=== PATIENT | female | born 1940 | race Caucasian/White ===

== ENCOUNTER 2023-09-25 05:40 | Inpatient (IN) | payer MEDICARE, OTHER, SELFPAY ==
[2023-09-25] VITALS (14 sets, daily range): BP systolic 135–183; BP diastolic 83–105; BMI 19.7; BMI 19.0
--- NOTE | 2023-09-25 02:57 | ED.GENMED ---
History of Present Illness
<DANIEL Engle - Last Filed: 09/25/23 05:15>
General
Chief Complaint: Abdominal Pain
Source: patient
Exam Limitations: none
Time Seen by Provider: 09/25/23 02:41
Nursing documentation reviewed up to this point in time: agreed with
Travel History
Have you had any contact with someone who has COVID-19?: No
Do you have any symptoms of coronavirus? Fever > 100 degrees, chills, cough, shortness of breath, sore throat, loss of taste or smell, muscle aches, or headache?: No
History of Present Illness
History of Present Illness:
This is an 83 year old female with a PMH of Afib, HTN, HLD, COPD, RA, and appendectomy presenting to the ED c/o sudden onset nausea and vomiting. Pt states she was watching TV around 10 pm when she had to run to the bathroom and 'forcefully vomit'.
She vomitied 4 times, all non-bilious and non-bloody. Pt states she ate spaghetti and meatballs for dinner. She is also having associated RLQ abdominal pain that is constant and severe. Pt adds that she felt fatigue and weak yesterday and her legs
have been swollen x 1 week. She denies any fever, chills, LEONARD, CP, diarrhea, constipation, lightheadedness, dizziness, dysuria, flank pain, back pain or hematuria.
Pt is a former smoker, denies alcohol use, and uses medical marijuana.
Past History
<DANIEL Engle - Last Filed: 09/25/23 05:15>
Past History
ED Past Medical History: Arrthythmia (Afib), COPD, HTN and Hypercholesterolemia
ED Past Surgical History: Appendectomy and Gynecological (hysterectomy)
Social History
Tobacco: Former smoker
Alcohol: None
Drug: Marijuana
Personal:
Living: with family
Review of Systems
<DANIEL Engle - Last Filed: 09/25/23 05:15>
Review of Systems
Constitutional: Reports fatigue; Denies fever or chills
Respiratory: Reports trouble breathing; Denies hemoptysis
Cardiac: Denies chest pain or diaphoresis
ABD/GI: Reports abdominal pain, nausea and vomiting; Denies diarrhea or constipated
: Denies dysuria or bleeding
Musculoskeletal: Reports muscle pain and edema
Skin: Reports no symptoms; Denies itching
Neurological: Reports no symptoms; Denies dizzy or headache
Phy Exam
<DANIEL Engle - Last Filed: 09/25/23 05:15>
General Physical Exam
General Presentation: moderate distress
General age: appears stated age
General Skin: warm and dry
General Habitus: elderly and frail
General Mental: alert
General Hydration: dry mucous membranes
Cardiovascular Exam
Cardiovascular Exam: normal peripheral pulses and irregularly irregular
Heart Sounds: normal
Pulmonary Exam
Pulmonary Exam: no wheezing
Oxygen Status: oxygen 2 liters via NC
Cough: no cough
Respirations: mild increase in effort
Breath Sounds: Crackles: right upper and right lower
Gastrointestinal Exam
Gastrointestinal Exam: non distended, guarding and tender (RLQ and periumbilical)
Palpation: right lower quadrant: Severe tenderness
Auscultation of Abdomen: hypoactive
Neurological Exam
Neurological Exam: alert, oriented x3, no sensory deficits and speech normal
Musculoskeletal Exam
Musculoskeletal Exam: edema (pitting edema on b/l lower extremities) and other (tenderness to palpation of b/l lower extremities)
Skin Exam
Skin Exam: normal color and warm/dry
Psychiatric Exam
Psychiatric Exam: normal mood/affect
Course
<DANIEL Engle - Last Filed: 09/25/23 05:15>
Orders/Labs/Results
Orders:
Orders
09/25/23 02:20
Electrocardiogram (*1) Urgent
Reason for Study: Abdominal Pain
EKG- Treatment ONCE
IV Insert/Care/Rem.- Treatment PRN
09/25/23 02:33
Complete Blood Count/With Diff Urgent
09/25/23 03:16
CT Abd/pelvis W Iv Cont Urgent
Comment:
Reason For Exam: rlq abd pain
09/25/23 03:26
Morphine Sulfate 4 mg IV NOW STA
Ondansetron Injectable [Zofran] 4 mg IV NOW STA
09/25/23 03:43
Comprehensive Metabolic Panel Urgent
Lipase Urgent
09/25/23 04:10
HYDROmorphone [Dilaudid] 0.5 mg IV NOW STA
09/25/23 05:02
NG Tube [GI tube insertion- Treatment] ONCE
Urinalysis Reflex To Culture Urgent
Date Specimen was Collected: 09/25/23
Time Specimen was Collected: 05:01
Abnormal Lab Results
09/25/23 09/25/23
02:33 03:43
WBC 17.4 H 10^3/uL
(4.8-10.8)
MCHC 32.9 L g/dL
(33.0-37.0)
RDW 15.3 H %
(11.5-14.5)
Abs Immat Gran (auto) 0.1 H 10^3/uL
(0-0.05)
Absolute Neuts (auto) 14.0 H 10^3/uL
(1.4-6.5)
Absolute Monos (auto) 0.7 H 10^3/uL
(0.1-0.6)
Immature Gran % 0.6 H %
(0-0.5)
Neutrophils % 80.3 H %
(42.2-75.2)
Lymphocytes % 14.3 L %
(20.5-51.1)
BUN 19 H mg/dl
(7-17)
Creatinine 1.2 H mg/dL
(0.6-1.0)
Glucose 145 H mg/dl
(70-99)
Total Protein 5.9 L g/dl
(6.3-8.2)
Albumin 3.4 L g/dl
(3.5-5.0)
09/25/23 02:33
09/25/23 03:43
Vital Signs
Initial and Last Documented VS:
Initial Vital Signs
Temp
97.9 F
09/25/23 02:16
Last Documented Vital Signs
Temp Pulse Resp BP Pulse Ox
97.9 F 87 20 176/90 96
09/25/23 02:16 09/25/23 04:15 09/25/23 04:15 09/25/23 04:58 09/25/23 04:58
<Jesús Cool, - Last Filed: 09/25/23 05:05>
Orders/Labs/Results
Orders:
Orders
09/25/23 02:20
Electrocardiogram (*1) Urgent
Reason for Study: Abdominal Pain
EKG- Treatment ONCE
IV Insert/Care/Rem.- Treatment PRN
09/25/23 02:33
Complete Blood Count/With Diff Urgent
09/25/23 03:16
CT Abd/pelvis W Iv Cont Urgent
Comment:
Reason For Exam: rlq abd pain
09/25/23 03:26
Morphine Sulfate 4 mg IV NOW STA
Ondansetron Injectable [Zofran] 4 mg IV NOW STA
09/25/23 03:43
Comprehensive Metabolic Panel Urgent
Lipase Urgent
09/25/23 04:10
HYDROmorphone [Dilaudid] 0.5 mg IV NOW STA
09/25/23 05:02
NG Tube [GI tube insertion- Treatment] ONCE
Urinalysis Reflex To Culture Urgent
Date Specimen was Collected: 09/25/23
Time Specimen was Collected: 05:01
Abnormal Lab Results
09/25/23 09/25/23
03:43
WBC 17.4 H 10^3/uL
(4.8-10.8)
MCHC 32.9 L g/dL
(33.0-37.0)
RDW 15.3 H %
(11.5-14.5)
Abs Immat Gran (auto) 0.1 H 10^3/uL
(0-0.05)
Absolute Neuts (auto) 14.0 H 10^3/uL
(1.4-6.5)
Absolute Monos (auto) 0.7 H 10^3/uL
(0.1-0.6)
Immature Gran % 0.6 H %
(0-0.5)
Neutrophils % 80.3 H %
(42.2-75.2)
Lymphocytes % 14.3 L %
(20.5-51.1)
BUN 19 H mg/dl
(7-17)
Creatinine 1.2 H mg/dL
(0.6-1.0)
Glucose 145 H mg/dl
(70-99)
Total Protein 5.9 L g/dl
(6.3-8.2)
Albumin 3.4 L g/dl
(3.5-5.0)
09/25/23 02:33
09/25/23 03:43
Vital Signs
Initial and Last Documented VS:
Initial Vital Signs
Temp
97.9 F
09/25/23 02:16
Last Documented Vital Signs
Temp Pulse Resp BP Pulse Ox
97.9 F 87 20 176/90 96
09/25/23 02:16 09/25/23 04:15 09/25/23 04:15 09/25/23 04:58 09/25/23 04:58
<DO Johan Whitfield Last Filed: 09/25/23 05:05>
MDM/Problems Addressed
Differential Diagnosis Includes:
Small bowel obstruction, gastroenteritis, colitis, gallbladder issues, SMA syndrome, GERD
MDM/Problems Addressed:
83-year-old female with sudden onset nausea and vomiting with abdominal pain and right flank pain.
Chronic conditions affecting care:
CVA, COPD, A-fib, hypertension, hyperlipidemia, GERD, anxiety
<Jesús Cool DO - Last Filed: 09/25/23 05:05>
*Radiology
Radiology exam reviewed: radiology read reviewed
*Pulse Oximetry
Patient hypoxic: no
*Critical Care Note
Total Time (30-74mins, 75-104mins- exclusive of procedures): 30
comment:
Critical care statement: A total of 30 minutes of critical care time was provided for this patient. This time is separate from time utilized to perform the aforementioned documented procedures. Aggregate critical care time includes only time
during which I was engaged in work directly related to the patient's care, as described above, whether at the bedside or elsewhere in the Emergency Department.
Data Reviewed
Review of Other/Old Records Reveals: Labs
Source: patient, family and ambulance crew
<DO Johan Whitfield Last Filed: 09/25/23 05:05>
Patient Management
Social determinants of health affecting care: Strong social support
Discussion with other providers: Hospitalist
<DO Johan Whitfield Last Filed: 09/25/23 05:05>
Update Note
Update Note:
CT abdomen and pelvis with intravenous contrast
IMPRESSION:
Distended stomach with narrowed aortomesenteric angle which can be seen in the setting of SMA syndrome.
Acute gastroenteritis and esophagitis with gastroesophageal reflux.
Small bilateral pleural effusions with compressive atelectasis. All that are decompressed. No pancreatitis.
Polycystic kidneys without obstructing renal stone. No diverticulitis. 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 Severe left renal artery stenosis.
Chronic L3 vertebral body compression deformities.
ED Attending Note
<DANIEL Engle - Last Filed: 09/25/23 05:15>
-
Portions of this chart may have been created with voice recognition software.� Occasional wrong word or��sound alike� substitutions may have occurred due to the inherent limitations of voice recognition software.
<Jesús Cool DO - Last Filed: 09/25/23 05:05>
ED Attending Note
Patient seen and examined by attending physician: Yes
I performed the substantive portion of visit, reviewed & personally made and approve the management plan that is documented in note by myself or ANATOLY.: Yes
ED Attending Note:
Pleasant 83-year-old female who presents with nausea. She reports right flank pain. This began quite suddenly while watching television around 10 PM. She states that she vomited 4 times. Patient reports right lower quadrant abdominal pain that
she states is constant. She has had an appendectomy in the past. Denies fever, chills, chest pain, or shortness of breath. Patient was seen in conjunction with the PA student. I have reviewed and agree with the history and treatment plan
presented. On my independent physical exam, patient is awake, alert, and oriented x3, moderate acute distress. Heart is irregularly irregular, tachycardic. Lungs clear to auscultation bilaterally without wheezes rales or rhonchi. Abdomen is firm
diffusely with guarding. Limited bowel sounds throughout. Patient ambulates. She is typically on oxygen. She is on apixaban
Patient given a dose of morphine which did not help. Dilaudid given approximately 20 minutes later.
Discharge Plan
Departure
Patient Disposition: Admit
Date of Disposition: 09/25/23
Time of Disposition: 05:03
Admit to: Telemetry
Presentation/result/management discussed w/ accepting MD/DO: Hospitalist
Discharge Problem:
SMA syndrome, Abdominal pain
Prescriptions:
No Action
buspirone 5 mg Tablet
5 mg PO BID
fluticasone propion-salmeterol [Wixela Inhub] 250-50 mcg/dose Blister With Device
1 inh INHALATION R BID
acetaminophen 325 mg Tablet
650 mg PO Q6HPRN PRN (Reason: mild pain)
rabeprazole [AcipHex] 20 mg Tablet,Delayed Release (Dr/Ec)
20 mg PO DAILY
polyethylene glycol 3350 [Miralax] 17 gram Powder In Packet
17 g PO QPM
diltiazem HCl 240 mg Capsule,Extended Release 24hr
240 mg PO DAILY
bisoprolol fumarate 5 mg Tablet
2.5 mg PO DAILY
simvastatin 20 mg Tablet
20 mg PO QPM
trazodone 150 mg Tablet
150 mg PO HS
mirtazapine 45 mg Tablet
45 mg PO HS
estradiol [Estrace] 0.01 % (0.1 mg/gram) Cream
1 g VAGINAL .2X/WEEK
albuterol sulfate [ProAir HFA] 90 mcg/actuation Hfa Aerosol Inhaler
2 puff INHALATION Q6HPRN PRN (Reason: SOB)
fluticasone propionate 50 mcg/actuation [place],Suspension
2 spray INTRANASAL DAILYPRN PRN (Reason: ALLERGIES)
Humira 40 mg/0.8 mL Syringe Kit
40 mg SC Q2W
Spiriva Respimat 2.5 mcg/actuation Mist
2 inh INHALATION R DAILY
apixaban 2.5 mg Tablet
2.5 mg PO BID
bisoprolol fumarate 5 mg Tablet
2.5 mg PO DAILY Qty: 30 0RF
Referrals:
PRIVATE,PHYSICIAN [Active] -
Interventions
Interventions:
*Risk Screen - Suicide Last Done: 09/25/23 02:20
*General Assessment Last Done: 09/25/23 02:20
*Neglect/Abuse Screening Last Done: 09/25/23 02:20
ED- Fall Risk Assessment Last Done: 09/25/23 02:39
*ED COVID-19 Vaccine History Last Done: 09/25/23 02:20
IH-Tceprc-Vqhnbmplwi Assessment Last Done: 09/25/23 02:30
[2023-09-25 03:10] LABS: % Basophils 0.3 % (0-2); % Eosinophils 0.7 % (0-6); % Immature Granulocytes 0.6 % (0-0.5); % Lymphocytes 14.3 % (20.5-51.1); % Monocytes 3.8 % (1.7-9.3); % Neutrophils 80.3 % (42.2-75.2); Absolute Basophils 0.1 10^3/uL (0-0.2); Absolute Eosinophils 0.1 10^3/uL (0-0.7); Absolute Immature Granulocytes 0.1 10^3/uL (0-0.05); Absolute Lymphocytes 2.5 10^3/uL (1.2-3.4); Absolute Monocytes 0.7 10^3/uL (0.1-0.6); Hematocrit 39.5 % (37.0-47.0); Mean Corp Hgb Conc. 32.9 g/dL (33.0-37.0); Mean Corpuscular Hgb 30.4 pg (27.0-31.0); Mean Corpuscular Volume 92.3 fL (81.0-99.0); Mean Platelet Volume 10.3 fL (7.4-10.4); Nucleated Red Blood Cells % 0 %; Platelet Count 380 10^3/uL (130-400); Red Blood Cell Count 4.28 10^6/uL (4.20-5.40); Red Cell Dist. Width 15.3 % (11.5-14.5); White Blood Cell Count 17.4 10^3/uL (4.8-10.8)
[2023-09-25] MEDS: MORPHINE SULFATE 4 MG IV (03:30)
[2023-09-25] MEDS: ZOFRAN 4 MG IV ×2 (03:30→15:18)
[2023-09-25 04:13] LABS: ALT (SGPT) 12 U/L (0-35); AST (SGOT) 27 U/L (14-36); Albumin 3.4 g/dl (3.5-5.0); Alkaline Phosphatase 97 U/L (38-126); Blood Urea Nitrogen 19 mg/dl (7-17); Calcium 9.3 mg/dl (8.4-10.2); Carbon Dioxide 27 mmol/L (22-30); Chloride 102 mmol/L (98-107); Estimated Creatinine Clearance 30 ml/min; Glucose 145 mg/dl (70-99); Potassium 3.8 mmol/L (3.5-5.1); Sodium 139 mmol/L (135-145); Total Bilirubin 0.7 mg/dl (0.2-1.3); Total Protein 5.9 g/dl (6.3-8.2); eGFR 44.91
[2023-09-25] MEDS: DILAUDID 0.5 MG IV (04:16)
[2023-09-25 04:28] LABS: Lipase 34 U/L (23-300)
--- NOTE | 2023-09-25 05:06 | HPS.HSE ---
Addendum entered and electronically signed by Tim Haji MD 09/25/23 06:01:
Successful NGT placement on 2nd attempt
Immediately drained brownish liquid foloowed by slight blood staind fluid - ? traumatic NGT placement or GIB oozing
- T & S
- Blood consented
- Held Eliquis
- PPI gtt
- H & H q6h
- GI consult
Original Note:
Family Physician
-
Family Physician: PHYSICIAN PRIVATE
Chief Complaint
-
acute N/V and abdominal pain
History of Present Illness
HX male with a PMH of Afib, HTN, HLD, COPD, RA, and appendectomy pw sudden onset nausea and vomiting.
She vomited 4 times, all non-bilious and non-bloody. Pt states she ate spaghetti and meatballs for dinner. POS associated RLQ abdominal pain that is constant and severe. Pt adds that she felt fatigue and weak yesterday and her legs have been swollen
x 1 week.
ROS
She denies any fever, chills, LEONARD, CP, diarrhea, constipation, lightheadedness, dizziness, dysuria, flank pain, back pain or hematuria.
Medical History
Past Medical History
Past Medical History: Reports Other
Additional Past Medical History:
Afib, HTN, HLD, COPD, RA
Past Surgical History: Reports Appendectomy
Social History
Tobacco: Former Smoker
Alcohol: None
Family History
Family History: Not pertinent
Allergies / Home Medications
Allergies reflects when Allergies were last updated in [employer].
Home Medications with original date entered in [facility]
Allergy/Medication List:
Allergies
Allergy/AdvReac Type Severity Reaction Status Date / Time
No Known Drug Allergies Allergy Unknown Verified 09/25/23 02:17
Home Medications
acetaminophen 325 mg tablet 650 mg PO Q6HPRN PRN mild pain 10/19/22
adalimumab 40 mg/0.8 mL subcutaneous syringe kit (Humira) 40 mg SC Q2W Autoimmune disorder 10/19/22
albuterol sulfate 90 mcg/actuation aerosol inhaler (ProAir HFA) 2 puff inhalation Q6HPRN PRN SOB 10/19/22
apixaban 2.5 mg tablet 2.5 mg PO BID Blood clot prevention/tx 10/19/22
bisoprolol fumarate 5 mg tablet 2.5 mg PO DAILY Blood pressure 10/19/22
buspirone 5 mg tablet 5 mg PO BID Mental Health/Anxiety 10/19/22
diltiazem HCl 240 mg capsule,extended release 24 hr 240 mg PO DAILY Arrhythmia 10/19/22
estradiol 0.01% (0.1 mg/gram) vaginal cream (Estrace) 1 g vaginal .2X/WEEK Hormonal agent 10/19/22
fluticasone 250 mcg-salmeterol 50 mcg/dose blistr powdr for inhalation (Wixela Inhub) 1 inh inhalation R BID Lung/breathing issues 10/19/22
fluticasone propionate 50 mcg/actuation nasal spray,suspension 2 spray intranasal DAILYPRN PRN ALLERGIES 10/19/22
mirtazapine 45 mg tablet 45 mg PO HS Mental Health/Anxiety 10/19/22
polyethylene glycol 3350 17 gram oral powder packet (Miralax) 17 g PO QPM Constipation 10/19/22
rabeprazole 20 mg tablet,delayed release (AcipHex) 20 mg PO DAILY Gastrointestinal issue 10/19/22
simvastatin 20 mg tablet 20 mg PO QPM High cholesterol 10/19/22
tiotropium bromide 2.5 mcg/actuation mist for inhalation (Spiriva Respimat) 2 inh inhalation R DAILY Lung/breathing issues 10/19/22
trazodone 150 mg tablet 150 mg PO HS Sleep 10/19/22
bisoprolol fumarate 5 mg tablet 2.5 mg PO DAILY #30 tabs 10/22/22
Review of Systems
-
Constitutional: Reports No Symptoms
EENT: Reports No Symptoms
Respiratory: Reports No Symptoms
Cardiac: Reports No Symptoms
Abdomen/GI: Reports See HPI
: Reports No Symptoms
Musculoskeletal: Reports No Symptoms
Skin: Reports No Symptoms
Neurological: Reports No Symptoms
Endocrine: Reports No Symptoms
Hematologic/Lymphatic: Reports No Symptoms
Psych: Reports No Symptoms
Physical Exam
Vital Signs
Vital Signs
Temp Pulse Resp BP Pulse Ox
97.9 F 100 27 160/90 97
09/25/23 02:16 09/25/23 04:05 09/25/23 04:05 09/25/23 04:05 09/25/23 04:05
Physical Exam
General: Other (see below )
Laboratory Results
-
09/25/23 02:33
09/25/23 03:43
Laboratory Results
Total Bilirubin 0.7 mg/dl (0.2-1.3) 09/25/23 03:43
AST 27 U/L (14-36) 09/25/23 03:43
ALT 12 U/L (0-35) 09/25/23 03:43
Alkaline Phosphatase 97 U/L (38-126) 09/25/23 03:43
Lipase 34 U/L (23-300) 09/25/23 03:43
Data Reviewed
-
CT Scan: Report Reviewed by me
Lab Data: Labs Reviewed by me
Old Records: Reviewed
Impression/Plan
-
Reviewed VS: afebrile RR27 ST 100 BP 160/90
PE
Gen: mod distress
HEENT: anicteric
Neck: supple
Lungs: CTA
Cor:
Abdomen: distended abdomen, RLQ tenderness
[employer] AD[facility]: AAO3 , grossly normal
MS: no edema
Psych: nl mood and affect
Data
WCC 17.4
BUN 19
Cr 1.2 - 1.3 on 10/22/22
eGFR 45 c/w CKD3a
CT AP w IV contrast
- Distended stomach with narrowed aortomesenteric angle which can be seen in the setting of SMA syndrome.
- Acute gastroenteritis and esophagitis with gastroesophageal reflux.
- Small bilateral pleural effusions with compressive atelectasis. All that are decompressed. No pancreatitis.
- Polycystic kidneys without obstructing renal stone. No diverticulitis. 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 Severe left renal artery stenosis.
Chronic L3 vertebral body compression deformities.
EKG
ATRIAL FIBRILLATION WITH RAPID VENTRICULAR RESPONSE WITH PREMATURE VENTRICULAR
OR ABERRANTLY CONDUCTED COMPLEXES
LOW VOLTAGE QRS
CANNOT RULE OUT ANTERIOR INFARCT (CITED ON OR BEFORE 19-OCT-2022)
MARKED ST ABNORMALITY, POSSIBLE INFERIOR SUBENDOCARDIAL INJURY
ABNORMAL ECG
WHEN COMPARED WITH ECG OF 19-OCT-2022 14:26,
SIGNIFICANT CHANGES HAVE OCCURRED
Last hospitalist admission: 10/19/22- 10/22/22
1. Acute cerebrovascular accident.
2. Chronic persistent atrial fibrillation.
3. Left epistaxis, status post ENT cauterization on October 14
and again on October 17.
4. Essential hypertension.
5. Hyperlipidemia.
6. Rheumatoid arthritis on Humira.
ASSESSMENT & PLAN
Acute N/V and abdominal pain
CT PS for distended stomach with narrowed aortomesenteric angle which can be seen in the setting of SMA syndrome.
- NPO and NGT to decompress
- IVF
- anti emetics
- narcotic analgesia
- GS consult
HX AF on Eliquis
- cont Eliquis especailly with SMA syndrome
PCKdz per CT - patient just found that out
CKD3a/b
- Observe Cr
PHX
CVA Status Post tPA
HX Epistaxis s/p Cauterization
COPD
HTN
Kidney stones
Rheumatoid arthritis (on Humira)
Reflux
Anxiety
DVT Px: on Eliquis
Code: Full
IP TLM
[2023-09-25 05:28] LABS: Urine Albumin 1+ (Neg - Trace); Urine Bilirubin Negative (Negative); Urine Character Very Cloudy (Clear); Urine Color Yellow; Urine Glucose Negative (Negative); Urine Ketone Negative (Negative); Urine Leukocyte 2+ (Negative); Urine Nitrite Negative (Negative); Urine Occult Blood 2+ (Negative); Urine Urobilinogen Negative (Neg - 1+); Urine pH 6.5 (5.0-9.0)
[2023-09-25 05:54] LABS: Urine Amorphous Seen; Urine Mucus Many; Urine Squamous Cell >30 /LPF (Few)
[2023-09-25 05:55] LABS: Urine Bacteria Many (Negative); Urine White Cell >100 /HPF (0-5)
[2023-09-25 06:14] LABS: Hematocrit 37.5 % (37.0-47.0); Hemoglobin 12.7 g/dL (12.0-16.0); Mean Corp Hgb Conc. 33.9 g/dL (33.0-37.0); Mean Corpuscular Hgb 30.6 pg (27.0-31.0); Mean Corpuscular Volume 90.4 fL (81.0-99.0); Mean Platelet Volume 9.8 fL (7.4-10.4); Platelet Count 360 10^3/uL (130-400); Red Blood Cell Count 4.15 10^6/uL (4.20-5.40); Red Cell Dist. Width 15.1 % (11.5-14.5); White Blood Cell Count 16.5 10^3/uL (4.8-10.8)
[2023-09-25] MEDS: PROTONIX 100 IV (06:24)
[2023-09-25] MEDS: NSS 1000 IV ×2 (06:24→23:09)
[2023-09-25 06:25] LABS: Blood Urea Nitrogen 19 mg/dl (7-17); Calcium 9.5 mg/dl (8.4-10.2); Carbon Dioxide 26 mmol/L (22-30); Chloride 101 mmol/L (98-107); Estimated Creatinine Clearance 33 ml/min; Glucose 125 mg/dl (70-99); Potassium 4.6 mmol/L (3.5-5.1); Sodium 138 mmol/L (135-145); eGFR 49.86
--- NOTE | 2023-09-25 08:57 | CON.GI ---
Addendum entered and electronically signed by Radu Simon MD 09/25/23 10:53:
Patient seen and examined, agree with respecters note. Patient is an 83-year-old female who presents with acute onset of abdominal pain. She has had chronic symptoms for many years, with about a 30 pound weight loss over the past several years
with early satiety, decreased appetite and nausea. She had seen Dr. Salinas and has had a workup in the past which has been unremarkable including EGDs previously. CAT scan here results are currently pending though on my review there is definitely
abnormal loops of small intestine in the pelvis. Given her chronic symptoms and CT findings, possible adhesions and partial small bowel obstruction causing resultant slow transit and delayed gastric emptying. She is having bowel movements, on exam
with few bowel sounds mildly distended though soft. At this point will start clear liquid diet, plan upper GI with small bowel follow-through which will help also rule out SMA syndrome as suggested on the initial CT scan which clinically seems much
less likely, and also help evaluate small bowel downstream.
Addendum entered and electronically signed by CHAPIN Renteria 09/25/23 09:49:
some elevated FBS on admission- hbgA1C pending for 09/26
Original Note:
Consultation
-
Date/Time Consultation Requested: 09/25/23 0730
Date/Time Consultation Performed: 09/25/23 0850
Requesting Provider: Tim Haji MD
Performing Provider: CHAPIN Renee, Paul Simon MD
Reason for Consultation: nausea/vomiting/abdominal pain abnormal imaging
Medical History
Chief Complaint / HPI
Chief Complaint: abnormal imaging
History of Present Illness:
Pt is an 83yo with hx Afib on Eliquis, RA on Humira, HTN, HLD, COPD and prior appe with onset of nausea and vomiting. On admission preliminary CT with distended stomach with narrowing of angiomesenteric angle with concern for SMA syndrome. In
reviewing with patient she has had about 30-40 lb wt loss over several years. She has been followed by Dr. Salinas but seeking new GI as MD is retiring. She began with worsening reflux currently on Aciphex. She then began with increased nausea,
fullness, decreased appetite and poor sense of taste in mouth. She was seen by Dr. Salinas who declined to proceed with EGD due to underlying lung disease and recently was ordered from Gastric emptying scan by PCP due at [facility] in next few weeks.
She even started medical marijuana about 2 weeks ago. She was noted with onset of nausea after eating spaghetti dinner around 5 PM then vomiting large volume about 7 pm prior to admission. She initially felt better then began with abdominal
pain and present for admission. Per records NGT was placed and ER with noted drainage of brownish liquid with concern for traumatic NGT placement and NGT was d/c per patient by surgery.
She currently admits to ongoing GERD but feeling better but frustrated with ongoing inability to eat. She has some constipation and has been on Miralax as recommended by her urologist with hx UTI's and bowel issues. She denies dysphagia,
odynophagia, hematemesis, diarrhea, blood or black in stools. Last EGD and colonoscopy with Dr. Salinas recalls as stable with noted reflux. Last procedures at 2013 with normal EGD with neg bx and colon with diverticulosis and hemorrhoids.
Past Medical History
Past Medical History: Arrhythmias (afib on Eliquis), COPD, HTN, Hypercholesterolemia and Other (RA on Humira, UTI's)
Past Surgical History: Appendectomy
Social History
Tobacco: Former Smoker
Alcohol: None
Drug: Marijuana
Personal:
Living: With Family
Employment: Retired
Family History
Family History: Other (pt denies but her records family hx colon CA)
Allergies / Home Medications
Allergy/AdvReac Type Severity Reaction Status Date / Time
No Known Drug Allergies Allergy Unknown Verified 09/25/23 02:17
Medication Instructions Recorded
acetaminophen 325 mg tablet 650 mg PO Q6HPRN PRN mild pain 10/19/22
adalimumab 40 mg/0.8 mL 40 mg SC Q2W Autoimmune disorder 10/19/22
subcutaneous syringe kit (Humira)
albuterol sulfate 90 mcg/actuation 2 puff inhalation Q6HPRN PRN SOB 10/19/22
aerosol inhaler (ProAir HFA)
apixaban 2.5 mg tablet 2.5 mg PO BID Blood clot 10/19/22
prevention/tx
bisoprolol fumarate 5 mg tablet 2.5 mg PO DAILY Blood pressure 10/19/22
buspirone 5 mg tablet 5 mg PO BID Mental Health/Anxiety 10/19/22
diltiazem HCl 240 mg 240 mg PO DAILY Arrhythmia 10/19/22
capsule,extended release 24 hr
estradiol 0.01% (0.1 mg/gram) 1 g vaginal .2X/WEEK Hormonal agent 10/19/22
vaginal cream (Estrace)
fluticasone 250 mcg-salmeterol 50 1 inh inhalation R BID 10/19/22
mcg/dose blistr powdr for Lung/breathing issues
inhalation (Wixela Inhub)
fluticasone propionate 50 2 spray intranasal DAILYPRN PRN 10/19/22
mcg/actuation nasal ALLERGIES
spray,suspension
mirtazapine 45 mg tablet 45 mg PO HS Mental Health/Anxiety 10/19/22
polyethylene glycol 3350 17 gram 17 g PO QPM Constipation 10/19/22
oral powder packet (Miralax)
rabeprazole 20 mg tablet,delayed 20 mg PO DAILY Gastrointestinal 10/19/22
release (AcipHex) issue
simvastatin 20 mg tablet 20 mg PO QPM High cholesterol 10/19/22
tiotropium bromide 2.5 2 inh inhalation R DAILY 10/19/22
mcg/actuation mist for inhalation Lung/breathing issues
(Spiriva Respimat)
trazodone 150 mg tablet 150 mg PO HS Sleep 10/19/22
bisoprolol fumarate 5 mg tablet 2.5 mg PO DAILY #30 tabs 10/22/22
Review of Systems
-
History Source: Patient
Constitutional: Reports Weight Loss (over time 40 lbs ) and Fatigue
EENT: Reports Other (decreased taste sensation)
Respiratory: Reports Trouble Breathing (with COPD on chronic O2 )
Cardiac: Reports No Symptoms
Abdomen/GI: Reports Abdominal Pain, Nausea, Vomiting, Constipated and Anorexia
: Reports Other (prior hx UTI's)
Musculoskeletal: Reports No Symptoms
Skin: Reports No Symptoms
Neurological: Reports Weakness
Endocrine: Reports No Symptoms
Hematologic/Lymphatic: Reports No Symptoms
Vital Signs
Temp Pulse Resp BP Pulse Ox
98.2 F 128 20 183/99 97
09/25/23 08:15 09/25/23 08:15 09/25/23 08:15 09/25/23 08:15 09/25/23 08:15
Physical Exam
Exam
General: Well Developed, Well Nourished, No Apparent Distress and Other (thin appearing )
HEENT: Normocephalic and Anicteric
Respiratory: Clear
Cardiac: Regular Rhythm
GI: Soft, Non Tender and Non Distended
Musculoskeletal: No Clubbing and No Cyanosis
Skin: Warm and Dry
Neuro: Awake, Alert and AO x 3
Psych: Calm and Other (tearful with ongoing symptoms )
Results
WBC 16.5 10^3/uL (4.8-10.8) H 09/25/23 06:01
Hgb 12.7 g/dL (12.0-16.0) 09/25/23 06:01
Hct 37.5 % (37.0-47.0) 09/25/23 06:01
MCV 90.4 fL (81.0-99.0) 09/25/23 06:01
Plt Count 360 10^3/uL (130-400) 09/25/23 06:01
Absolute Neuts (auto) 14.0 10^3/uL (1.4-6.5) H 09/25/23 02:33
Sodium 138 mmol/L (135-145) 09/25/23 06:01
Potassium 4.6 mmol/L (3.5-5.1) 09/25/23 06:01
Chloride 101 mmol/L (98-107) 09/25/23 06:01
Carbon Dioxide 26 mmol/L (22-30) 09/25/23 06:01
BUN 19 mg/dl (7-17) H 09/25/23 06:01
Creatinine 1.1 mg/dL (0.6-1.0) H 09/25/23 06:01
Calcium 9.5 mg/dl (8.4-10.2) 09/25/23 06:01
Total Bilirubin 0.7 mg/dl (0.2-1.3) 09/25/23 03:43
AST 27 U/L (14-36) 09/25/23 03:43
ALT 12 U/L (0-35) 09/25/23 03:43
Alkaline Phosphatase 97 U/L (38-126) 09/25/23 03:43
Lipase 34 U/L (23-300) 09/25/23 03:43
Diagnostic Image Results:
Prior GI Procedures:
EGD: 2013 normal with neg bx
Colonoscopy: 2013 with diverticulosis and hemorrhoids.
Assessment / Plan
-
Pt is an 83yo with hx Afib on Eliquis, RA on Humira, HTN, HLD, COPD and prior appe with onset of nausea and vomiting. On admission preliminary CT with distended stomach with narrowing of angiomesenteric angle with concern for SMA syndrome. In
reviewing with patient she has had about 30-40 lb wt loss over several years. She has been followed by Dr. Salinas but seeking new GI as MD is retiring. She began with worsening reflux currently on Aciphex. She then began with increased nausea,
fullness, decreased appetite and poor sense of taste in mouth. She was seen by Dr. Salinas who declined to proceed with EGD due to underlying lung disease and recently was ordered from Gastric emptying scan by PCP due at [facility] in next few weeks.
She even started medical marijuana about 2 weeks ago. She was noted with onset of nausea after eating spaghetti dinner around 5 PM then vomiting about 7 pm prior to admission. She initially felt better then began with abdominal pain and present
for admission. Per records NGT was placed and ER with noted drainage of brownish liquid with concern for traumatic NGT placement and NGT was d/c per patient by surgery.
-nausea/vomiting with worsening GERD, nausea, decreased appetite with wt loss prior to admission
-initial CT with concern for SMA syndrome
-right sided abdominal pain
-leukocytosis
-COPD with O2 dependence
-GERD on Aciphex
-wt loss
-recent start of medical Marijuana
other medical problems:
-afib on Eliquis
-RA in Humira
-HTN
-hyperlipidemia
-Prior appe
PLAN:
etiology of symptoms with wt loss, dysgeusia, nausea, and now vomiting related to SMA syndrome as suggest on initial CT read, gastroparesis, marijuana related to recent start of treatment vs other underlying GI disorder
NGT currently out
await final reading of CT
NPO if no further vomiting consider trial of clear diet
pt is scheduled for OP gastric emptying scan at [facility] after discharge
will need GI follow up. Pt prefers follow up here as due Dr. Salinas in retiring with prior follow in past
discussed avoidance of Marijuana as can cause some nausea symptoms
trend CBC with leukocytosis
cont PPI gtt for now with worsening GERD
limit narcotics as able as if underlying gastroparesis may worsen symptoms
-
-
Thank you for consultation and allowing me to participate in the patient's care. Please call the manager flight operations GI physician during the after hours with any questions or concerns.
--- NOTE | 2023-09-25 09:00 | PTCARENOTE ---
pt admitted to room 2110 from the ED at 0730. pt alert and able to ambulate from stretcher to bed with assistance of 1. pt feeling generally weak. admission database completed as documented. assessment completed. pt oriented to room,
environment and plan of care with verbalized understanding. pt denies nausea or abdominal discomfort. Right Nare NG Tube patent on admit and removed by Dr Arndt at the bedside. pt wears O2 3L NC as needed at home and has available at bedside.
pt aware of ice chips and sips of water as only. will observe.
--- NOTE | 2023-09-25 09:16 | CON.GS ---
Consultation
-
Requesting Provider: Adithya
Performing Provider: Hair
Reason for Consultation: suspected SMA syndrome
Medical History
-
Chief Complaint: Abd pain
History of Present Illness:
83F with 3 year hx progressive wt loss of unknown etiology. Reports poor appetite and food tasting bad. Denies chronic issues with n/v, it seems her poor PO tolerance is not related to a n/v issue. She follows with GI for this issue but is not a
good historian as far as what the current plan for mgmt is. Last night she ate spaghetti and meatballs. Her also ate this and did not become ill. Several hours after dinner she developed sudden onset vomiting. Only some dark liquid came out,
her dinner did not. Denies f/c. She has been passing flatus throughout this episode and BMs as well, including a BM and flatus this am. Her nausea is resolved, she still c/o RLQ pain this am. She is on eliquis last dose last night. She has COPD and
is on home O2 3L. NGT was placed overnight with minimal output.
Past Medical History
Past Medical History: Arrhythmias (afib on eliquis), COPD (home O2 3L), HTN, Hypercholesterolemia and Other (RA on humira)
Social History
Tobacco: Former Smoker
Alcohol: None
Drug: None
Personal:
Living: With Family
Family History
Family History: Reviewed & Noncontributory
Allergies / Home Medications
Allergy/AdvReac Type Severity Reaction Status Date / Time
No Known Drug Allergies Allergy Unknown Verified 09/25/23 02:17
Medication Instructions Recorded Confirmed Type
acetaminophen 325 mg tablet 650 mg PO Q6HPRN PRN mild pain 10/19/22 10/19/22 History
adalimumab 40 mg/0.8 mL 40 mg SC Q2W Autoimmune disorder 10/19/22 10/19/22 History
subcutaneous syringe kit (Humira)
albuterol sulfate 90 mcg/actuation 2 puff inhalation Q6HPRN PRN SOB 10/19/22 10/19/22 History
aerosol inhaler (ProAir HFA)
apixaban 2.5 mg tablet 2.5 mg PO BID Blood clot 10/19/22 10/19/22 History
prevention/tx
bisoprolol fumarate 5 mg tablet 2.5 mg PO DAILY Blood pressure 10/19/22 10/19/22 History
buspirone 5 mg tablet 5 mg PO BID Mental Health/Anxiety 10/19/22 10/19/22 History
diltiazem HCl 240 mg 240 mg PO DAILY Arrhythmia 10/19/22 10/19/22 History
capsule,extended release 24 hr
estradiol 0.01% (0.1 mg/gram) 1 g vaginal .2X/WEEK Hormonal agent 10/19/22 10/19/22 History
vaginal cream (Estrace)
fluticasone 250 mcg-salmeterol 50 1 inh inhalation R BID 10/19/22 10/19/22 History
mcg/dose blistr powdr for Lung/breathing issues
inhalation (Wixela Inhub)
fluticasone propionate 50 2 spray intranasal DAILYPRN PRN 10/19/22 10/19/22 History
mcg/actuation nasal ALLERGIES
spray,suspension
mirtazapine 45 mg tablet 45 mg PO HS Mental Health/Anxiety 10/19/22 10/19/22 History
polyethylene glycol 3350 17 gram 17 g PO QPM Constipation 10/19/22 10/19/22 History
oral powder packet (Miralax)
rabeprazole 20 mg tablet,delayed 20 mg PO DAILY Gastrointestinal 10/19/22 10/19/22 History
release (AcipHex) issue
simvastatin 20 mg tablet 20 mg PO QPM High cholesterol 10/19/22 10/19/22 History
tiotropium bromide 2.5 2 inh inhalation R DAILY 10/19/22 10/19/22 History
mcg/actuation mist for inhalation Lung/breathing issues
(Spiriva Respimat)
trazodone 150 mg tablet 150 mg PO HS Sleep 10/19/22 10/19/22 History
bisoprolol fumarate 5 mg tablet 2.5 mg PO DAILY #30 tabs 10/22/22 Rx
Review of Systems
-
A 10 point review of systems was completed, and was negative except as per HPI.
Physical Exam
Vital Signs
Temp Pulse Resp BP Pulse Ox
98.2 F 128 20 183/99 97
09/25/23 08:15 09/25/23 08:15 09/25/23 08:15 09/25/23 08:15 09/25/23 08:15
09/24/23 09/25/23 09/26/23
06:59 06:59 06:59
Actual Weight 53.6 kg
Body Mass Index (BMI) 19.7
Lab Results
09/25/23 06:01
WBC 16.5 10^3/uL (4.8-10.8) H 09/25/23 06:01
Hgb 12.7 g/dL (12.0-16.0) 09/25/23 06:01
Hct 37.5 % (37.0-47.0) 09/25/23 06:01
Plt Count 360 10^3/uL (130-400) 09/25/23 06:01
Abs Immat Gran (auto) 0.1 10^3/uL (0-0.05) H 09/25/23 02:33
Neutrophils % 80.3 % (42.2-75.2) H 09/25/23 02:33
Physical Exam
General: Well Developed, No Apparent Distress and Poor Appetite
HEENT: Normocephalic and Anicteric
GI: Soft, Non Distended and Tender (very mild ttp to RLQ)
Skin: Warm and Dry
Neuro: AO x 3
Psych: Calm
Data Reviewed
-
CT Scan: Image Personally Visualized and interpreted, Report Reviewed by me and Discussed with Patient
Labs: Labs Reviewed by me and Discussed with Patient
Assessment / Plan
-
83F with suspected gastroenteritis in setting of chronic progressive anorexia/wt loss of unknown etiology
AFVSS, passing BMs and flatus, persistent mild RLQ pain
WBC 17.4K --> 16.5K
Cr 1.2 --> 1.1
CT A/P with dilated proximal small bowel and somewhat decompressed distal sb without clear transition point, stomach is dilated but duodenum is not, large cysts on B/L kidneys with some mild mass effect on the colon, however there is air and stool
throughout the colon
I do not suspect SMA syndrome here as there is no duodenal distention and she has not had issues with upper abd post-prandial pain or regurgitation. Most likely this is acute gastroenteritis, though I do not have a good explanation for her chronic
issue. Suspect RLQ pain 2/2 cecal distention with air/stool
Plan:
Agree with GI consult
No indication for surgical intervention
DC NGT, start sips/chips
May benefit from EGD though not necessarily in the acute setting, this may be complicated by her COPD as well
Defer mgmt to GI at this time
Pls call with ?s
[2023-09-25] MEDS: APRESOLINE 5 MG IV (09:22)
--- NOTE | 2023-09-25 11:46 | PTCARENOTE ---
pt assisted to stretcher, O2 3L NC maintained and transported to X-RAY dept w/volunteer.
[2023-09-25 11:50] LABS: Hematocrit 35.9 % (37.0-47.0); Hemoglobin 12.1 g/dL (12.0-16.0)
--- NOTE | 2023-09-25 13:58 | CM ---
Chart reviewed. Spoke with pt at bedside
pt lives with in split level home
assists as needed
Has home O2 - baseline 3L - has commode, shower chair and rolling walker
Denies past HH. Has been to SNF in past - unsure of facility
Will have ride at d/c
PCP - Dr Luo
Pharm - [facility]
CM will follow for home needs
Plan - Anticipate home to previous setting - needs tbd
[2023-09-25] MEDS: FLUSH (NSS) 2 FLUSH IV (15:18)
--- NOTE | 2023-09-25 15:30 | PTCARENOTE ---
pt returned from Radiology and assisted to ambulate to bathroom and then return to bed. pt c/o headache and nausea. refused oral gaviscon and medicated with Zofran per OCT. at bedside.
[2023-09-25] MEDS: GAVISCON LIQUID 30 ML PO (16:20)
[2023-09-25] MEDS: TYLENOL 650 MG PO (16:20)
[2023-09-25 17:31] LABS: Glucose - Point of Care 91 mg/dl (70-99)
[2023-09-25] MEDS: NOVOLOG FLEXPEN-LOW RESISTANCE SC ×2 (17:35→23:50)
[2023-09-25 18:34] LABS: Hematocrit 30.5 % (37.0-47.0); Hemoglobin 10.5 g/dL (12.0-16.0)
[2023-09-25 23:44] LABS: Glucose - Point of Care 86 mg/dl (70-99)
[2023-09-26] VITALS (7 sets, daily range): BP systolic 120–164; BP diastolic 53–110
[2023-09-26 00:31] LABS: Hematocrit 30.9 % (37.0-47.0); Hemoglobin 10.2 g/dL (12.0-16.0)
[2023-09-26 05:48] LABS: Glucose - Point of Care 76 mg/dl (70-99)
[2023-09-26] MEDS: NOVOLOG FLEXPEN-LOW RESISTANCE SC ×3 (05:52→17:43)
--- NOTE | 2023-09-26 06:08 | W.PN.GI.CBS2 ---
Today's Communication / Plan
-
See assessment and plan for details.
Assessment / Plan
-
1. Early satiety/weight loss: Symptoms consistent with delayed gastric emptying, with suggestion of SMA syndrome on CT scan with narrowed aortomesenteric angle and dilated stomach and proximal duodenum. There did seem to be some dilated small
loops of bowel distally on CT scan, though upper GI with small bowel follow-through again shows markedly delayed gastric emptying with dilated duodenum transitioning across the midline at the expected area of the SMA to decompressed for portion of
the duodenum, with some mildly delayed transit distally though no significant dilation. Again most of her symptoms are delayed gastric emptying and given now imaging both on CT scan and upper GI is consistent with SMA syndrome. This may be more
from dense atherosclerosis noted on CT scan. At this point we discussed dietary supportive care, with small, frequent meals, would stick to a full liquid diet for now with dietary supplementation with Ensure. We discussed that she should be able
to maintain her nutrition, hopefully to gain weight with grazing on a full liquid diet with supplementation, and if she were to gain some weight this could help. She would likely be a poor surgical candidate for any vascular or GI surgical
intervention right now.
Subjective
Subjective
Date of Service: September 26, 2023
Patient doing okay overall, no vomiting, tolerated upper GI without difficulty. No fevers or chills.
Objective
Data Reviewed
Laboratory Data:
Laboratory Results
Total Bilirubin 0.7 mg/dl (0.2-1.3) 09/25/23 03:43
AST 27 U/L (14-36) 09/25/23 03:43
ALT 12 U/L (0-35) 09/25/23 03:43
Alkaline Phosphatase 97 U/L (38-126) 09/25/23 03:43
Lipase 34 U/L (23-300) 09/25/23 03:43
Vital Signs and I&O:
Vital Signs
Temp Pulse Resp BP Pulse Ox
98.1 F 102 18 154/102 96
09/26/23 03:51 09/26/23 03:51 09/26/23 03:51 09/26/23 03:51 09/26/23 03:51
I&O
09/24/23 09/25/23 09/26/23
06:59 06:59 06:59
Intake Total 1839
Output Total 250 / 250
Balance -250 / -250 1839
Physical Exam
Physical Exam
General: NAD
Abdomen: normal bowel sounds, soft, no tenderness, no masses or bruits, no ascites
[2023-09-26 06:12] LABS: Hematocrit 34.2 % (37.0-47.0); Hemoglobin 11.3 g/dL (12.0-16.0); Mean Corpuscular Hgb 30.5 pg (27.0-31.0); Mean Corpuscular Volume 92.2 fL (81.0-99.0); Mean Platelet Volume 9.8 fL (7.4-10.4); Platelet Count 291 10^3/uL (130-400); Red Blood Cell Count 3.71 10^6/uL (4.20-5.40); Red Cell Dist. Width 15.1 % (11.5-14.5)
[2023-09-26 06:39] LABS: Blood Urea Nitrogen 14 mg/dl (7-17); Calcium 7.8 mg/dl (8.4-10.2); Carbon Dioxide 27 mmol/L (22-30); Chloride 102 mmol/L (98-107); Estimated Creatinine Clearance 39 ml/min; Glucose 78 mg/dl (70-99); Potassium 3.7 mmol/L (3.5-5.1); Sodium 136 mmol/L (135-145); eGFR > 60.00
[2023-09-26] MEDS: PROTONIX IV 40 MG IV (07:30)
[2023-09-26] MEDS: NSS (PRESERVATIVE FREE) 10 ML IV (07:30)
[2023-09-26] MEDS: ProAIR HFA INHALER INH (08:17)
[2023-09-26] MEDS: ADVAIR HFA 115/21 MCG INHALER 2 PUFF INH ×2 (08:17→19:28)
[2023-09-26] MEDS: SPIRIVA RESPIMAT 2.5 MCG 2 PUFF INH (08:20)
[2023-09-26] MEDS: ProAIR HFA INHALER 2 PUFF INH (08:22)
[2023-09-26] MEDS: APRESOLINE 5 MG IV (08:51)
[2023-09-26] MEDS: NSS 1000 IV (08:51)
--- NOTE | 2023-09-26 09:12 | W.PN.HOSP.TC ---
Today's Communication/Plan
-
IV Lopressor. Resume Cardizem.
Pharmacy to complete med rec.
Resume Eliquis.
Advance diet per GI.
Assessment / Plan
Assessment / Plan
Nausea vomiting with worsening reflux.
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 Upper GI series with small bowel follow-through also raises concern about duodenal compression and SMA syndrome.
She is delayed gastric emptying unclear if it is because of external compression of duodenum or motility problem.
Severe gastric reflux noted on upper GI series
GI and surgery following -currently on clear liquid diet
Continue with PPI IV
Rapid atrial fibrillation-hemodynamically stable. Patient known to have permanent atrial fibrillation. She has not received beta-edilma and Cardizem because of GI issues. She is without chest pain or palpitation. Will give a dose of IV
Lopressor and since she is on clear liquids will restart her Cardizem. Follow on telemetry.
Shortness of breath-patient complains of being short of breath-control atrial fibrillation. Obtain a chest x-ray. She is known to have COPD. Currently without any active wheeze. Reassume her home inhaler therapy.
COPD-continue with home inhaler therapy
Chronic hypoxic respiratory insufficiency-patient on home O2-continue with 2 L of oxygen
History of CVA- Last episode 10/2022 -felt thromboembolic- on Eliquis [last taken on Saturday evening]. Discussed with GI and surgery-no plans for interventions. Resume Eliquis starting today.
Essential HTN - cw home meds and follow
RA on Humira
Full code
Anticipated Discharge: 24 - 48 hours
Subjective/Interval History
-
Date of Service: September 26, 2023
Does not feel well with the stomach. She feels queasy. Nauseous. No vomiting. Had a bowel movement since admission.
She also is feeling short of breath and anxious. She wants her BuSpar to be given back. She denies any chest pain or palpitations.
Her monitor car operator shows she is in rapid A-fib. She follows with cardiology at [facility].
She did not get her beta-edilma or Cardizem this morning.
Complains of shortness of breath but not cough or phlegm.
She is known to have COPD and uses oxygen at home and inhaler therapy as well.
Objective Data
-
Labs:
Laboratory Results
09/26/23 09/26/23 09/26/23
00:17 05:47 05:48
WBC 10.0
Hgb 10.2 L 11.3 L
Hct 30.9 L 34.2 L
Plt Count 291
Sodium 136
Potassium 3.7
Chloride 102
Carbon Dioxide 27
BUN 14
Creatinine 0.9
Glucose 78
Calcium 7.8 L D
Vital Signs:
Vital Signs
Temp Pulse Resp BP Pulse Ox
97.6 F 130 20 164/110 99
09/26/23 07:10 09/26/23 08:32 09/26/23 08:32 09/26/23 07:10 09/26/23 08:32
I&O
09/25/23 09/26/23 09/27/23
06:59 06:59 06:59
Intake Total 1839
Output Total 250 / 250
Balance -250 / -250 1839
Review of Systems
-
Constitutional: Denies Fever
EENT: Denies Sore Throat
Respiratory: Reports Trouble Breathing; Denies Cough
Cardiac: Denies Chest Pain
Abdomen/GI: Reports Nausea
Neuro: Denies Dizzy
Physical Exam
-
General: No Apparent Distress
HEENT: Moist Mucous Membranes
Respiratory: Crackles (rt base > lt base); Negative Wheezes or Accessory Resp Muscle Use
Cardiac: S1/S2, Irregular Rhythm and Tachycardic
GI: Soft, Nontender and Normal Bowel Sounds
Neuro: AO x 3
Data Reviewed
-
CT Scan: Report Reviewed by me (CT A/P)
Labs: Labs Reviewed by me
[2023-09-26] MEDS: LOPRESSOR 5 MG IV (09:18)
[2023-09-26 09:24] LABS: Glycohemoglobin (HgbA1c) 5.8 % (4.0-5.6)
[2023-09-26] MEDS: ELIQUIS 2.5 MG PO ×2 (10:00→20:14)
[2023-09-26] MEDS: CARDIZEM CD 240 MG PO (10:00)
[2023-09-26] MEDS: GAVISCON LIQUID 30 ML PO (10:58)
[2023-09-26] MEDS: ZOFRAN 4 MG IV (11:02)
[2023-09-26 12:23] LABS: Glucose - Point of Care 128 mg/dl (70-99)
[2023-09-26] MEDS: LOPRESSOR 2.5 MG IV (12:44)
[2023-09-26] MEDS: VENTOLIN NEBULES 2.5 MG INH (12:57)
--- NOTE | 2023-09-26 14:18 | W.PN.UPDATE ---
Update Note
Progress Note Update
Called to see re:More SOB this afternoon.
She is currently bundled up in blankets as she is feeling cold but temp is ok ;she is afebrile.
She says i can breath ' help me'
She feels nervous
No chest pain
Tachypnea noted
SaO2 97% on 2l ( normally per pt on 3l at home)
Chest BL expiratory wheeze and bl basal crackles
CXR shows BL R> L small pleural effusions . No pulm edema.
Acute shortness of breath with acute reactive airways -patient did receive IV Lopressor for her heart rate control along with Cardizem this morning. She is normally on beta-blockers at home . Unclear if her wheezing triggered with beta-edilma or
it is underlying COPD exacerbation. Will start on nebulizers but switch to Xopenex because of atrial fibrillation and tachycardia. Start on steroids. Will give low-dose Ativan to calm her nauseous. Continue to monitor on telemetry. Check a BMP.
Her weight has been higher than the previous weight.
DW family at bedside
[2023-09-26] MEDS: ATIVAN 0.5 MG IV (14:28)
[2023-09-26] MEDS: XOPENEX 1.25 MG INHALANT SOLUTION INH ×2 (14:32→19:28)
[2023-09-26] MEDS: DECADRON 4 MG IV ×2 (14:33→20:14)
[2023-09-26] MEDS: NSS (PRESERVATIVE FREE) 0.25 ML IV (14:33)
[2023-09-26 17:38] LABS: Glucose - Point of Care 132 mg/dl (70-99)
[2023-09-26] MEDS: NSS (PRESERVATIVE FREE) 0.125 ML IV (20:13)
[2023-09-26] MEDS: ATIVAN 0.25 MG IV (20:14)
[2023-09-27 00:12] LABS: Glucose - Point of Care 248 mg/dl (70-99)
[2023-09-27] MEDS: NOVOLOG FLEXPEN-LOW RESISTANCE 2 UNITS SC (00:26)
[2023-09-27] MEDS: DECADRON 4 MG IV ×3 (03:06→20:19)
[2023-09-27 03:30] VITALS: BP 125/75; BMI 19.9
[2023-09-27] MEDS: NOVOLOG FLEXPEN-LOW RESISTANCE SC ×2 (05:15→17:40)
[2023-09-27 06:07] LABS: Hematocrit 32.2 % (37.0-47.0); Hemoglobin 10.8 g/dL (12.0-16.0); Mean Corp Hgb Conc. 33.5 g/dL (33.0-37.0); Mean Corpuscular Hgb 30.3 pg (27.0-31.0); Mean Corpuscular Volume 90.2 fL (81.0-99.0); Platelet Count 274 10^3/uL (130-400); Red Blood Cell Count 3.57 10^6/uL (4.20-5.40); Red Cell Dist. Width 15.2 % (11.5-14.5); White Blood Cell Count 6.6 10^3/uL (4.8-10.8)
[2023-09-27 06:25] LABS: Blood Urea Nitrogen 19 mg/dl (7-17); Carbon Dioxide 27 mmol/L (22-30); Chloride 101 mmol/L (98-107); Estimated Creatinine Clearance 33 ml/min; Glucose 147 mg/dl (70-99); Potassium 3.7 mmol/L (3.5-5.1); Sodium 134 mmol/L (135-145); eGFR 49.86
[2023-09-27 06:42] VITALS: BMI 19.6
[2023-09-27] MEDS: XOPENEX 1.25 MG INHALANT SOLUTION INH ×3 (07:19→19:29)
[2023-09-27] MEDS: ADVAIR HFA 115/21 MCG INHALER 2 PUFF INH ×2 (07:19→19:30)
[2023-09-27] MEDS: SPIRIVA RESPIMAT 2.5 MCG 2 PUFF INH (07:19)
[2023-09-27 07:30] VITALS: BP 102/73
[2023-09-27] MEDS: NSS (PRESERVATIVE FREE) 0.125 ML IV (07:50)
[2023-09-27] MEDS: ATIVAN 0.25 MG IV (07:50)
[2023-09-27] MEDS: NSS (PRESERVATIVE FREE) 10 ML IV (07:50)
[2023-09-27] MEDS: ELIQUIS 2.5 MG PO ×2 (07:50→20:19)
[2023-09-27] MEDS: PROTONIX IV 40 MG IV (07:51)
[2023-09-27] MEDS: CARDIZEM CD 240 MG PO (07:57)
--- NOTE | 2023-09-27 10:47 | PN.CDI ---
CDI
- -
CDI:
Physician Documentation Request
Admit Date: 09/25/23 05:40
Dear Doctor Vamsi,
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
ED Physician Documentation: 'She is typically on oxygen.'
09/25 Surgery Consult: 'She has COPD and is on home O2 3L.'
09/26 Hospitalist PN: 'Chronic hypoxic respiratory insufficiency-patient on home O2-continue with 2 L of oxygen'
Selected Entries
09/25/23
02:20 09/26/23
09:49 09/26/23
14:39
Nasal Cannula flow liters per minute 3 2 3
09/26/23
19:24 09/26/23
23:05 09/27/23
03:30
Nasal Cannula flow liters per minute 5 3 5
Clarify which of the following accurately represents the patient's respiratory status:
Chronic hypoxic respiratory failure
Chronic hypoxic respiratory insufficiency
Other
Use of terms such as suspected, likely, concern for, or probable (associated with a specific diagnosis that is being evaluated, monitored, or treated as if it exists) are acceptable and can be coded in the inpatient setting, when documented at the
time of discharge.
Thank you,
Claudine Wilson RN, BSN
CDI Specialist
Available via Central text
Please use your independent medical judgment in providing your response.
[2023-09-27 11:33] VITALS: BP 142/100
[2023-09-27] MEDS: SPIRIVA RESPIMAT 2.5 MCG INH (12:23)
[2023-09-27 12:42] LABS: Glucose - Point of Care 154 mg/dl (70-99)
[2023-09-27] MEDS: NOVOLOG FLEXPEN-LOW RESISTANCE 1 UNITS SC (12:52)
--- NOTE | 2023-09-27 12:52 | W.PN.GI.CBS2 ---
Addendum entered and electronically signed by Danika Aden MD 09/27/23 16:19:
I saw and examined the patient.
The CAR DRIVER or PA's note was reviewed and I agree with the note.
Comment: Patient very anxious -triggering shortness of breath and has been very tearful.
Complaints of feeling somewhat bloated, able to tolerate full liquid diet without any nausea or vomiting.
Somewhat loose stool with residual oral contrast.
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
Currently on full liquid diet and tolerating it without any significant symptoms.
Reinforced to patient and daughter bedside that smaller meals, full liquid diet is going to help with both reflux symptoms and with gastric emptying
Ensure/boost as needed to keep up the weight
Continue Protonix 40 mg daily given severe acid reflux noted on imaging studies
Okay to take MiraLAX for constipation
Follow-up with Dr. Simon in 6 weeks. Sent a message to my office as well.
Will sign off, please call back if needed
Original Note:
Today's Communication / Plan
-
Ensure
Calorie counts
Daily weights
Assessment / Plan
-
1. Early satiety/weight loss: Symptoms consistent with delayed gastric emptying, with suggestion of SMA syndrome on CT scan with narrowed aortomesenteric angle and dilated stomach and proximal duodenum. There did seem to be some dilated small
loops of bowel distally on CT scan, though upper GI with small bowel follow-through again shows markedly delayed gastric emptying with dilated duodenum transitioning across the midline at the expected area of the SMA to decompressed for portion of
the duodenum, with some mildly delayed transit distally though no significant dilation. Again most of her symptoms are delayed gastric emptying and given now imaging both on CT scan and upper GI is consistent with SMA syndrome. This may be more
from dense atherosclerosis noted on CT scan.
Plan:
- small, frequent meals, would stick to a full liquid diet for now with dietary supplementation with Ensure.
-We discussed that she should be able to maintain her nutrition, hopefully to gain weight with grazing on a full liquid diet with supplementation, and if she were to gain some weight this could help. She would likely be a poor surgical candidate
for any vascular or GI surgical intervention right now.
-Ensure ordered for patient
-Discussed with IM Attending about anxiety
-Follow up appt made for Dr. Simon for 10/25/23 at 12:00.
Subjective
Subjective
Date of Service: September 27, 2023
Patient seen with at bedside. She is highly anxious. I did discuss with medicine attending. She denies any current abdominal pain. Did tolerate her breakfast. She is currently on a full liquid diet and awaiting lunch. Discussed at
length with patient and as far as continuing small but frequent meals/protein shakes, calorie counts, daily weights and follow-up in the office has been arranged with Dr. Simon for the patient.
Objective
Data Reviewed
Laboratory Data:
Laboratory Results
09/27/23 05:11
09/27/23 05:11
Laboratory Results
Total Bilirubin 0.7 mg/dl (0.2-1.3) 09/25/23 03:43
AST 27 U/L (14-36) 09/25/23 03:43
ALT 12 U/L (0-35) 09/25/23 03:43
Alkaline Phosphatase 97 U/L (38-126) 09/25/23 03:43
Lipase 34 U/L (23-300) 09/25/23 03:43
Vital Signs and I&O:
Vital Signs
Temp Pulse Resp BP Pulse Ox
97.6 F 95 20 142/100 99
09/27/23 11:33 09/27/23 12:44 09/27/23 12:44 09/27/23 11:33 09/27/23 11:36
I&O
09/26/23 09/27/23 09/28/23
06:59 06:59 06:59
Intake Total 1840 / 1840 560 / 560
Balance 1840 / 1840 560 / 560
Physical Exam
Physical Exam
HEENT: Anicteric
Cardiology: Normal Sinus Rhythm
Pulmonary: Clear
GI: Soft, Non Distended, Non Tender and Normal Bowel Sounds
Neuro: Other (highly anxious)
[2023-09-27] MEDS: PROTONIX 20 MG PO (12:55)
[2023-09-27] MEDS: ATIVAN 0.5 MG IV ×2 (13:14→21:26)
[2023-09-27] MEDS: NSS (PRESERVATIVE FREE) 0.25 ML IV (13:16)
--- NOTE | 2023-09-27 13:19 | CON.CAR ---
Addendum entered and electronically signed by Carlin Alegria MD 09/27/23 17:33:
83 yo female with permanent A fib on eliquis admitted with abdominal pain. We are consulted for A fib with RVR. Patient reports feeling anxious. Exam with irregular rhythm, no murmurs, trace edema. Tele: A fib ~100.
Continue diltiazem drip. Assess for PO in morning. Continue Toprol XL and eliquis.
Original Note:
Consultation
Consultation Request
Date/Time Consultation Requested: 09/27/23 11:40
Date/Time Consultation Performed: 09/27/23 13:15
Requesting Provider: Dr. Agustin
Performing Provider: CHAPIN Hart for Dr. Alegria
Reason for Consultation: Atrial fibrillation management
Medical History
-
Chief Complaint: Abdominal pain
History of Present Illness:
Shanna Mckeon is an 83 year old female (known to Dr. Annika Love, at [facility]) with permanent atrial fibrillation (on apixaban), prior CVA (while off apixaban for epistaxis), GERD, hypertension, dyslipidemia, anxiety, and RA on Humira presented to the
emergency department with abdominal pain. She endorses had nausea and vomiting. There is concern for SMA syndrome. Cardiology was consulted for atrial fibrillation with rapid ventricular response. She was given intravenous Lopressor the primary
service felt like it made her expiratory wheeze worse. She normally takes metoprolol succinate 50 mg every evening and diltiazem 240 mg every morning.
Past Medical History
Past Medical History: Arrhythmias (Permanent atrial fibrillation [on apixaban]), CVA, GERD, HTN, Hypercholesterolemia, Psychiatric (Anxiety) and Other
Past Surgical History: Appendectomy
Social History
Tobacco: Former Smoker
Alcohol: None
Drug: Marijuana
Personal:
Living: With Family
Employment: Retired
Family History
Family History: Reviewed & Not Pertinent
Allergies / Home Medications
Allergy/AdvReac Type Severity Reaction Status Date / Time
No Known Drug Allergies Allergy Unknown Verified 09/25/23 02:17
Medication Instructions Recorded Confirmed Type
acetaminophen 325 mg tablet 650 mg PO HSPRN PRN mild pain 10/19/22 09/27/23 History
albuterol sulfate 90 mcg/actuation 2 puff inhalation R Q6HPRN PRN SOB 10/19/22 09/27/23 History
aerosol inhaler (ProAir HFA)
apixaban 2.5 mg tablet 2.5 mg PO BID Blood clot 10/19/22 09/27/23 History
prevention/tx
buspirone 5 mg tablet 5 mg PO TID Mental Health/Anxiety 10/19/22 09/27/23 History
diltiazem HCl 240 mg 240 mg PO DAILY Arrhythmia 10/19/22 09/27/23 History
capsule,extended release 24 hr
fluticasone 250 mcg-salmeterol 50 1 inh inhalation R BID 10/19/22 09/27/23 History
mcg/dose blistr powdr for Lung/breathing issues
inhalation (Wixela Inhub)
polyethylene glycol 3350 17 gram 17 g PO QPM Constipation 10/19/22 09/27/23 History
oral powder packet (Miralax)
rabeprazole 20 mg tablet,delayed 20 mg PO DAILY Gastrointestinal 10/19/22 09/27/23 History
release (AcipHex) issue
simvastatin 20 mg tablet 20 mg PO QPM High cholesterol 10/19/22 09/27/23 History
trazodone 150 mg tablet 150 mg PO HS Sleep 10/19/22 09/27/23 History
adalimumab 40 mg/0.4 mL 40 mg SC Q2W 09/27/23 09/27/23 History
subcutaneous pen kit (Humira(CF)
Pen)
estradiol 0.01% (0.1 mg/gram) 1 appful vaginal .4-5 TIMES A WEEK 09/27/23 09/27/23 History
vaginal cream (Estrace)
furosemide 20 mg tablet 20 mg PO DAILY PRN swelling 09/27/23 09/27/23 History
metoprolol succinate 50 mg 50 mg PO HS 09/27/23 09/27/23 History
tablet,extended release 24 hr
ondansetron 4 mg disintegrating 4 mg PO Q8H PRN nausea 09/27/23 09/27/23 History
tablet
tiotropium bromide 18 mcg capsule 2 cap inhalation R DAILY 09/27/23 09/27/23 History
with inhalation device (Spiriva
with HandiHaler)
Review of Systems
-
History Source: Patient
All other systems: Negative unless noted
Constitutional: Fatigue
EENT: No Symptoms
Respiratory: Trouble Breathing
Cardiac: No Symptoms
Musculoskeletal: Edema
Physical Exam
Vital Signs
Temp Pulse Resp BP Pulse Ox
97.6 F 95 20 142/100 99
09/27/23 11:33 09/27/23 12:44 09/27/23 12:44 09/27/23 11:33 09/27/23 11:36
Lab Results
09/27/23 05:11
09/27/23 05:11
Physical Exam
General: Well Developed, Well Nourished, No Apparent Distress and Comfortable
HEENT: Normocephalic, Anicteric and Moist Mucous Membranes
Respiratory: Wheezes (expiratory)
Cardiac: S1/S2, Irregular Rhythm and Peripheral Edema (Lower extremity edema)
Breast: Deferred by me
GI: Soft, Non Tender, Non Distended and Normal Bowel Sounds
Rectal: Deferred by Provider
Genito-urinary: No Costovertebral Tender
Musculoskeletal: No Clubbing, No Cyanosis and Edema (+1 [non pitting])
Neuro: AO x 3
Hematologic/Lymphatic: No Lymphadenopathy
Psych: Calm
Impression / Plan
-
Shortness of breath, multifactorial
-Improve HR and control anxiety
-Furosemide 20mg IV x 1 trial (sm pleural effusions & +1 LE edema)
Abdominal pain, suspected SMA, per GI
Atrial fibrillation, permanent
-Rates elevated, start diltiazem gtt
-Wheeze after intravenous Lopressor
-Oral Anticoagulation: Apixaban 2.5mg BID (weight < 60kg, age > 80)
-[id number]: Score at least 5 (age 75 or more, prior Stroke/TIA, female gender)
UTI, positive for Klebsiella
Anxiety, significant
COPD, on continuous O2 at 3L at home
Prior CVA, while off apixaban for epistaxis
HLD, on simvastatin
RA, on Humira
Data Reviewed
-
EKG: Report Reviewed by me (Atrial fibrillation with RVR, rate 129)
Radiology: Report Reviewed by me (CXR: Small bilateral pleural effusions, right greater than left. Cardiomegaly with no evidence for pulmonary edema.) and Other (UGI & Bowel XR: Severe GERD. Relative collapse of the fourth portion of the duodenum
and proximal jejunum suggesting superior mesenteric artery (SMA) syndrome.)
Labs: Labs Reviewed by me
Old Records: Reviewed
--- NOTE | 2023-09-27 13:27 | W.PN.HOSP.TC ---
Today's Communication/Plan
-
Increase Ativan dose.
Taper steroids
Consult cardiology
Assessment / Plan
Assessment / Plan
Nausea vomiting with worsening reflux.
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 Upper GI series with small bowel follow-through also raises concern about duodenal compression and SMA syndrome.
She is delayed gastric emptying unclear if it is because of external compression of duodenum or motility problem.
Severe gastric reflux noted on upper GI series
GI and surgery following -currently on full liquid diet and diet supplements
Continue with PPI IV
Rapid atrial fibrillation-hemodynamically stable. Patient known to have permanent atrial fibrillation. She on beta-edilma and Cardizem . She is without chest pain or palpitation. Remains tachy ;some of it is exacerbated by her anxiety.
Consult cards; tx anxiety
Shortness of breath-patient complains of being short of breath-control atrial fibrillation. chest x-ray with mild small bilateral pleural effusions. No evidence of pulmonary edema. Suspect multifactorial-atrial fibrillation, COPD flare, anxiety
.
COPD-with mild flare yesterday. Currently not bronchospastic. Continue with Xopenex nebulizers. Taper steroids today.
Chronic hypoxic respiratory insufficiency-patient on home O2-continue with 2 L of oxygen
History of CVA- Last episode 10/2022 -felt thromboembolic- on Eliquis [last taken on Saturday evening]. Discussed with GI and surgery-no plans for interventions. Resume Eliquis starting today.
Essential HTN - cw home meds and follow
RA on Humira
Anxiety disorder-patient on BuSpar along with Xanax at home. She is becoming more anxious around her diagnosis. Continue with Ativan and if remains anxious would consult psychiatry.
Full code
Anticipated Discharge: > 48 hours
Subjective/Interval History
-
Date of Service: September 27, 2023
Patient states she is feeling anxious and it has been ongoing for some time, in fact her procurement inspector increased her anxiety medication to 3 times a day before coming in. She has not had a chance to fill out.
She states that she starts to become anxious and that makes her breathing shot and then she starts to cry. She had good relief with Ativan given other times yesterday.
No palpitations or chest pain.
Tolerating liquid diet.
Objective Data
-
Labs:
Laboratory Results
09/27/23
05:11
WBC 6.6
Hgb 10.8 L
Hct 32.2 L
Plt Count 274
Sodium 134 L
Potassium 3.7
Chloride 101
Carbon Dioxide 27
BUN 19 H
Creatinine 1.1 H
Glucose 147 H
Calcium 8.0 L
Vital Signs:
Vital Signs
Temp Pulse Resp BP Pulse Ox
97.6 F 95 20 142/100 99
09/27/23 11:33 09/27/23 12:44 09/27/23 12:44 09/27/23 11:33 09/27/23 11:36
I&O
09/26/23 09/27/23 09/28/23
06:59 06:59 06:59
Intake Total 1839 560 / 560
Balance 1839 560 / 560
Review of Systems
-
Constitutional: Denies Fever
EENT: Denies Sore Throat
Respiratory: Reports Trouble Breathing
Abdomen/GI: Denies Nausea or Vomiting
Neuro: Denies Dizzy
Physical Exam
-
General: No Apparent Distress and Other (starts to be come anxious ,her breathing increased and she started crying ); Negative Comfortable
HEENT: Moist Mucous Membranes
Respiratory: Negative Wheezes (today), Non Labored Respirations or Accessory Resp Muscle Use
Cardiac: Irregular Rhythm and Tachycardic; Negative S1/S2
GI: Soft and Nontender
Neuro: AO x 3; Negative No Motor Deficits or Tremors
Psych: Anxious; Negative Confused
Data Reviewed
-
Labs: Labs Reviewed by
[2023-09-27] MEDS: CARDIZEM 125 IV (14:22)
[2023-09-27 14:53] VITALS: BP 166/82
--- NOTE | 2023-09-27 14:54 | PTCARENOTE ---
Pt expressing anxiety. Tremulous and tearful. Tachypnea and expresses shortness of breath during these episodes, but SaO2 remains 99% on 3L. Episodes coincide with increase in HR to 140s - 160s. A Fib on cardiac monitor technician with HR 100s - 120s at
rest. PRN Ativan administered and pt expresses relief but heart rate remained elevated. Dr Agustin notified. New order for Ativan increase, Cardizem gtt @ 5mg/hr, and Augmentin PO for urine (+) with Klebsiella. Cardiology consult placed, new order to
increase Cardizem gtt to 10 mg/hr and Lasix 20mg IV X1 now.
[2023-09-27] MEDS: LASIX 20 MG IV (15:08)
--- NOTE | 2023-09-27 15:39 | CM ---
Chart reviewed
Tapering steroids
Cards consult
CM cont to follow for d/c needs
Anticipate home needs tbd
[2023-09-27 17:39] LABS: Glucose - Point of Care 137 mg/dl (70-99)
[2023-09-27] MEDS: MIRALAX 17 GRAMS PO (17:40)
[2023-09-27] MEDS: LIPITOR 10 MG PO (17:40)
[2023-09-27 19:00] VITALS: BP 143/66
[2023-09-27] MEDS: AUGMENTIN 875 MG/125 MG 1 TABLET PO (20:19)
[2023-09-27] MEDS: GAVISCON LIQUID 30 ML PO (20:31)
[2023-09-27 21:23] LABS: Glucose - Point of Care 167 mg/dl (70-99)
[2023-09-27] MEDS: TOPROL XL 50 MG PO (21:23)
[2023-09-27] MEDS: DESYREL PO (22:00)
[2023-09-27 23:10] VITALS: BP 135/67
[2023-09-28] MEDS: CARDIZEM 125 IV (02:27)
[2023-09-28 03:00] VITALS: BP 129/63
[2023-09-28 06:00] VITALS: BMI 19.4
[2023-09-28 07:38] VITALS: BP 121/60
[2023-09-28] MEDS: XOPENEX 1.25 MG INHALANT SOLUTION INH ×3 (07:38→20:26)
[2023-09-28] MEDS: ADVAIR HFA 115/21 MCG INHALER 2 PUFF INH ×2 (07:39→20:27)
[2023-09-28] MEDS: SPIRIVA RESPIMAT 2.5 MCG 2 PUFF INH (07:40)
[2023-09-28 08:03] LABS: Glucose - Point of Care 117 mg/dl (70-99)
[2023-09-28] MEDS: ELIQUIS 2.5 MG PO ×2 (08:03→21:08)
[2023-09-28] MEDS: NSS (PRESERVATIVE FREE) 10 ML IV (08:03)
[2023-09-28] MEDS: DECADRON 4 MG IV (08:03)
[2023-09-28] MEDS: PROTONIX 20 MG PO (08:03)
[2023-09-28] MEDS: AUGMENTIN 875 MG/125 MG 1 TABLET PO ×2 (08:03→21:07)
[2023-09-28] MEDS: PROTONIX IV 40 MG IV (08:04)
[2023-09-28] MEDS: NOVOLOG FLEXPEN-LOW RESISTANCE SC ×3 (08:04→18:02)
[2023-09-28 11:05] VITALS: BP 127/56
--- NOTE | 2023-09-28 11:25 | W.PN.CD ---
Today's Communication / Plan
-
transition diltiazem drip to diltiazem 240mg daily
Impression / Plan
-
Abdominal pain, suspected SMA, per GI
Atrial fibrillation, permanent, with RVR on admission in setting of missed doses AV broderick agents
-Toprol XL has been resumed
-transition diltiazem drip to diltiazem 240mg daily
-Oral Anticoagulation: Apixaban 2.5mg BID (weight < 60kg, age > 80)
-[id number]: Score at least 5 (age 75 or more, prior Stroke/TIA, female gender)
Anxiety, significant
COPD, on continuous O2 at 3L at home
Prior CVA, while off apixaban for epistaxis
HLD, on simvastatin
RA, on Humira
Physical Exam
Vital Signs/Labs
Vital Signs
Temp Pulse Resp BP Pulse Ox
97.6 F 70 24 127/56 98
09/28/23 11:05 09/28/23 11:05 09/28/23 11:05 09/28/23 11:05 09/28/23 11:05
09/27/23 09/28/23 09/29/23
06:59 06:59 06:59
Actual Weight 53.524 kg 52.844 kg
09/27/23 05:11
09/27/23 05:11
Physical Exam
Constitutional: No acute distress
EENT: Moist mucous membranes
Cardiovascular: Pedal edema is absent, JVD pressure is normal, Systolic murmur absent and Rhythm/rate is irregular
Respiratory: Respiratory effort normal and Lungs clear to auscul.
Neuro/Psych: AO x 3
Data Reviewed
-
Date of Service: September 28, 2023
EKG: Other (Tele: A fib 60-100)
[2023-09-28 12:28] LABS: Glucose - Point of Care 126 mg/dl (70-99)
[2023-09-28] MEDS: CARDIZEM CD 240 MG PO (12:45)
[2023-09-28] MEDS: ATIVAN 0.5 MG IV ×2 (12:50→21:11)
--- NOTE | 2023-09-28 15:00 | W.PN.HOSP.TC ---
Today's Communication/Plan
-
Marinol
Consult psychiatry
Taper steroids
Assessment / Plan
Assessment / Plan
Nausea vomiting with worsening reflux.
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 Upper GI series with small bowel follow-through also raises concern about duodenal compression and SMA syndrome.
She is delayed gastric emptying unclear if it is because of external compression of duodenum or motility problem.
Severe gastric reflux noted on upper GI series
GI and surgery following -currently on full liquid diet and diet supplements
Continue with PPI IV
Rapid atrial fibrillation-hemodynamically stable. Improved heart rate patient known to have permanent atrial fibrillation. She on beta-edilma and Cardizem . Cardiology following
Shortness of breath-patient complains of being short of breath-control atrial fibrillation. chest x-ray with mild small bilateral pleural effusions. No evidence of pulmonary edema. Suspect multifactorial-atrial fibrillation, COPD flare, anxiety
.
COPD-with mild flare y. Currently not bronchospastic. Continue with Xopenex nebulizers. Wean steroids further-changed to oral prednisone
Chronic hypoxic respiratory insufficiency-patient on home O2-continue with 3 L of oxygen which is her home O2 FiO2
History of CVA- Last episode 10/2022 -felt thromboembolic- on Eliquis [last taken on Saturday evening]. Discussed with GI and surgery-no plans for interventions. Resume Eliquis starting today.
Essential HTN - cw home meds and follow
RA on Humira
Anxiety disorder-patient on BuSpar along with Xanax at home. She is becoming more anxious around her diagnosis. Continue with Ativan . consult psychiatry.
Full code
Discussed with granddaughter who is a trauma surgeon at bedside today. She wants to explore the option of IR directed GJ tube insertion if not done short-term TPN for weight gain to help with her SMA syndrome. Will discuss with GI and surgery.
They also want to try Marinol for appetitie.
Anticipated Discharge: > 48 hours
Subjective/Interval History
-
Date of Service: September 28, 2023
Not much appetite on liquid diet. No nausea vomiting.
Anxiety is still not controlled.
Objective Data
-
Vital Signs:
Vital Signs
Temp Pulse Resp BP Pulse Ox
97.6 F 70 24 127/56 98
09/28/23 11:05 09/28/23 11:05 09/28/23 11:05 09/28/23 11:05 09/28/23 11:05
I&O
09/27/23 09/28/23 09/29/23
06:59 06:59 06:59
Intake Total 560 / 560 420 / 420
Balance 560 / 560 420 / 420
Review of Systems
-
Constitutional: Denies Fever
EENT: Denies Sore Throat
Respiratory: Denies Cough or Trouble Breathing
Cardiac: Denies Chest Pain or Palpitations
Abdomen/GI: Denies Abdominal Pain
Neuro: Denies Dizzy
Physical Exam
-
General: No Apparent Distress
HEENT: Moist Mucous Membranes
Respiratory: Crackles (Right more than left base) and Non Labored Respirations; Negative Wheezes or Accessory Resp Muscle Use
Cardiac: S1/S2 and Irregular Rhythm; Negative Tachycardic
GI: Soft and Nontender
Musculoskeletal: Negative No Edema
Neuro: AO x 3
[2023-09-28 15:05] VITALS: BP 127/69
[2023-09-28 15:22] LABS: Glucose - Point of Care 146 mg/dl (70-99)
[2023-09-28] MEDS: MARINOL 2.5 MG PO ×2 (15:33→21:08)
[2023-09-28] MEDS: MIRALAX PO (18:11)
[2023-09-28 19:00] VITALS: BP 162/69
--- NOTE | 2023-09-28 19:33 | PTCARENOTE ---
during report from previous shift, pt was heard calling out for help, found sitting on floor on her buttocks back against wall. Pt reported 'she didn't want to bother anyone' and attempted to ambulate by herself and reported 'I felt light headed and
fell back'. She denied hitting her head but after returning to bed she reports she may have. Pt experienced 3 small skin on her thoracic spine and 1 on her coccyx. Area cleansed and foam placed, VSS stable and HP notified. Pt placed on bed alarm and
falls risk updated, call meza within reach.
--- NOTE | 2023-09-28 20:14 | W.PN.UPDATE ---
Update Note
Progress Note Update
Reported by nursing patient fell while attempting to use her commode at the bedside. Apparently fell backwards onto the commode and scraped her back and coccyx with eventual skin tears. Patient with new addition of Hair and unsure if she has
head trauma ( she c/o her 'bottom' hurting. will check CT of head.
[2023-09-28] MEDS: TOPROL XL 50 MG PO (21:08)
[2023-09-28] MEDS: TYLENOL 650 MG PO (21:09)
[2023-09-28] MEDS: LIPITOR PO (21:29)
[2023-09-28] MEDS: DESYREL PO (21:30)
[2023-09-28 21:42] LABS: Glucose - Point of Care 157 mg/dl (70-99)
[2023-09-28 23:00] VITALS: BP 135/59
[2023-09-29 03:00] VITALS: BP 120/78
[2023-09-29 06:26] LABS: Hematocrit 29.9 % (37.0-47.0); Hemoglobin 10.1 g/dL (12.0-16.0); Mean Corp Hgb Conc. 33.8 g/dL (33.0-37.0); Mean Corpuscular Hgb 30.8 pg (27.0-31.0); Mean Corpuscular Volume 91.2 fL (81.0-99.0); Mean Platelet Volume 10.5 fL (7.4-10.4); Platelet Count 297 10^3/uL (130-400); Red Blood Cell Count 3.28 10^6/uL (4.20-5.40); White Blood Cell Count 19.3 10^3/uL (4.8-10.8)
[2023-09-29 06:43] LABS: Blood Urea Nitrogen 45 mg/dl (7-17); Calcium 8.8 mg/dl (8.4-10.2); Carbon Dioxide 28 mmol/L (22-30); Chloride 102 mmol/L (98-107); Estimated Creatinine Clearance 23 ml/min; Glucose 109 mg/dl (70-99); Potassium 5.1 mmol/L (3.5-5.1); Sodium 131 mmol/L (135-145)
[2023-09-29 07:26] VITALS: BP 138/73
[2023-09-29] MEDS: NOVOLOG FLEXPEN-LOW RESISTANCE SC ×2 (07:38→12:58)
[2023-09-29] MEDS: SPIRIVA RESPIMAT 2.5 MCG 2 PUFF INH (07:52)
[2023-09-29] MEDS: XOPENEX 1.25 MG INHALANT SOLUTION INH ×3 (07:52→20:58)
[2023-09-29] MEDS: ADVAIR HFA 115/21 MCG INHALER 2 PUFF INH ×2 (07:52→20:58)
[2023-09-29 08:36] LABS: Glucose - Point of Care 113 mg/dl (70-99)
[2023-09-29] MEDS: AUGMENTIN 875 MG/125 MG 1 TABLET PO ×2 (08:37→20:21)
[2023-09-29] MEDS: PROTONIX IV 40 MG IV (08:38)
[2023-09-29] MEDS: NSS (PRESERVATIVE FREE) 10 ML IV (08:39)
[2023-09-29] MEDS: DELTASONE 30 MG PO (08:40)
[2023-09-29] MEDS: TYLENOL 650 MG PO (08:40)
[2023-09-29] MEDS: ELIQUIS 2.5 MG PO ×2 (08:41→20:22)
[2023-09-29] MEDS: MARINOL 2.5 MG PO ×3 (08:41→22:18)
[2023-09-29] MEDS: CARDIZEM CD 240 MG PO (08:41)
--- NOTE | 2023-09-29 10:33 | W.PN.GI.CBS2 ---
Today's Communication / Plan
-
Plan:
Suspicion for SMA syndrome
Currently on full liquid diet, still struggling and not able to complete her tray.
Discussed with patient's family including patient's granddaughter Mercedes who is a trauma surgeon, patient's son, GJ tube is an option but patient's pulmonary status should be optimized prior to putting GJ tube. G-tube can be done endoscopically and
J-tube through IR. Patient's granddaughter Mercedeswas inquiring about IR placed GJ tube which is not planned at [facility] but we could reach out to IR tomorrow to see if there is a place around that would do the GJ tube with down and back
transport.
Patient is on Eliquis, that needs to be held if patient is getting endoscopy GJ tube placement and needs bridging.
Reviewed surgical evaluation regarding J-tube.
For now continue- small, frequent meals, would stick to a full liquid diet for now with dietary supplementation with Ensure.
Discussed with Dr. Agustin again today and updated him.
-Follow up appt made for Dr. Simon for 10/25/23 at 12:00.
Assessment / Plan
-
1. Early satiety/weight loss: Symptoms consistent with delayed gastric emptying, with suggestion of SMA syndrome on CT scan with narrowed aortomesenteric angle and dilated stomach and proximal duodenum. There did seem to be some dilated small
loops of bowel distally on CT scan, though upper GI with small bowel follow-through again shows markedly delayed gastric emptying with dilated duodenum transitioning across the midline at the expected area of the SMA to decompressed for portion of
the duodenum, with some mildly delayed transit distally though no significant dilation. Again most of her symptoms are delayed gastric emptying and given now imaging both on CT scan and upper GI is consistent with SMA syndrome. This may be more
from dense atherosclerosis noted on CT scan.
Plan:
Suspicion for SMA syndrome
Currently on full liquid diet, still struggling and not able to complete her tray.
Discussed with patient's family including patient's granddaughter Mercedes who is a trauma surgeon, patient's son, GJ tube is an option but patient's pulmonary status should be optimized prior to putting GJ tube. G-tube can be done endoscopically and
J-tube through IR. Patient's granddaughter Martha inquiring about IR placed GJ tube which is not planned at [facility] but we could reach out to IR tomorrow to see if there is a place around that would do the GJ tube with down and back
transport.
Patient is on Eliquis, that needs to be held if patient is getting endoscopy GJ tube placement and needs bridging.
Reviewed surgical evaluation regarding J-tube.
For now continue- small, frequent meals, would stick to a full liquid diet for now with dietary supplementation with Ensure.
Discussed with Dr. Agustin again today and updated him.
-Follow up appt made for Dr. Simon for 10/25/23 at 12:00.
Subjective
Subjective
Date of Service: September 29, 2023
Patient had a fall last night, head CT negative. Had loose stool overnight. Currently on full liquid diet. No cough without fever
Objective
Data Reviewed
Laboratory Data:
Laboratory Results
09/29/23 05:10
09/29/23 05:10
Laboratory Results
Total Bilirubin 0.7 mg/dl (0.2-1.3) 09/25/23 03:43
AST 27 U/L (14-36) 09/25/23 03:43
ALT 12 U/L (0-35) 09/25/23 03:43
Alkaline Phosphatase 97 U/L (38-126) 09/25/23 03:43
Lipase 34 U/L (23-300) 09/25/23 03:43
Vital Signs and I&O:
Vital Signs
Temp Pulse Resp BP Pulse Ox
97.5 F 65 14 138/73 99
09/29/23 07:26 09/29/23 07:55 09/29/23 07:55 09/29/23 08:41 09/29/23 07:55
I&O
09/28/23 09/29/23 09/30/23
06:59 06:59 06:59
Intake Total 420 / 420 240 / 240
Balance 420 / 420 240 / 240
Physical Exam
Physical Exam
GI: Soft and Non Distended
--- NOTE | 2023-09-29 11:26 | W.PN.CD ---
Today's Communication / Plan
-
back on PO regimen for A fib with good rate control
cont eliquis
please call us back with additional questions
Impression / Plan
-
Abdominal pain, suspected SMA, per GI
Atrial fibrillation, permanent, with RVR on admission in setting of missed doses AV broderick agents
-s/p diltiazem drip
-back on Toprol XL 50mg qHS, and diltiazem 240mg daily: rate control looks good
-Oral Anticoagulation: Apixaban 2.5mg BID (weight < 60kg, age > 80)
-[id number]: Score at least 5 (age 75 or more, prior Stroke/TIA, female gender)
Anxiety, significant
COPD, on continuous O2 at 3L at home
Prior CVA, while off apixaban for epistaxis
HLD, on simvastatin
RA, on Humira
Physical Exam
Vital Signs/Labs
Vital Signs
Temp Pulse Resp BP Pulse Ox
97.5 F 65 14 138/73 99
09/29/23 07:26 09/29/23 07:55 09/29/23 07:55 09/29/23 08:41 09/29/23 07:55
09/28/23 09/29/23 09/30/23
06:59 06:59 06:59
Actual Weight 52.844 kg 54.573 kg
09/29/23 05:10
09/29/23 05:10
Physical Exam
Constitutional: No acute distress and Comfortable
EENT: Moist mucous membranes
Cardiovascular: Pedal edema is absent, JVD pressure is normal, Systolic murmur absent and Rhythm/rate is irregular
Respiratory: Respiratory effort normal, Lungs clear to auscul. and Wheeze Absent
GI: Soft and Distention absent
Neuro/Psych: AO x 3
Data Reviewed
-
Date of Service: September 29, 2023
EKG: Other (Tele: A fib 60s)
[2023-09-29 11:33] LABS: Glucose - Point of Care 145 mg/dl (70-99)
[2023-09-29 12:13] VITALS: BP 142/67
[2023-09-29] MEDS: D5/0.45%NACL 1000 IV (13:12)
--- NOTE | 2023-09-29 13:47 | CON.PUL ---
Consultation
Consultation Request
Date/Time Consultation Requested: 09/29/2023-1:45 PM
Date/Time Consultation Performed: 09/29/2023-2 PM
Requesting Provider: Dr. Agustin
Performing Provider: Dr. Davidson
Reason for Consultation: COPD/preoperative clearance
Medical History
-
Chief Complaint: Shortness of breath
History of Present Illness:
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
COPD management 09/29/2023. She states she has significant shortness of breath with minimal exertion. She states that she can barely climb 1 flight of stairs. She probably cannot blow out a candle 12 inches away. She usually sees Dr. Yarbrough at
[place]. She has been hospitalized for COPD exacerbations in the past but not at [place]. She denies any current chest pain but has significant shortness of breath. She has some wheezing. She does not have chest congestion, productive cough,
pleurisy, abdominal pain, nausea, leg swelling or weakness.
Past Medical History
Past Medical History: None (COPD-3 L oxygen. Anxiety. Atrial fibrillation. 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 Chronic anticoagulation. Hypertension. Hyperlipidemia. Recurrent UTIs. RA on Humira. Anxiety. GERD. Appendectomy.)
Social History
Tobacco: Former Smoker
Alcohol: None
Drug: Marijuana
Personal:
Living: With Family
Occupational Exposures: No known asbestos exposure
Environmental Exposures: No known tuberculosis exposure
Family History
Family History: Reviewed & Not Pertinent
Allergies / Home Medications
Allergies
Allergy/AdvReac Type Severity Reaction Status Date / Time
No Known Drug Allergies Allergy Unknown Verified 09/25/23 02:17
Home Medications
Medication Instructions Recorded Confirmed Last Taken Type
acetaminophen 325 mg tablet 650 mg PO HSPRN PRN mild pain 10/19/22 09/27/23 Unknown History
albuterol sulfate 90 mcg/actuation 2 puff inhalation R Q6HPRN PRN SOB 10/19/22 09/27/23 Unknown History
aerosol inhaler (ProAir HFA)
apixaban 2.5 mg tablet 2.5 mg PO BID Blood clot 10/19/22 09/27/23 5 Days Ago History
prevention/tx ~10/14/22
buspirone 5 mg tablet 5 mg PO TID Mental Health/Anxiety 10/19/22 09/27/23 Unknown History
diltiazem HCl 240 mg 240 mg PO DAILY Arrhythmia 10/19/22 09/27/23 Unknown History
capsule,extended release 24 hr
fluticasone 250 mcg-salmeterol 50 1 inh inhalation R BID 10/19/22 09/27/23 Unknown History
mcg/dose blistr powdr for Lung/breathing issues
inhalation (Wixela Inhub)
polyethylene glycol 3350 17 gram 17 g PO QPM Constipation 10/19/22 09/27/23 Unknown History
oral powder packet (Miralax)
rabeprazole 20 mg tablet,delayed 20 mg PO DAILY Gastrointestinal 10/19/22 09/27/23 Unknown History
release (AcipHex) issue
simvastatin 20 mg tablet 20 mg PO QPM High cholesterol 10/19/22 09/27/23 Unknown History
trazodone 150 mg tablet 150 mg PO HS Sleep 10/19/22 09/27/23 Unknown History
adalimumab 40 mg/0.4 mL 40 mg SC Q2W 09/27/23 09/27/23 Unknown History
subcutaneous pen kit (Humira(CF)
Pen)
estradiol 0.01% (0.1 mg/gram) 1 appful vaginal .4-5 TIMES A WEEK 09/27/23 09/27/23 Unknown History
vaginal cream (Estrace)
furosemide 20 mg tablet 20 mg PO DAILY PRN swelling 09/27/23 09/27/23 Unknown History
metoprolol succinate 50 mg 50 mg PO HS 09/27/23 09/27/23 Unknown History
tablet,extended release 24 hr
ondansetron 4 mg disintegrating 4 mg PO Q8H PRN nausea 09/27/23 09/27/23 Unknown History
tablet
tiotropium bromide 18 mcg capsule 2 cap inhalation R DAILY 09/27/23 09/27/23 Unknown History
with inhalation device (Spiriva
with HandiHaler)
Review of Systems
-
Unable to Obtain full review of systems at this time due to: Other (Per HPI)
Vitals / Labs / Diagnostic Testing
Vital Signs
Temp Pulse Resp BP Pulse Ox
97.7 F 72 18 142/67 98
09/29/23 12:13 09/29/23 12:13 09/29/23 12:13 09/29/23 12:13 09/29/23 12:13
Lab Data
09/29/23 05:10
09/29/23 05:10
Microbiology
09/25/23 05:02 Urine Urine Culture - Final
Klebsiella pneumoniae
Diagnostic Testing:
Physical Exam
-
Exam:
Well-nourished and well-developed in no apparent distress
HEENT-atraumatic, normocephalic
Neck-supple, no JVD, no bruit
Heart-regular rate and rhythm-no murmurs, rubs or gallops
Chest with diminished breath sounds, prolonged expiratory time and expiratory forced wheezes and no crackles
Abdomen-soft, nontender, nondistended, no hepatosplenomegaly
Extremities-no cyanosis, clubbing, no lower extremity edema
Integument-intact, no rashes, lesions or ecchymosis
Neurology-alert and oriented, nonfocal motor and sensory exam
Assessment
-
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
COPD management 09/29/2023.
Assessment
COPD-suspect Gold stage IV with mild acute exacerbation
Nausea/vomiting/reflux and gastroparesis suspected
Rapid atrial fibrillation
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
Leukocytosis-WBC 19.3
Rpltnx-bdcbxfhkkv-xtaggfuyuu 10.1
Mild hyponatremia-serum sodium 131
CRISTÓBAL-serum creatinine increased from 1.1 up to 1.6
Conditions present prior to admission:
COPD-3 L oxygen-followed by Dr. Wick, maintained on Advair, Spiriva, and albuterol or nebulizers as needed
Anxiety.
Atrial fibrillation.
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
Chronic anticoagulation.
Hypertension.
Hyperlipidemia.
Recurrent UTIs.
RA on Humira.
Anxiety.
GERD.
Appendectomy.
Plan
Respiratory status at best is tenuous with underlying advanced 'serious' suspected Gold stage IV COPD-oxygen dependent-see follow-up recommendations below
Supplemental oxygen as needed-Home oxygen is 3 L [id number]
Advair and Spiriva continue
Xopenex nebulizers 3 times daily
Prednisone 30 mg daily-no change
Mucolytic's as needed
Incentive spirometry and Acapella if needed
Aspiration precautions
GI evaluation noted-ideally patient needs GJ tube for SMA syndrome
Patient's car wash manager Dr. Salinas reportedly would not perform endoscopy due to high risk because of lung condition
Our car wash manager could place gastrostomy tube and interventional radiology the jejunostomy tube and GI will look to see if there is anyone else local we can transfer to interventional radiology [place] that could do GJ at the same time to avoid
endoscopy
Hopefully with prednisone, nebulizers her respiratory status improved slightly and if endoscopy is needed I told patient and family members there is a moderate risk for perioperative pulmonary complications including ventilator dependence
Patient saw her sister on a ventilator and how uncomfortable she was and patient would not like to be on a ventilator [id number] if complication occurred to be short-term ventilator such as 2-3 days with subsequent removal and allowing her to
pass if she could not come off in a reasonable amount of time-specifically 2-3 days-family members there during this conversation
Check bedside spirometry-suspect severe COPD
Obtain Dr. Yarbrough pulmonary notes if possible
Cardiology following-correspondence reviewed-signing off 09/29/2023
Atrial fibrillation rate control
Diuresis as tolerated-serum creatinine has increased
Monitor renal function, electrolytes, intake/output, lower extremity edema and weight
Replace electrolytes as needed
Obtain echocardiogram
Cultures reviewed
Augmentin continues
Follow hemoglobin
Transfuse if needed
Monitor blood sugar
Insulin supplementation as needed
Monitor renal function
Consider nephrology evaluation if renal function worsens
DVT prophylaxis-on Eliquis
Nutrition-being addressed by gastroenterology
Early mobilization/physical therapy
Outpatient pulmonary [id number]. Ward at [place]
Diagnostic data:
Chest x-ray 10/19/2022-NAD
Chest x-ray 09/26/2023-small bilateral pleural effusions right greater than left
CT head 09/28/2023-no acute intracranial abnormalities
Brain MRI 11/08-embolic stroke left middle cerebral artery
Data Reviewed
-
EKG: Report reviewed by me
Radiology: Image personally visualized and interpreted and Report reviewed by me
Medical Tests (Nuc Med, Echo etc): Report reviewed by me
Labs: Labs reviewed by me
Old Records: Reviewed
Total Time Spent with Patient (in minutes): 45
--- NOTE | 2023-09-29 14:03 | W.PN.HOSP.TC ---
Today's Communication/Plan
-
see plan above
Assessment / Plan
Assessment / Plan
Nausea vomiting with worsening reflux.
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 Upper GI series with small bowel follow-through also raises concern about duodenal compression and SMA syndrome.
She is delayed gastric emptying unclear if it is because of external compression of duodenum or motility problem.
Severe gastric reflux noted on upper GI series
GI and surgery following -currently on full liquid diet and diet supplements
Continue with PPI IV
Ongoing evaluation for GJ tube insertion for nutrition.
Discussed with surgery and GI today. GI wants pulmonary risk eval prior to doing any endo evals or G tube
Rapid atrial fibrillation-hemodynamically stable. Improved heart rate patient known to have permanent atrial fibrillation. She on beta-edilma and Cardizem . Cardiology following
Shortness of breath-Improved today. chest x-ray with mild small bilateral pleural effusions. No evidence of pulmonary edema. Suspect multifactorial-atrial fibrillation, COPD flare, anxiety .
COPD-with mild flare . Currently not bronchospastic. Continue with Xopenex nebulizers. Wean steroids further-changed to oral prednisone 09/28
Chronic hypoxic respiratory insufficiency-patient on home O2-continue with 3 L of oxygen which is her home O2 FiO2
Leukocytosis noted-patient clinically feels better from a breathing. She had diarrheal stools yesterday. So far today she has 1 bowel movement. She is drinking a lot of prune juice which I asked her to hold. Hold MiraLAX
Suspect leukocytosis may be related to steroids. She is afebrile. Nontoxic looking. Continue to follow.
CRISTÓBAL-jump in creatinine noted. No oral intake chart available. Unclear intake. Check bladder scan. Start on IV fluids and closely follow.
History of CVA- Last episode 10/2022 -felt thromboembolic- on Eliquis [last taken on Saturday evening]. Discussed with GI and surgery-no plans for interventions. Resumed Eliquis .
Essential HTN - cw home meds and follow
RA on Humira
Anxiety disorder-patient on BuSpar along with Xanax at home. She is becoming more anxious around her diagnosis. Continue with Ativan . consult psychiatry.
Full code
Discussed with granddaughter 09/28 who is a trauma surgeon at bedside today. She wants to explore the option of IR directed GJ tube insertion if not done short-term TPN for weight gain to help with her SMA syndrome. Will discuss with GI and
surgery. They also want to try Marinol for appetitie.
DW and daughter at bedside today and update clinical and plan
Anticipated Discharge: > 48 hours
Subjective/Interval History
-
Date of Service: September 29, 2023
Patient is feeling bit better from a breathing standpoint. Also she is breathing feeling better from anxiety standpoint.
Still with poor appetite. No nausea or vomiting. She is on full liquid diet.
Objective Data
-
Labs:
Laboratory Results
09/29/23
05:10
WBC 19.3 H
Hgb 10.1 L
Hct 29.9 L
Plt Count 297
Sodium 131 L
Potassium 5.1 D
Chloride 102
Carbon Dioxide 28
BUN 45 H
Creatinine 1.6 H
Glucose 109 H
Calcium 8.8
Vital Signs:
Vital Signs
Temp Pulse Resp BP Pulse Ox
97.7 F 72 18 142/67 98
09/29/23 12:13 09/29/23 12:13 09/29/23 12:13 09/29/23 12:13 09/29/23 12:13
I&O
09/28/23 09/29/23 09/30/23
06:59 06:59 06:59
Intake Total 420 / 420 240 / 240
Balance 420 / 420 240 / 240
Review of Systems
-
Constitutional: Denies Fever or Chills
EENT: Denies Sore Throat
Respiratory: Reports Cough and Trouble Breathing (Improved)
Cardiac: Denies Chest Pain
Abdomen/GI: Reports Anorexia; Denies Nausea or Vomiting
Neuro: Denies Dizzy
Physical Exam
-
General: No Apparent Distress
HEENT: Moist Mucous Membranes
Respiratory: Crackles (Bibasilar) and Non Labored Respirations; Negative Wheezes (Today) or Accessory Resp Muscle Use
Cardiac: S1/S2 and Irregular Rhythm; Negative Tachycardic
GI: Soft, Nondistended, Normal Bowel Sounds and Tender (Some discomfort in the epigastric area)
Neuro: AO x 3
Psych: Calm; Negative Confused or Agitated
Data Reviewed
-
Labs: Labs Reviewed by me
[2023-09-29 16:50] VITALS: BP 143/73
[2023-09-29 17:27] LABS: Glucose - Point of Care 150 mg/dl (70-99)
[2023-09-29] MEDS: NOVOLOG FLEXPEN-LOW RESISTANCE 1 UNITS SC (17:35)
[2023-09-29] MEDS: MIRALAX PO (17:36)
[2023-09-29] MEDS: LIPITOR 10 MG PO (17:36)
--- NOTE | 2023-09-29 18:17 | CON.MD ---
Consultation - Medical
-
83 yo F w/ PMH of afib, COPD on home O2, CVA w/ last episode 10/2022 on Eliquis, HTN, RA and anxiety. Current admission being worked up for concerns of possible SMA syndrome w/ evaluation for GJ tube insertion for nutrition. Psychiatry consulted for
anxiety, w/ worsening of sxs in context of current dx.
Pt seen & evaluated at bedside - appears quite anxious on exam, had to be redirected several times to focus on breathing and not become panicked. At one point pt became anxious stating 'it feels so hot in here!' - was reassured that this was not her
anxiety but that it was indeed quite hot in the room, however pt did have difficulty with grounding back to discussion and needed some time.
Reports long hx of anxiety, with overthinking, racing thoughts, excessive worry, internal distress, diaphoreses, panic attacks. Previously trialed zoloft but states this was discontinued due to concerns of it inducing hyponatremia. Has been on
Buspar for several years, does not believe she was on a higher dose before and is not sure if it was beneficial initially, however says that current stressors have increased baseline anxiety & it certainly is not helping at this time. States that
pcp recently started Xanax, is not sure why buspar was not increased however & denies SEs from it. Discussed that this is a rather low dose of buspar and not surprising for it to not help much, pt agreeable to trial of dose increase so as to
minimize (or altogether avoid) benzo use given her age and risks of resp. depression, falls and confusion.
She also reports that current breathing difficulties contribute to anxiety/panic � whenever she has trouble catching her breath, she becomes panicked, which then causes hyperventilation and further both SOB and anxiety/panic.
No prior inpatient psych hx.
Has social supports of children & grandchildren, one of whom is trauma surgeon & involved in pts care. Pt can be seen smiling when talking about children & grandchildren, even while anxious, so they clearly mean a lot to her.
No significant D&A use reported.
Generalized Anxiety Disorder w/ panic attacks
MSE: female, fair eye contact, cooperative, speech is nl rate & rhythm. Mood & affect anxious. Denies si/hi/avh/delusions. Thought process is linear & logical, though preoccupied with anxiety at this time. Memory not formally tested. Fully oriented.
Insight/judgement fair.
1.������ Increase Buspar to 10mg BID, can increase further as even this is a relatively low dose for buspar
2.������ Trazodone 12.5mg bidprn panic attacks � low enough dose that should avoid sedation and provide safer alternative to prn benzo if pt finds it helpful
3.������ Worked with pt on some breath work � told her to count breath to 4 count in, and 4 count out so as to avoid hyperventilation. Would encourage staff to remind her of this if she starts to become more anxious as it was helpful for her during
our interview
[2023-09-29 19:05] VITALS: BP 137/66
[2023-09-29] MEDS: BUSPAR 10 MG PO (20:22)
[2023-09-29 21:44] LABS: Glucose - Point of Care 136 mg/dl (70-99)
[2023-09-29] MEDS: DESYREL 150 MG PO (22:18)
[2023-09-29] MEDS: TOPROL XL 50 MG PO (22:18)
[2023-09-30] VITALS (8 sets, daily range): BP systolic 138–169; BP diastolic 63–101; PULSE 80; O2SAT 99; BMI 20.1
[2023-09-30 06:07] LABS: Hematocrit 33.4 % (37.0-47.0); Hemoglobin 11.1 g/dL (12.0-16.0); Mean Corp Hgb Conc. 33.2 g/dL (33.0-37.0); Mean Corpuscular Hgb 30.6 pg (27.0-31.0); Mean Platelet Volume 10.3 fL (7.4-10.4); Platelet Count 305 10^3/uL (130-400); Red Blood Cell Count 3.63 10^6/uL (4.20-5.40); Red Cell Dist. Width 15.9 % (11.5-14.5); White Blood Cell Count 18.5 10^3/uL (4.8-10.8)
[2023-09-30 06:34] LABS: Blood Urea Nitrogen 52 mg/dl (7-17); Calcium 9.2 mg/dl (8.4-10.2); Carbon Dioxide 27 mmol/L (22-30); Chloride 98 mmol/L (98-107); Estimated Creatinine Clearance 28 ml/min; Glucose 104 mg/dl (70-99); Potassium 5.2 mmol/L (3.5-5.1); Sodium 133 mmol/L (135-145)
[2023-09-30] MEDS: SPIRIVA RESPIMAT 2.5 MCG 2 PUFF INH (07:24)
[2023-09-30] MEDS: ADVAIR HFA 115/21 MCG INHALER 2 PUFF INH ×2 (07:25→20:17)
[2023-09-30] MEDS: XOPENEX 1.25 MG INHALANT SOLUTION INH ×4 (07:28→20:17)
[2023-09-30 08:10] LABS: Glucose - Point of Care 102 mg/dl (70-99)
[2023-09-30] MEDS: AUGMENTIN 875 MG/125 MG 1 TABLET PO ×2 (08:12→20:50)
[2023-09-30] MEDS: NOVOLOG FLEXPEN-LOW RESISTANCE SC ×3 (08:12→17:55)
[2023-09-30] MEDS: CARDIZEM CD 240 MG PO (08:12)
[2023-09-30] MEDS: BUSPAR 10 MG PO ×2 (08:13→20:50)
[2023-09-30] MEDS: DELTASONE 30 MG PO (08:13)
[2023-09-30] MEDS: ELIQUIS 2.5 MG PO ×2 (08:13→20:50)
[2023-09-30] MEDS: PROTONIX IV 40 MG IV (08:14)
[2023-09-30] MEDS: MARINOL 2.5 MG PO ×3 (08:14→22:02)
[2023-09-30] MEDS: NSS (PRESERVATIVE FREE) 10 ML IV (08:14)
--- NOTE | 2023-09-30 09:23 | W.PN.GS2 ---
Today's Communication / Plan
-
Nutrition labs ordered
Aspiration precautions
PPI
Hold Eliquis
Would recommend starting conservatively with a nasojejunal feeding tube
Assessment / Plan
-
This is an 83-year-old female a history of A-fib, hypertension, COPD on home O2, appendectomy who presented on 09/25/[address] and subsequent upper GI small bowel follow-through imaging concerning for gastroparesis/DGE, SMA
syndrome versus a more global dysmotility picture.
Nutrition labs ordered
Aspiration precautions
PPI
Hold Eliquis
Would recommend starting conservatively with a nasojejunal feeding tube which will likely need to be endoscopically placed. If she is able to tolerate TFs this would 1. rule out a global dysmotility picture, 2. Give her the appropriate
preoperative nutrition needed before any surgical bypass or feeding access procedure.
Time Spent
Total Time Spent with Patient (in minutes): 25
Subjective Data
-
Date of Service: September 30, 2023
Interval Events:
No acute events overnight. Reports tolerating 2-3 ensures per day, however still complaining of mild epigastric discomfort, early satiety and anorexia. She states that food does not taste good and has not for some time, she also endorses a
'metallic taste most foods'.
Objective Data
-
Intake and Output
09/29/23 09/30/23 10/01/23
06:59 06:59 06:59
Intake Total 240 / 240 1150 / 1150
Balance 240 / 240 1150 / 1150
Intake:
Oral fluids 240 / 240 1030 / 1030
IV fluids (Total) 120 / 120
Other:
Number of approximated SMALL 2 1
amounts of urine
Number of approximated MODERATE 2
amounts of urine
How many times incontinent 1
SMALL amount urine
Number of unmeasured liquid
stools
Rectum 1
Vital Signs
Temp Pulse Resp BP Pulse Ox
97.6 F 81 16 159/71 95
09/30/23 08:26 09/30/23 08:26 09/30/23 08:26 09/30/23 08:26 09/30/23 08:26
Lab Results
09/30/23 05:26
09/30/23 05:26
Calcium 9.2 mg/dl (8.4-10.2) 09/30/23 05:26
Total Bilirubin 0.7 mg/dl (0.2-1.3) 09/25/23 03:43
AST 27 U/L (14-36) 09/25/23 03:43
ALT 12 U/L (0-35) 09/25/23 03:43
Alkaline Phosphatase 97 U/L (38-126) 09/25/23 03:43
Total Protein 5.9 g/dl (6.3-8.2) L 09/25/23 03:43
Albumin 3.4 g/dl (3.5-5.0) L 09/25/23 03:43
Physical Exam
-
GENERAL/NEURO: Awake, Alert, mild distress, thin.
CHEST: Unlabored breathing on nasal cannula
ABDOMEN: Soft, Non-Tender, Distended
--- NOTE | 2023-09-30 10:35 | W.PN.HOSP.TC ---
Today's Communication/Plan
-
monitor vitals
see plan
echo today
GI and surgery evaluation ongoing regarding nutrition and further management
cw full liquids; cw ensure
Assessment / Plan
Assessment / Plan
Nausea vomiting with worsening reflux.
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 Upper GI series with small bowel follow-through also raises concern about duodenal compression and SMA syndrome.
She is delayed gastric emptying unclear if it is because of external compression of duodenum or motility problem.
Severe gastric reflux noted on upper GI series
GI and surgery following -currently on full liquid diet and diet supplements
Continue with PPI IV
Ongoing evaluation for GJ tube insertion for nutrition.
pulmonary following
Spoke with GI who also spoke with IR about GJ tube; Our IR at [facility] doesnt do GJ tube. GI also spoke with IR at [facility] who wants patient to be intubated for GJ tube. Surgery recommending NJ tube and if patient tolerates then J tube
Rapid atrial fibrillation-hemodynamically stable. Improved heart rate patient known to have permanent atrial fibrillation. She on beta-edilma and Cardizem . Cardiology following
Shortness of breath- chest x-ray with mild small bilateral pleural effusions. No evidence of pulmonary edema. Suspect multifactorial-atrial fibrillation, COPD flare, anxiety .
COPD-with mild flare . Currently not bronchospastic. Continue with Xopenex nebulizers. Wean steroids further-changed to oral prednisone 09/28
Chronic hypoxic respiratory insufficiency-patient on home O2-continue with 3 L of oxygen which is her home O2 FiO2
pulmonary following; per pulmonary patient is moderate risk for perioperative pulmonary complications
mild hyperkalemia
monitor
Hyponatremia
monitor
Leukocytosis noted-patient clinically feels better from a breathing. She had diarrheal stools yesterday. So far today she has 1 bowel movement. She is drinking a lot of prune juice which I asked her to hold. Hold MiraLAX
Suspect leukocytosis may be related to steroids. She is afebrile. Nontoxic looking. Continue to follow.
CRISTÓBAL-jump in creatinine noted. No oral intake chart available. Unclear intake. Check bladder scan. Start on IV fluids and closely follow.
History of CVA- Last episode 10/2022 -felt thromboembolic- on Eliquis [last taken on Saturday evening]. Dr Agustin discussed with GI and surgery-no plans for interventions. Resumed Eliquis .
Essential HTN - cw home meds and follow
RA on Humira
Anxiety disorder-patient on BuSpar along with Xanax at home. She is becoming more anxious around her diagnosis. Continue with Ativan . consult psychiatry.
Moderate protein calorie malnutrition
Full code
Discussed with granddaughter 09/[address] Agustin who is a trauma surgeon at bedside today. She wants to explore the option of IR directed GJ tube insertion if not done short-term TPN for weight gain to help with her SMA syndrome. Will discuss with GI
and surgery. They also want to try Marinol for appetitie.
General: No Apparent Distress
HEENT: Moist Mucous Membranes
Respiratory: Crackles (Bibasilar) and Non Labored Respirations; Negative Wheezes
Cardiac: S1/S2 and Irregular Rhythm; Negative Tachycardic
GI: Soft, Nondistended, Normal Bowel Sounds and Tender (Some discomfort in the epigastric area)
Neuro: AO x 3
Psych: Calm; Negative Confused or Agitated
Anticipated Discharge: > 48 hours
Subjective/Interval History
-
Date of Service: September 30, 2023
denies pain
Objective Data
-
Labs:
Laboratory Results
09/30/23
05:26
WBC 18.5 H
Hgb 11.1 L
Hct 33.4 L
Plt Count 305
Sodium 133 L
Potassium 5.2 H
Chloride 98
Carbon Dioxide 27
BUN 52 H
Creatinine 1.3 H
Glucose 104 H
Calcium 9.2
Vital Signs:
Vital Signs
Temp Pulse Resp BP Pulse Ox
97.6 F 81 16 159/71 95
09/30/23 08:26 09/30/23 08:26 09/30/23 08:26 09/30/23 08:26 09/30/23 08:26
I&O
09/29/23 09/30/23 10/01/23
06:59 06:59 06:59
Intake Total 240 / 240 1150 / 1150
Balance 240 / 240 1150 / 1150
--- NOTE | 2023-09-30 11:53 | PTCARENOTE ---
Ate 80% of breakfast. Note that breakfast consisted of 1 yogurt, 240ml Ensure, and a hot tea.
[2023-09-30 12:32] LABS: Glucose - Point of Care 131 mg/dl (70-99)
[2023-09-30] MEDS: D5/0.45%NACL IV (12:35)
--- NOTE | 2023-09-30 12:38 | W.PN.PUL3 ---
Today's Communication / Plan
-
Wean O2 as tolerated, can obtain 6MWT
Bedside PFT pending
ECHO reviewed showing severe pulmonary hypertension, no comparisons
She would be high risk from pulmonary perspective but if she wishes to proceed, will defer to GI/Surg for further management
She is Full Code but does not wish to be prolonged on the ventilator, see discussion below
Wean prednisone slowly, taper by 10mg likely every 4-5 days if tolerated
Reviewed at bedside with family
Assessment
-
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
COPD management 09/29/2023.
COPD-suspect Gold stage IV with mild acute exacerbation
Nausea/vomiting/reflux and gastroparesis suspected
Rapid atrial fibrillation
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
Leukocytosis-WBC 19.3
Kxueiu-tcglovljbd-jkbzgefsmz 10.1
Mild hyponatremia-serum sodium 131
CRISTÓBAL-serum creatinine increased from 1.1 up to 1.6
Severe pulmonary hypertension
Conditions present prior to admission:
COPD-3 L oxygen-followed by Dr. Wick, maintained on Advair, Spiriva, and albuterol or nebulizers as needed
Anxiety.
Atrial fibrillation.
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
Chronic anticoagulation.
Hypertension.
Hyperlipidemia.
Recurrent UTIs.
RA on Humira.
Anxiety.
GERD.
Appendectomy.
Plan
Respiratory status currently at baseline, she is 99% on 2L NC
She has a history of Gold stage IV COPD per patient, no PFTs for review
She notes that she normally has O2 at home, but uses this only with exertion, at rest she does not use
Supplemental oxygen as needed, we can assess formal walk test to evaluate
Advair and Spiriva -- continue on home inhaler regiment or equivalent
Xopenex nebulizers 3 times daily
Prednisone 30 mg daily-wean if tolerated
Mucolytic's as needed
Incentive spirometry and Acapella if needed
Aspiration precautions
GI evaluation noted-ideally patient needs GJ tube for SMA syndrome
Patient's musical engineer Dr. Salinas reportedly would not perform endoscopy due to high risk because of lung condition
Patient saw her sister on a ventilator and how uncomfortable she was and patient would not like to be on a ventilator [id number] if complication occurred to be short-term ventilator such as 2-3 days with subsequent removal and allowing her
to pass if she could not come off in a reasonable amount of time-specifically 2-3 days-family members there during this conversation
From a perioperative risk assessment, she would be high
Check bedside spirometry-suspect severe COPD
Obtain Dr. Yarbrough pulmonary notes if possible
Cardiology following-correspondence reviewed-signing off 09/29/2023
Atrial fibrillation rate control
Diuresis as tolerated-serum creatinine has increased
Monitor renal function, electrolytes, intake/output, lower extremity edema and weight
Replace electrolytes as needed
Echocardiogram--Severe tricuspid regurgitation with severe pulmonary hypertension noted.
Cultures reviewed
Augmentin continues
Follow hemoglobin
Transfuse if needed
Monitor blood sugar
Insulin supplementation as needed
Monitor renal function
Consider nephrology evaluation if renal function worsens
DVT prophylaxis-on Eliquis
Nutrition-being addressed by gastroenterology
Early mobilization/physical therapy
Outpatient pulmonary [id number]-Bg. Ward at [place]
Reviewed plan of care with patient and family at bedside today for additional time
Diagnostic data:
Chest x-ray 10/19/2022-NAD
Chest x-ray 09/26/2023-small bilateral pleural effusions right greater than left
CT head 09/28/2023-no acute intracranial abnormalities
Brain MRI 11/08-embolic stroke left middle cerebral artery
ECHO 09/30/23- Normal biventricular size and systolic function without regional wall motion�abnormality.�Moderate� mitral regurgitation.�Trace aortic regurgitation.�Severe tricuspid regurgitation with severe pulmonary hypertension.�No prior study
available for comparison.
Subjective Data
-
Date of Service:
Date of Service: September 30, 2023
Chief Complaint: Pulmonary Follow Up
Subjective:
patient seen and examined, no acute events on
family at bedside
she feels essentially back to baseline
remains on supplemental o2 chronically
Objective Data
Data Reviewed
Vital Signs / I&O / Oxygen:
Vital Signs
Temp Pulse Resp BP Pulse Ox
97.4 F 83 20 138/67 100
09/30/23 11:21 09/30/23 11:21 09/30/23 11:21 09/30/23 11:21 09/30/23 11:21
Intake and Output
09/29/23 09/30/23 10/01/23
06:59 06:59 06:59
Intake Total 240 / 240 1150 / 1150 240 / 240
Balance 240 / 240 1150 / 1150 240 / 240
SaO2 100
Nasal Cannula flow liters per 2
minute
Physical Exam
General: Comfortable, Poor Appetite and Other (NAD/cachectic appearing)
HEENT: Normocephalic, Anicteric and Moist Mucous Membranes
Cardiovascular: S1-S2 and Regular Rhythm
Respiratory: Clear (overall decreased) and Non-Labored Respirations
GI: Soft, Non Distended and Non Tender
Neurology: Awake, Alert, Oriented, AO x 3, No Motor Deficits and Depressed
Skin: Warm, Dry and Good Color
Labs/Micro/Reports
Lab Data
09/30/23 05:26
09/30/23 05:26
Microbiology
09/25/23 05:02 Urine Urine Culture - Final
Klebsiella pneumoniae
--- NOTE | 2023-09-30 14:37 | W.PN.GI.CBS2 ---
Today's Communication / Plan
-
Plan:
Suspicion for SMA syndrome
Currently on full liquid diet, still struggling and not able to complete her tray.
Reviewed surgical note, nasojejunal tube recommended through an endoscopy, currently patient's respiratory status is not optimized to do endoscopy. When she is optimized from a medical standpoint, we could do an endoscopy G-tube followed by IR
J-tube.
Reached out to IR department at [facility], they will need the patient intubated for IR GJ tube as well.
Patient is on Eliquis, that needs to be held when patient is getting endoscopy GJ tube placement and needs bridging.
For now continue- small, frequent meals, would stick to a full liquid diet for now with dietary supplementation with Ensure.
Discussed with medical team and patient's family as well
-Follow up appt made for Dr. Simon for 10/25/23 at 12:00.
Assessment / Plan
-
1. Early satiety/weight loss: Symptoms consistent with delayed gastric emptying, with suggestion of SMA syndrome on CT scan with narrowed aortomesenteric angle and dilated stomach and proximal duodenum. There did seem to be some dilated small
loops of bowel distally on CT scan, though upper GI with small bowel follow-through again shows markedly delayed gastric emptying with dilated duodenum transitioning across the midline at the expected area of the SMA to decompressed for portion of
the duodenum, with some mildly delayed transit distally though no significant dilation. Again most of her symptoms are delayed gastric emptying and given now imaging both on CT scan and upper GI is consistent with SMA syndrome. This may be more
from dense atherosclerosis noted on CT scan.
Plan:
Suspicion for SMA syndrome
Currently on full liquid diet, still struggling and not able to complete her tray.
Reviewed surgical note, nasojejunal tube recommended through an endoscopy, currently patient's respiratory status is not optimized to do endoscopy. When she is optimized from a medical standpoint, we could do an endoscopy G-tube followed by IR
J-tube.
Reached out to IR department at [facility], they will need the patient intubated for IR GJ tube as well.
Patient is on Eliquis, that needs to be held when patient is getting endoscopy GJ tube placement and needs bridging.
For now continue- small, frequent meals, would stick to a full liquid diet for now with dietary supplementation with Ensure.
Discussed with medical team and patient's family as well
-Follow up appt made for Dr. Simon for 10/25/23 at 12:00.
Subjective
Subjective
Date of Service: September 30, 2023
Patient continues to complain of cough and some shortness of breath. Tolerating full liquid diet without any nausea or vomiting but not able to finish her tray
Objective
Data Reviewed
Laboratory Data:
Laboratory Results
09/30/23 05:26
09/30/23 05:26
Laboratory Results
Total Bilirubin 0.7 mg/dl (0.2-1.3) 09/25/23 03:43
AST 27 U/L (14-36) 09/25/23 03:43
ALT 12 U/L (0-35) 09/25/23 03:43
Alkaline Phosphatase 97 U/L (38-126) 09/25/23 03:43
Lipase 34 U/L (23-300) 09/25/23 03:43
Vital Signs and I&O:
Vital Signs
Temp Pulse Resp BP Pulse Ox
97.4 F 77 18 138/67 99
09/30/23 11:21 09/30/23 13:17 09/30/23 13:17 09/30/23 11:21 09/30/23 13:17
I&O
09/29/23 09/30/23 10/01/23
06:59 06:59 06:59
Intake Total 240 / 240 1150 / 1150 240 / 240
Balance 240 / 240 1150 / 1150 240 / 240
Physical Exam
Physical Exam
GI: Soft, Non Distended and Non Tender
--- NOTE | 2023-09-30 16:38 | RESPNOTE ---
Patient placed on RA- SAT 96% sitting in chair
Patient ambulated 25FT on RA 91%. Patient with noticeable SOB and stating that she is ' weak' and would like to go back to room. Patient stated on RA for duration of walk 91-92%. HR 132. Placed back in chair on 2 liters-95% RR 26 HR 94
[2023-09-30] MEDS: MIRALAX PO (17:50)
[2023-09-30] MEDS: LIPITOR 10 MG PO (17:50)
[2023-09-30 17:55] LABS: Glucose - Point of Care 159 mg/dl (70-99)
--- NOTE | 2023-09-30 17:58 | PTCARENOTE ---
Patient ate 100% of lunch which included 240ml Ensure, 90ml custard, 180ml soup.
[2023-09-30] MEDS: MIRALAX 17 GRAMS PO (18:37)
[2023-09-30] MEDS: TOPROL XL 50 MG PO (22:02)
[2023-09-30] MEDS: DESYREL 150 MG PO (22:02)
[2023-09-30] MEDS: NSS (PRESERVATIVE FREE) 0.125 ML IV (22:02)
[2023-09-30] MEDS: ATIVAN 0.5 MG IV (22:03)
[2023-09-30 22:31] LABS: Glucose - Point of Care 156 mg/dl (70-99)
--- NOTE | 2023-09-30 23:13 | PTCARENOTE ---
Pt transferred to room 2112 on the order of maintenance d/t room 2111 needing to be blocked. All personal belongings were brought to new room. Pt introduced to room and layout. Pt made aware of reasoning or changing rooms.
[2023-10-01] VITALS (7 sets, daily range): BP systolic 140–184; BP diastolic 64–98; BMI 20.2
[2023-10-01] MEDS: D5/0.45%NACL 1000 IV ×2 (01:00→17:11)
[2023-10-01 05:10] LABS: % Basophils 0.2 % (0-2); % Immature Granulocytes 2.3 % (0-0.5); % Lymphocytes 8.8 % (20.5-51.1); % Monocytes 8.6 % (1.7-9.3); % Neutrophils 80.1 % (42.2-75.2); Absolute Immature Granulocytes 0.4 10^3/uL (0-0.05); Absolute Lymphocytes 1.4 10^3/uL (1.2-3.4); Absolute Monocytes 1.4 10^3/uL (0.1-0.6); Absolute Neutrophils 12.6 10^3/uL (1.4-6.5); Hematocrit 31.2 % (37.0-47.0); Hemoglobin 10.3 g/dL (12.0-16.0); Mean Corpuscular Hgb 30.1 pg (27.0-31.0); Mean Corpuscular Volume 91.2 fL (81.0-99.0); Mean Platelet Volume 10.1 fL (7.4-10.4); Nucleated Red Blood Cells % 0 %; Platelet Count 282 10^3/uL (130-400); Red Blood Cell Count 3.42 10^6/uL (4.20-5.40); White Blood Cell Count 15.7 10^3/uL (4.8-10.8)
--- NOTE | 2023-10-01 05:42 | PTCARENOTE ---
Pt consumed roughly 60mL of ensure after dinner. Pt ambulated w walker to toilet for x4 BM and to void. No distress noted. Assessment ongoing.
[2023-10-01 05:47] LABS: Blood Urea Nitrogen 44 mg/dl (7-17); Calcium 8.7 mg/dl (8.4-10.2); Carbon Dioxide 29 mmol/L (22-30); Chloride 99 mmol/L (98-107); Estimated Creatinine Clearance 33 ml/min; Glucose 108 mg/dl (70-99); Potassium 4.5 mmol/L (3.5-5.1); Sodium 135 mmol/L (135-145); eGFR 49.86
[2023-10-01 05:55] LABS: Prealbumin (Transthyretin) 20.5 mg/dl (17.6-36.0)
--- NOTE | 2023-10-01 07:24 | W.PN.GI.CBS2 ---
Addendum entered and electronically signed by John Melgoza MD 10/01/23 18:06:
I saw and examined the patient.
The PA's note was reviewed and I agree with the note.
Comment:
Given her pulmonary status with advanced COPD and pulm HTN, there is significant david-procedural risk and little reserve if complications occur during the procedure. Pt herself is does not want PEG/J. She is tolerating liquid diet, agree with
advancing diet as tolerated and see if she can meet her nutritional needs. PEG/J is not a durable therapy for her delayed gastric emptying and thus the risk vs perceived benefit is questionable. Will follow.
Original Note:
Today's Communication / Plan
-
discussed again with patient for feeding tube -- high risk for procedure given pulm status and pulm HTN
she wishes to hold on tube as would require sedation and intubation for IR G/J or surg J tube
cont diet advance to minced and moist with ensure TID as some increased appetite today
reviewed with patient she should review her wishes with her family
Pt remain on Eliquis
cont PPI
Dr. Simon, Dr. Aden have spoken at length with family -- Pt scheduled 10/24 at noon follow up with Dr. Simon
also reviewed she should have OP follow up with known pulm MD at [facility] to review status
also discussed marijuana hyperemesis disorder with recent start of use prior to admission
Assessment / Plan
-
1. Early satiety/weight loss: Symptoms consistent with delayed gastric emptying, with suggestion of SMA syndrome on CT scan with narrowed aortomesenteric angle and dilated stomach and proximal duodenum. There did seem to be some dilated small
loops of bowel distally on CT scan, though upper GI with small bowel follow-through again shows markedly delayed gastric emptying with dilated duodenum transitioning across the midline at the expected area of the SMA to decompressed for portion of
the duodenum, with some mildly delayed transit distally though no significant dilation. Again most of her symptoms are delayed gastric emptying and given now imaging both on CT scan and upper GI is consistent with SMA syndrome. This may be more
from dense atherosclerosis noted on CT scan.
Plan:
Suspicion for SMA syndrome vs other process with advanced lung disease with wt loss, delayed gastric emptying
advanced lung disease/COPD with pulm HTN on echo
recent Marijuana use
-GERD on Aciphex
-wt loss
-recent start of medical Marijuana
other medical problems:
-afib on Eliquis
-RA in Humira
-HTN
-hyperlipidemia
-Prior appe
discussed again with patient for feeding tube -- high risk for procedure given pulm status and pulm HTN
she wishes to hold on tube as would require sedation and intubation for IR G/J or surg J tube
cont diet advance to minced and moist with ensure TID as some increased appetite today
reviewed with patient she should review her wishes with her family
Pt remain on Eliquis
cont PPI
Dr. Simon, Dr. Aden have spoken at length with family -- Pt scheduled 10/24 at noon follow up with Dr. Simon
also reviewed she should have OP follow up with known pulm MD at [facility] to review status
also discussed marijuana hyperemesis disorder with recent start of use prior to admission
Subjective
Subjective
Date of Service: October 01, 2023
10/01 soft stool, on full liquid diet with supplement TID slight improved appetite
Objective
Data Reviewed
Laboratory Data:
Laboratory Results
10/01/23 03:57
10/01/23 03:57
Laboratory Results
Total Bilirubin 0.7 mg/dl (0.2-1.3) 09/25/23 03:43
AST 27 U/L (14-36) 09/25/23 03:43
ALT 12 U/L (0-35) 09/25/23 03:43
Alkaline Phosphatase 97 U/L (38-126) 09/25/23 03:43
Lipase 34 U/L (23-300) 09/25/23 03:43
Vital Signs and I&O:
Vital Signs
Temp Pulse Resp BP Pulse Ox
97.6 F 74 16 152/80 100
10/01/23 03:37 10/01/23 03:37 10/01/23 03:37 10/01/23 03:37 10/01/23 03:37
I&O
09/30/23 10/01/23 10/02/23
06:59 06:59 06:59
Intake Total 1150 / 1150 7570 / 7570
Balance 1150 / 1150 7570 / 7570
Physical Exam
Physical Exam
HEENT: Anicteric and Moist mucous membranes
Cardiology: Normal Sinus Rhythm
Pulmonary: Other (shortness of breath at rest)
GI: Soft, Non Distended and Non Tender
Neuro: Non Focal
[2023-10-01] MEDS: XOPENEX 1.25 MG INHALANT SOLUTION INH ×3 (07:27→20:22)
[2023-10-01] MEDS: SPIRIVA RESPIMAT 2.5 MCG 2 PUFF INH (07:28)
[2023-10-01] MEDS: ADVAIR HFA 115/21 MCG INHALER 2 PUFF INH ×2 (07:29→20:23)
[2023-10-01 08:02] LABS: Glucose - Point of Care 89 mg/dl (70-99)
[2023-10-01] MEDS: NOVOLOG FLEXPEN-LOW RESISTANCE SC ×3 (08:21→17:37)
[2023-10-01] MEDS: MARINOL 2.5 MG PO ×3 (08:21→21:53)
[2023-10-01] MEDS: AUGMENTIN 875 MG/125 MG 1 TABLET PO ×2 (08:21→19:46)
[2023-10-01] MEDS: CARDIZEM CD 240 MG PO (08:21)
[2023-10-01] MEDS: BUSPAR 10 MG PO ×2 (08:22→19:46)
[2023-10-01] MEDS: NSS (PRESERVATIVE FREE) 10 ML IV (08:22)
[2023-10-01] MEDS: DELTASONE 30 MG PO (08:22)
[2023-10-01] MEDS: PROTONIX IV 40 MG IV (08:22)
[2023-10-01] MEDS: ELIQUIS 2.5 MG PO ×2 (08:22→19:46)
--- NOTE | 2023-10-01 10:48 | W.PN.HOSP.TC ---
Today's Communication/Plan
-
monitor vitals
see plan
advance diet per GI; now on minced and moist
if tolerates diet then likely can follow up for further management outpatient
given severe COPD and pulmonary hypertension patient, is high risk
Assessment / Plan
Assessment / Plan
Nausea vomiting with worsening reflux.
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 Upper GI series with small bowel follow-through also raises concern about duodenal compression and SMA syndrome.
She is delayed gastric emptying unclear if it is because of external compression of duodenum or motility problem.
Severe gastric reflux noted on upper GI series
GI and surgery following -now advanced to minced and moist with ensure; if patient able to tolerate then likely can persue further care outpatient. Spoke with patient in detail and she doesnt want to persue feeding tube if it requires intubation.
Patient has severe COPD and pulmonary HTN
Continue with PPI
Ongoing evaluation for GJ tube insertion for nutrition.
pulmonary following
Spoke with GI 09/30 who also spoke with IR about GJ tube; Our IR at [facility] doesnt do GJ tube. GI also spoke with IR at [facility] who wants patient to be intubated for GJ tube. Surgery recommending NJ tube and if patient tolerates then J tube. GI
doesnt think patient will get EGD without intubation at this time
Rapid atrial fibrillation-hemodynamically stable. Improved heart rate patient known to have permanent atrial fibrillation. She on beta-edilma and Cardizem . Cardiology following
Shortness of breath- chest x-ray with mild small bilateral pleural effusions. No evidence of pulmonary edema. Suspect multifactorial-atrial fibrillation, COPD flare, anxiety .
COPD-with mild flare . Currently not bronchospastic. Continue with Xopenex nebulizers. Wean steroids further-changed to oral prednisone 09/28
Chronic hypoxic respiratory insufficiency-patient on home O2-continue with 3 L of oxygen which is her home O2 FiO2
pulmonary following; per pulmonary patient is high risk for perioperative pulmonary complications
Echo 09/30 with severe pulmonary hypertension
mild hyperkalemia
resolved
Hyponatremia
monitor
Leukocytosis noted-patient clinically feels better from a breathing. She had diarrheal stools yesterday. So far today she has 1 bowel movement. She is drinking a lot of prune juice which I asked her to hold. Hold MiraLAX
Suspect leukocytosis may be related to steroids. She is afebrile. Nontoxic looking. Continue to follow.
CRISTÓBAL-jump in creatinine noted. No oral intake chart available. Unclear intake. Check bladder scan. Start on IV fluids and closely follow.
History of CVA- Last episode 10/2022 -felt thromboembolic- on Eliquis [last taken on Saturday evening]. Dr Agustin discussed with GI and surgery-no plans for interventions. Resumed Eliquis .
Essential HTN - cw home meds and follow
RA on Humira
Anxiety disorder-patient on BuSpar along with Xanax at home. She is becoming more anxious around her diagnosis. Continue with Ativan . consult psychiatry.
Moderate protein calorie malnutrition
Full code
Discussed with granddaughter 09/[address] Agustin who is a trauma surgeon at bedside today. She wants to explore the option of IR directed GJ tube insertion if not done short-term TPN for weight gain to help with her SMA syndrome. Will discuss with GI
and surger following. They also want to try Marinol for appetitie.
General: No Apparent Distress
HEENT: Moist Mucous Membranes
Respiratory: Crackles (Bibasilar) and Non Labored Respirations; Negative Wheezes
Cardiac: S1/S2 and Irregular Rhythm; Negative Tachycardic
GI: Soft, Nondistended, Normal Bowel Sounds and Tender (Some discomfort in the epigastric area)
Neuro: AO x 3
Psych: Calm; Negative Confused or Agitated
Anticipated Discharge: Within 24 hours
Subjective/Interval History
-
Date of Service: October 01, 2023
denies chest pain
Objective Data
-
Labs:
Laboratory Results
10/01/23
03:57
WBC 15.7 H
Hgb 10.3 L
Hct 31.2 L
Plt Count 282
Sodium 135
Potassium 4.5
Chloride 99
Carbon Dioxide 29
BUN 44 H
Creatinine 1.1 H
Glucose 108 H
Calcium 8.7
Vital Signs:
Vital Signs
Temp Pulse Resp BP Pulse Ox
97.7 F 66 18 147/72 100
10/01/23 07:11 10/01/23 07:33 10/01/23 07:33 10/01/23 07:11 10/01/23 07:33
I&O
09/30/23 10/01/23 10/02/23
06:59 06:59 06:59
Intake Total 1150 / 1150 7570 / 7570
Balance 1150 / 1150 7570 / 7570
--- NOTE | 2023-10-01 11:16 | W.PN.PUL3 ---
Today's Communication / Plan
-
Severe COPD, awaiting PFT/6MWT testing
GI eval reviewed, patient will hold off on tube placement given her high pulmonary risk
If can tolerate PO, team to initiate discharge planning
FU with outpatient pulmonary group at [facility] for further care/discussions
Assessment
-
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
COPD management 09/29/2023.
Severe COPD-suspect Gold stage IV with acute exacerbation
Nausea/vomiting/reflux and gastroparesis suspected
Rapid atrial fibrillation
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
Leukocytosis-WBC 19.3
Jmmqpc-cthxsvilmr-itcppyuywq 10.1
Mild hyponatremia-serum sodium 131
CRISTÓBAL-serum creatinine increased from 1.1 up to 1.6
Severe pulmonary hypertension
Conditions present prior to admission:
COPD-3 L oxygen-followed by Dr. Wick, maintained on Advair, Spiriva, and albuterol or nebulizers as needed
Anxiety.
Atrial fibrillation.
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
Chronic anticoagulation.
Hypertension.
Hyperlipidemia.
Recurrent UTIs.
RA on Humira.
Anxiety.
GERD.
Appendectomy.
Plan
Respiratory status currently at baseline, she is 99% on 2L NC
She has a history of Severe Gold Stage IV COPD per patient, no PFTs for review
She notes that she normally has O2 at home, but uses this only with exertion, at rest she does not use
Supplemental oxygen as needed, we can assess formal walk test to evaluate
Advair and Spiriva -- continue on home inhaler regiment or equivalent
Xopenex nebulizers 3 times daily
Prednisone 30 mg daily-wean if tolerated
Mucolytic's as needed
Incentive spirometry and Acapella if needed
Aspiration precautions
GI evaluation noted-ideally patient needs GJ tube for SMA syndrome
Patient's steel tier Dr. Salinas reportedly would not perform endoscopy due to high risk because of lung condition
Patient saw her sister on a ventilator and how uncomfortable she was and patient would not like to be on a ventilator [id number] if complication occurred to be short-term ventilator such as 2-3 days with subsequent removal and allowing her
to pass if she could not come off in a reasonable amount of time-specifically 2-3 days-family members there during this conversation
From a perioperative risk assessment, she would be high
Check bedside spirometry-suspect severe COPD
Obtain Dr. Yarbrough pulmonary notes if possible
Cardiology following-correspondence reviewed-signing off 09/29/2023
Atrial fibrillation rate control
Diuresis as tolerated-serum creatinine has increased
Monitor renal function, electrolytes, intake/output, lower extremity edema and weight
Replace electrolytes as needed
Echocardiogram--Severe tricuspid regurgitation with severe pulmonary hypertension noted.
Cultures reviewed
Augmentin continues
Follow hemoglobin
Transfuse if needed
Monitor blood sugar
Insulin supplementation as needed
Monitor renal function
Consider nephrology evaluation if renal function worsens
DVT prophylaxis-on Eliquis
Nutrition-being addressed by gastroenterology
Early mobilization/physical therapy
Outpatient pulmonary [id number]-Mr. Ward at [place]
Reviewed plan of care with patient and family at bedside today for additional time
Diagnostic data:
Chest x-ray 10/19/2022-NAD
Chest x-ray 09/26/2023-small bilateral pleural effusions right greater than left
CT head 09/28/2023-no acute intracranial abnormalities
Brain MRI 11/08-embolic stroke left middle cerebral artery
ECHO 09/30/23- Normal biventricular size and systolic function without regional wall motion�abnormality.�Moderate� mitral regurgitation.�Trace aortic regurgitation.�Severe tricuspid regurgitation with severe pulmonary hypertension.�No prior study
available for comparison.
Subjective Data
-
Date of Service:
Date of Service: October 01, 2023
Chief Complaint: Pulmonary Follow Up
Subjective:
remains on 2L
no new complaints
sitting in chair
Objective Data
Data Reviewed
Vital Signs / I&O / Oxygen:
Vital Signs
Temp Pulse Resp BP Pulse Ox
97.7 F 66 18 147/72 100
10/01/23 07:11 10/01/23 07:33 10/01/23 07:33 10/01/23 07:11 10/01/23 07:33
Intake and Output
09/30/23 10/01/23 10/02/23
06:59 06:59 06:59
Intake Total 1150 / 1150 7570 / 7570
Balance 1150 / 1150 7570 / 7570
SaO2 100
Nasal Cannula flow liters per 2
minute
Physical Exam
General: Comfortable, Poor Appetite and Other (NAD/cachectic appearing)
HEENT: Normocephalic, Anicteric and Moist Mucous Membranes
Cardiovascular: S1-S2 and Regular Rhythm
Respiratory: Clear (overall decreased) and Non-Labored Respirations
GI: Soft, Non Distended and Non Tender
Neurology: Awake, Alert, Oriented, AO x 3, No Motor Deficits and Depressed
Skin: Warm, Dry and Good Color
Labs/Micro/Reports
Lab Data
10/01/23 03:57
10/01/23 03:57
[2023-10-01] MEDS: ATIVAN 0.5 MG IV (11:28)
[2023-10-01 13:03] LABS: Glucose - Point of Care 145 mg/dl (70-99)
--- NOTE | 2023-10-01 15:44 | CM ---
Reviewed the chart notes and spoke with the patient at the bedside. IMM signed and placed on the chart. PT recommending SNF/rehab prior to transitioning back to home. Patient is not interested in SNF, only interested in home VN. Patient has had
[facility] in the past and would like to have at discharge. CM continues to be available to patient/family and is monitoring medical plan for needs at discharge.
Plan: Discharge to home with [facility] services. Referral sent via [facility].
[2023-10-01] MEDS: LIPITOR 10 MG PO (17:14)
[2023-10-01] MEDS: MIRALAX 17 GRAMS PO (17:14)
[2023-10-01 17:31] LABS: Glucose - Point of Care 160 mg/dl (70-99)
--- NOTE | 2023-10-01 21:35 | PTCARENOTE ---
Patient refused Ensure at this time. Plan of care ongoing.
[2023-10-01 21:52] LABS: Glucose - Point of Care 114 mg/dl (70-99)
[2023-10-01] MEDS: TOPROL XL 50 MG PO (21:53)
[2023-10-01] MEDS: DESYREL 150 MG PO (21:53)
[2023-10-02] VITALS (9 sets, daily range): BP systolic 113–165; BP diastolic 69–100; PULSE 101–111; O2SAT 95–98; BMI 19.8
[2023-10-02] MEDS: APRESOLINE 5 MG IV ×2 (00:28→11:15)
[2023-10-02 06:27] LABS: % Basophils 0.3 % (0-2); % Eosinophils 0.1 % (0-6); % Immature Granulocytes 4.2 % (0-0.5); % Lymphocytes 13.3 % (20.5-51.1); % Neutrophils 73.1 % (42.2-75.2); Absolute Basophils 0.1 10^3/uL (0-0.2); Absolute Immature Granulocytes 0.7 10^3/uL (0-0.05); Absolute Monocytes 1.4 10^3/uL (0.1-0.6); Absolute Neutrophils 11.2 10^3/uL (1.4-6.5); Hematocrit 31.9 % (37.0-47.0); Hemoglobin 10.7 g/dL (12.0-16.0); Mean Corp Hgb Conc. 33.5 g/dL (33.0-37.0); Mean Corpuscular Hgb 30.2 pg (27.0-31.0); Mean Corpuscular Volume 90.1 fL (81.0-99.0); Mean Platelet Volume 10.1 fL (7.4-10.4); Nucleated Red Blood Cells % 0 %; Platelet Count 307 10^3/uL (130-400); Red Blood Cell Count 3.54 10^6/uL (4.20-5.40); Red Cell Dist. Width 15.9 % (11.5-14.5); White Blood Cell Count 15.4 10^3/uL (4.8-10.8)
[2023-10-02] MEDS: SPIRIVA RESPIMAT 2.5 MCG 2 PUFF INH (07:15)
[2023-10-02] MEDS: XOPENEX 1.25 MG INHALANT SOLUTION INH ×3 (07:15→21:11)
[2023-10-02] MEDS: ADVAIR HFA 115/21 MCG INHALER 2 PUFF INH ×2 (07:15→21:09)
[2023-10-02 07:29] LABS: Blood Urea Nitrogen 37 mg/dl (7-17); Calcium 8.6 mg/dl (8.4-10.2); Carbon Dioxide 30 mmol/L (22-30); Chloride 98 mmol/L (98-107); Estimated Creatinine Clearance 36 ml/min; Glucose 101 mg/dl (70-99); Potassium 4.1 mmol/L (3.5-5.1); Sodium 134 mmol/L (135-145)
[2023-10-02 07:57] LABS: Glucose - Point of Care 102 mg/dl (70-99)
[2023-10-02] MEDS: CARDIZEM CD 240 MG PO (08:56)
[2023-10-02] MEDS: AUGMENTIN 875 MG/125 MG 1 TABLET PO (08:56)
[2023-10-02] MEDS: MARINOL 2.5 MG PO ×3 (08:57→21:30)
[2023-10-02] MEDS: ELIQUIS 2.5 MG PO ×2 (08:57→21:30)
[2023-10-02] MEDS: DELTASONE 30 MG PO (08:57)
[2023-10-02] MEDS: NSS (PRESERVATIVE FREE) 10 ML IV (08:58)
[2023-10-02] MEDS: PROTONIX IV 40 MG IV (08:58)
[2023-10-02] MEDS: NOVOLOG FLEXPEN-LOW RESISTANCE SC ×3 (09:08→16:44)
[2023-10-02] MEDS: BUSPAR 10 MG PO ×2 (09:08→21:30)
--- NOTE | 2023-10-02 09:20 | W.PN.PUL3 ---
Today's Communication / Plan
-
Spirometry and home O2 assessment reviewed with patient, she does not require O2 at rest or with exertion
Would be a good candidate for pulmonary rehab as OP
Outpatient pulmonary FU recommended
Ongoing nutritional assessment, defer to GI service for further management
No further recs from our standpoint if not moving forward with procedure on this admission
We will sign off at this time, please call with questions
Assessment
-
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
COPD management 09/29/2023.
Severe COPD-suspect Gold stage IV with acute exacerbation
Nausea/vomiting/reflux and gastroparesis suspected
Rapid atrial fibrillation
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
Leukocytosis-WBC 19.3
Nrgxwz-ktmirdeymg-pnnoeiipus 10.1
Mild hyponatremia-serum sodium 131
CRISTÓBAL-serum creatinine increased from 1.1 up to 1.6
Severe pulmonary hypertension
Conditions present prior to admission:
COPD-3 L oxygen-followed by Dr. Wick, maintained on Advair, Spiriva, and albuterol or nebulizers as needed
Anxiety.
Atrial fibrillation.
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
Chronic anticoagulation.
Hypertension.
Hyperlipidemia.
Recurrent UTIs.
RA on Humira.
Anxiety.
GERD.
Appendectomy.
Plan
Respiratory status currently at baseline, she is 99% on 2L NC
She has a history of Severe Gold Stage IV COPD per patient, no PFTs for review
She notes that she normally has O2 at home, but uses this only with exertion, at rest she does not use
Supplemental oxygen as needed, we can assess formal walk test to evaluate
Walk test 09/30/23: RA- SAT 96% sitting in chair. Patient ambulated 25FT on RA 91%. Patient maintained sat on RA for duration of walk 91-92%. HR 132
Repeat concetta reviewed, FEV1 0.52 L 27% confirmed very severe obstruction, stage IV COPD, reviewed with patient
She notes that she has anxiety when it comes to her breathing.
Advair and Spiriva -- continue on home inhaler regiment or equivalent
Xopenex nebulizers 3 times daily
Prednisone 30 mg daily-wean if tolerated
Mucolytic's as needed
Incentive spirometry and Acapella if needed
Aspiration precautions
GI evaluation noted-ideally patient needs GJ tube for SMA syndrome
Patient's desktop support consultant Dr. Salinas reportedly would not perform endoscopy due to high risk because of lung condition
Patient saw her sister on a ventilator and how uncomfortable she was and patient would not like to be on a ventilator [id number] if complication occurred to be short-term ventilator such as 2-3 days with subsequent removal and allowing her
to pass if she could not come off in a reasonable amount of time-specifically 2-3 days-family members there during this conversation
From a perioperative risk assessment, she would be high
Appetite improving, she is working on PO intake to avoid procedure
Cardiology following-correspondence reviewed-signing off 09/29/2023
Atrial fibrillation rate control
Diuresis as tolerated-serum creatinine has increased
Monitor renal function, electrolytes, intake/output, lower extremity edema and weight
Replace electrolytes as needed
Echocardiogram--Severe tricuspid regurgitation with severe pulmonary hypertension noted.
Cultures reviewed
Augmentin continues
Follow hemoglobin
Transfuse if needed
Monitor blood sugar
Insulin supplementation as needed
Monitor renal function
Consider nephrology evaluation if renal function worsens
DVT prophylaxis-on Eliquis
Nutrition-being addressed by gastroenterology
Early mobilization/physical therapy
Outpatient pulmonary [id number] at [facility] [facility]
Reviewed plan of care with patient and family at bedside today for additional time
Diagnostic data:
Chest x-ray 10/19/2022-NAD
Chest x-ray 09/26/2023-small bilateral pleural effusions right greater than left
CT head 09/28/2023-no acute intracranial abnormalities
Brain MRI 11/08-embolic stroke left middle cerebral artery
ECHO 09/30/23- Normal biventricular size and systolic function without regional wall motion�abnormality.�Moderate� mitral regurgitation.�Trace aortic regurgitation.�Severe tricuspid regurgitation with severe pulmonary hypertension.�No prior study
available for comparison.
Subjective Data
-
Date of Service:
Date of Service: October 02, 2023
Chief Complaint: Pulmonary Follow Up
Subjective:
patient seen and examined, no acute events ON
notes that her appetite has slowly been improving
Objective Data
Data Reviewed
Vital Signs / I&O / Oxygen:
Vital Signs
Temp Pulse Resp BP Pulse Ox
97.9 F 92 18 162/82 99
10/02/23 07:02 10/02/23 07:22 10/02/23 07:22 10/02/23 07:02 10/02/23 07:22
Intake and Output
10/01/23 10/02/23 10/03/23
06:59 06:59 06:59
Intake Total 7570 / 7570 2640 / 2640
Balance 7570 / 7570 2640 / 2640
SaO2 99
Nasal Cannula flow liters per 3
minute
Physical Exam
General: Comfortable, Poor Appetite and Other (NAD/cachectic appearing)
HEENT: Normocephalic, Anicteric and Moist Mucous Membranes
Cardiovascular: S1-S2 and Regular Rhythm
Respiratory: Clear (overall decreased) and Non-Labored Respirations
GI: Soft, Non Distended and Non Tender
Neurology: Awake, Alert, Oriented, AO x 3, No Motor Deficits and Depressed
Skin: Warm, Dry and Good Color
Labs/Micro/Reports
Lab Data
10/02/23 05:38
10/02/23 05:38
--- NOTE | 2023-10-02 09:21 | W.PN.GI.CBS2 ---
Addendum entered and electronically signed by John Melgoza MD 10/02/23 09:39:
I saw and examined the patient.
The PA's note was reviewed and I agree with the note.
Comment:
Patient is tolerating breakfast this am. Will defer PEG/J as planned previously. Has OP f/u scheduled on 10/24. Will s/o, pls call with questions.
Original Note:
Today's Communication / Plan
-
Etiology of decreased appetite, SMA, delayed gastric emptying, advanced lung disease vs other
pt doing well with breakfast this am 10-100 % intakes recorded
discussed again with patient for feeding tube -- high risk for procedure given pulm status and pulm HTN and pt still wishes to hold off
cont minced and moist with ensure TID
add enlive apple to diet
Pt remain on Eliquis
cont PPI
Pt scheduled 10/24 at noon follow up with Dr. Simon to assess follow up after discharge
10/01 reviewed she should have OP follow up with known pulm MD at [place] to review status and discussed marijuana hyperemesis disorder with recent start of use prior to admission
cont to monitor dietary intakes
Assessment / Plan
-
Pt is an 83yo with hx Afib on Eliquis, RA on Humira, HTN, HLD, COPD and prior appe with onset of nausea and vomiting.� On admission preliminary CT with distended stomach with narrowing of angiomesenteric angle with concern for SMA syndrome. In
reviewing with patient she has had about 30-40 lb wt loss over several years.� upper GI with small bowel follow-through again shows markedly delayed gastric emptying with dilated duodenum transitioning across the midline at the expected area of the
SMA to decompressed for portion of the duodenum, with some mildly delayed transit distally though no significant dilation.�asked to follow for ongoing decreased oral intake. G/J vs J as alternative feeding discussed at length during admission. Pt
with slow increased intakes during admission.
Plan:
Suspicion for SMA syndrome vs other process with advanced lung disease with wt loss, delayed gastric emptying
advanced lung disease/COPD with pulm HTN on echo
recent Marijuana use
-GERD on Aciphex
-wt loss
-recent start of medical Marijuana
other medical problems:
-afib on Eliquis
-RA in Humira
-HTN
-hyperlipidemia
-Prior appe
-hx prior tobacco use
PLAN:
Etiology of decreased appetite, SMA, delayed gastric emptying, advanced lung disease vs other
pt doing well with breakfast this am 10-100 % intakes recorded
discussed again with patient for feeding tube -- high risk for procedure given pulm status and pulm HTN and pt still wishes to hold off
cont minced and moist with ensure TID
add enlive apple to diet
Pt remain on Eliquis
cont PPI
Pt scheduled 10/24 at noon follow up with Dr. Simon to assess follow up after discharge
10/01 reviewed she should have OP follow up with known pulm MD at [place] to review status and discussed marijuana hyperemesis disorder with recent start of use prior to admission
cont to monitor dietary intakes
Subjective
Subjective
Date of Service: October 02, 2023
10/01 brown stool on moist and minced diet-- tolerating breakfast this am and already drinking over 1/2 of am supplement
Objective
Data Reviewed
Laboratory Data:
Laboratory Results
10/02/23 05:38
10/02/23 05:38
Laboratory Results
Total Bilirubin 0.7 mg/dl (0.2-1.3) 09/25/23 03:43
AST 27 U/L (14-36) 09/25/23 03:43
ALT 12 U/L (0-35) 09/25/23 03:43
Alkaline Phosphatase 97 U/L (38-126) 09/25/23 03:43
Lipase 34 U/L (23-300) 09/25/23 03:43
Vital Signs and I&O:
Vital Signs
Temp Pulse Resp BP Pulse Ox
97.9 F 92 18 162/82 99
10/02/23 07:02 10/02/23 07:22 10/02/23 07:22 10/02/23 07:02 10/02/23 07:22
I&O
10/01/23 10/02/23 10/03/23
06:59 06:59 06:59
Intake Total 7570 / 7570 2640 / 2640
Balance 7570 / 7570 2640 / 2640
Physical Exam
Physical Exam
HEENT: Anicteric and Moist mucous membranes
Cardiology: Normal Sinus Rhythm
Pulmonary: Clear
GI: Soft, Non Distended and Non Tender
Extremities: No Edema
Neuro: Non Focal
--- NOTE | 2023-10-02 10:32 | W.PN.UPDATE ---
Update Note
Progress Note Update
patient seen chart reviewed. spoke w nursing and with dr cabrera. the patient reports she is feeling better. she ate all of her breakfast and was sipping ensure. she is not so thrilled about the pureed diet. we talked about small frequent meals and
perhaps foods that are soft and easy to ingest that may not require puree. she is not in favor of a feeding tube; it seems she has made that clear and it is my impression that she is competent to make medical decisions on her own behalf. she does
admit she is anxious. she feels buspar helps. she had taken 5 mg tid now 10 mg bid. there is room to go up on that dose. i did have some concerns re trazodone and orthostasis but she has taken it for a long time and has never experienced dizziness.
she has never taken xanax. it was suggested but she did not take it. we talked about the negatives of benzos in general. dr paul suggested breathing techniques to help w anxiety which we reviewed. also suggested she try to divert her attention w
coloring, puzzles, crosswords. will bring her some material later today. will follow
[2023-10-02] MEDS: ATIVAN 0.5 MG IV (11:15)
--- NOTE | 2023-10-02 11:38 | W.PN.HOSP.TC ---
Addendum entered and electronically signed by Jd Corey MD 10/02/23 15:44:
updated over the phone
Original Note:
Today's Communication/Plan
-
Monitor vitals
See plan
Patient is able to tolerate minced and moist diet. GI and surgery not planning on any intervention
dc planning; patient appears to be interested in SNF
severe copd and pulmonary HTN
wean steroids as able per pulm
Assessment / Plan
Assessment / Plan
Nausea vomiting with worsening reflux.
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 Upper GI series with small bowel follow-through also raises concern about duodenal compression and SMA syndrome.
She is delayed gastric emptying unclear if it is because of external compression of duodenum or motility problem.
Severe gastric reflux noted on upper GI series
GI and surgery following -now advanced to minced and moist with ensure; if patient able to tolerate then likely can persue further care outpatient. Spoke with patient in detail and she doesnt want to persue feeding tube if it requires intubation.
Patient has severe COPD and pulmonary HTN. Currently tolerating minced and moist diet. GI wants patient to follow-up outpatient
Continue with PPI
Ongoing evaluation for GJ tube insertion for nutrition. appears will need to hold off and pursue this outpatient.
pulmonary following
Spoke with GI 09/30 who also spoke with IR about GJ tube; Our IR at [place] doesnt do GJ tube. GI also spoke with IR at [facility] who wants patient to be intubated for GJ tube. Surgery recommending NJ tube and if patient tolerates then J tube. GI
doesnt think patient will get EGD without intubation at this time
Rapid atrial fibrillation-hemodynamically stable. Improved heart rate patient known to have permanent atrial fibrillation. She on beta-edilma and Cardizem . Cardiology following
Shortness of breath- chest x-ray with mild small bilateral pleural effusions. No evidence of pulmonary edema. Suspect multifactorial-atrial fibrillation, COPD flare, anxiety .
COPD-with mild flare . Currently not bronchospastic. Continue with Xopenex nebulizers. Wean steroids further-changed to oral prednisone 09/28
Chronic hypoxic respiratory insufficiency-patient on home O2-continue with 3 L of oxygen which is her home O2 FiO2
pulmonary following; per pulmonary patient is high risk for perioperative pulmonary complications
Echo 09/30 with severe pulmonary hypertension
mild hyperkalemia
resolved
Hyponatremia
monitor
Leukocytosis noted-patient clinically feels better from a breathing.
Suspect leukocytosis may be related to steroids. She is afebrile. Nontoxic looking. Continue to follow.
CRISTÓBAL-resolved
Klebsiella UTI
dc further abx
History of CVA- Last episode 10/2022 -felt thromboembolic- on Eliquis [last taken on Saturday evening]. Dr Agustin discussed with GI and surgery-no plans for interventions. Resumed Eliquis .
Essential HTN - cw home meds and follow
RA on Humira
Anxiety disorder-patient on BuSpar along with Xanax at home. She is becoming more anxious around her diagnosis. Continue with Ativan . consult psychiatry.
Moderate protein calorie malnutrition
Full code
Discussed with granddaughter 09/[address] Agustin who is a trauma surgeon at bedside today. She wants to explore the option of IR directed GJ tube insertion if not done short-term TPN for weight gain to help with her SMA syndrome. GI and surger
following. They also want to try Marinol for appetitie.
General: No Apparent Distress
HEENT: Moist Mucous Membranes
Respiratory: Crackles (Bibasilar) and Non Labored Respirations; Negative Wheezes
Cardiac: S1/S2 and Irregular Rhythm; Negative Tachycardic
GI: Soft, Nondistended, Normal Bowel Sounds and Tender (Some discomfort in the epigastric area)
Neuro: AO x 3
Psych: Calm; Negative Confused or Agitated
Anticipated Discharge: Within 24 hours
Subjective/Interval History
-
Date of Service: October 02, 2023
denies pain
Objective Data
-
Labs:
Laboratory Results
10/02/23
05:38
WBC 15.4 H
Hgb 10.7 L
Hct 31.9 L
Plt Count 307
Sodium 134 L
Potassium 4.1
Chloride 98
Carbon Dioxide 30
BUN 37 H
Creatinine 1.0
Glucose 101 H
Calcium 8.6
Vital Signs:
Vital Signs
Temp Pulse Resp BP Pulse Ox
97.7 F 109 16 163/84 97
10/02/23 11:14 10/02/23 11:15 10/02/23 11:14 10/02/23 11:15 10/02/23 11:14
I&O
10/01/23 10/02/23 10/03/23
06:59 06:59 06:59
Intake Total 7570 / 7570 2640 / 2640
Balance 7570 / 7570 2640 / 2640
[2023-10-02 12:05] LABS: Glucose - Point of Care 132 mg/dl (70-99)
--- NOTE | 2023-10-02 16:00 | WOUNDNOTE ---
[facility] RN NOTE: Reviewed chart and met with patient who was sitting in chair with air cushion. Patient's RN Paris present during assessment and reported new stage 2 to sacrum today. Chart review and patient report confirm poor intake but thinks its
improving. Patient reports feeling weak and turning and moving less. Patient has a stage 2 PI of linear buttock/sacrum. There was a scant amount of serous drainage on old dressing. The wound was cleaned and covered with 5 layer silicone border
foam. Heels intact. Spine with superficial wounds upon admission (abrasion) and the silicone border foam was maintained. Plan is to change bed to [facility] Air bed. Housekeeping called for new bed. Will update orders. TT with CM and requested air
bed at [facility]. Will continue to follow as needed.
[2023-10-02 16:38] LABS: Glucose - Point of Care 140 mg/dl (70-99)
[2023-10-02] MEDS: LIPITOR 10 MG PO (17:01)
[2023-10-02] MEDS: MIRALAX 17 GRAMS PO (17:02)
--- NOTE | 2023-10-02 17:26 | CM ---
PT recommendation for SNF. Patient hand daughter have been given [employer] list and will choose preferences.
[2023-10-02] MEDS: TOPROL XL 50 MG PO (21:30)
[2023-10-02] MEDS: DESYREL 150 MG PO (21:30)
[2023-10-02 22:05] LABS: Glucose - Point of Care 142 mg/dl (70-99)
[2023-10-03] VITALS (8 sets, daily range): BP systolic 121–181; BP diastolic 63–88; BMI 19.8
[2023-10-03 06:23] LABS: % Basophils 0.3 % (0-2); % Eosinophils 0.1 % (0-6); % Lymphocytes 14.9 % (20.5-51.1); % Monocytes 7.4 % (1.7-9.3); % Neutrophils 73.3 % (42.2-75.2); Absolute Basophils 0.1 10^3/uL (0-0.2); Absolute Immature Granulocytes 0.6 10^3/uL (0-0.05); Absolute Lymphocytes 2.3 10^3/uL (1.2-3.4); Absolute Monocytes 1.1 10^3/uL (0.1-0.6); Absolute Neutrophils 11.1 10^3/uL (1.4-6.5); Hematocrit 30.1 % (37.0-47.0); Hemoglobin 10.2 g/dL (12.0-16.0); Mean Corp Hgb Conc. 33.9 g/dL (33.0-37.0); Mean Corpuscular Hgb 30.6 pg (27.0-31.0); Mean Corpuscular Volume 90.4 fL (81.0-99.0); Mean Platelet Volume 10.3 fL (7.4-10.4); Nucleated Red Blood Cells % 0 %; Platelet Count 305 10^3/uL (130-400); Red Blood Cell Count 3.33 10^6/uL (4.20-5.40); Red Cell Dist. Width 15.6 % (11.5-14.5); White Blood Cell Count 15.1 10^3/uL (4.8-10.8)
[2023-10-03 07:06] LABS: Blood Urea Nitrogen 44 mg/dl (7-17); Calcium 8.5 mg/dl (8.4-10.2); Carbon Dioxide 30 mmol/L (22-30); Chloride 96 mmol/L (98-107); Estimated Creatinine Clearance 33 ml/min; Glucose 92 mg/dl (70-99); Potassium 4.5 mmol/L (3.5-5.1); Sodium 133 mmol/L (135-145); eGFR 49.86
[2023-10-03] MEDS: SPIRIVA RESPIMAT 2.5 MCG 2 PUFF INH (07:20)
[2023-10-03] MEDS: XOPENEX 1.25 MG INHALANT SOLUTION INH ×3 (07:20→21:06)
[2023-10-03] MEDS: ADVAIR HFA 115/21 MCG INHALER 2 PUFF INH ×2 (07:20→20:59)
[2023-10-03 07:55] LABS: Glucose - Point of Care 104 mg/dl (70-99)
[2023-10-03] MEDS: NOVOLOG FLEXPEN-LOW RESISTANCE SC (08:36)
[2023-10-03] MEDS: DELTASONE 30 MG PO (08:43)
[2023-10-03] MEDS: CARDIZEM CD 240 MG PO (08:43)
[2023-10-03] MEDS: MARINOL 2.5 MG PO ×3 (08:43→21:33)
[2023-10-03] MEDS: BUSPAR 10 MG PO ×2 (08:43→21:33)
[2023-10-03] MEDS: ELIQUIS 2.5 MG PO ×2 (08:43→21:33)
[2023-10-03] MEDS: PROTONIX IV 40 MG IV (08:44)
[2023-10-03] MEDS: NSS (PRESERVATIVE FREE) 10 ML IV (08:44)
--- NOTE | 2023-10-03 11:05 | CM ---
PT recommendation for SNF for [facility]. Patient amenable. Patient and daughter have chosen 8 preferences. Referrals to be sent at this time.
--- NOTE | 2023-10-03 11:20 | W.PN.HOSP.TC ---
Today's Communication/Plan
-
Monitor vital signs
see plan
Slowly improving and tolerating diet
Discharge planning, needs SNF
Assessment / Plan
Assessment / Plan
Nausea vomiting with worsening reflux.
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 Upper GI series with small bowel follow-through also raises concern about duodenal compression and SMA syndrome.
She is delayed gastric emptying unclear if it is because of external compression of duodenum or motility problem.
Severe gastric reflux noted on upper GI series
GI and surgery following -now advanced to minced and moist with ensure; if patient able to tolerate then likely can persue further care outpatient. Spoke with patient in detail and she doesnt want to persue feeding tube if it requires intubation.
Patient has severe COPD and pulmonary HTN. Currently tolerating minced and moist diet. GI wants patient to follow-up outpatient
Continue with PPI
Ongoing evaluation for GJ tube insertion for nutrition. appears will need to hold off and pursue this outpatient.
pulmonary following
Spoke with GI 09/30 who also spoke with IR about GJ tube; Our IR at [place] doesnt do GJ tube. GI also spoke with IR at [facility] who wants patient to be intubated for GJ tube. Surgery recommending NJ tube and if patient tolerates then J tube. GI
doesnt think patient will get EGD without intubation at this time. Nonetheless patient is now improving and is tolerating diet
Rapid atrial fibrillation-hemodynamically stable. Improved heart rate patient known to have permanent atrial fibrillation. She on beta-edilma and Cardizem . Cardiology following
Shortness of breath- chest x-ray with mild small bilateral pleural effusions. No evidence of pulmonary edema. Suspect multifactorial-atrial fibrillation, COPD flare, anxiety .
COPD-with mild flare . Currently not bronchospastic. Continue with Xopenex nebulizers. Wean steroids further-changed to oral prednisone 09/28
Chronic hypoxic respiratory insufficiency-patient on home O2-continue with 3 L of oxygen which is her home O2 FiO2
pulmonary following; per pulmonary patient is high risk for perioperative pulmonary complications
Echo 09/30 with severe pulmonary hypertension
mild hyperkalemia
resolved
Hyponatremia
monitor
Leukocytosis noted-patient clinically feels better from a breathing.
Suspect leukocytosis may be related to steroids. She is afebrile. Nontoxic looking. Continue to follow.
CRISTÓBAL-resolved
Klebsiella UTI
dc further abx
History of CVA- Last episode 10/2022 -felt thromboembolic- on Eliquis [last taken on Saturday evening]. Dr Agustin discussed with GI and surgery-no plans for interventions. Resumed Eliquis .
Essential HTN - cw home meds and follow
RA on Humira
Anxiety disorder-patient on BuSpar along with Xanax at home. She is becoming more anxious around her diagnosis. Continue with Ativan . consult psychiatry.
Moderate protein calorie malnutrition
Full code
Discussed with granddaughter 09/[address] Agustin who is a trauma surgeon at bedside today. She wants to explore the option of IR directed GJ tube insertion if not done short-term TPN for weight gain to help with her SMA syndrome. GI and surger
following. They also want to try Marinol for appetitie.
General: No Apparent Distress
HEENT: Moist Mucous Membranes
Respiratory: Crackles (Bibasilar) and Non Labored Respirations; Negative Wheezes
Cardiac: S1/S2 and Irregular Rhythm; Negative Tachycardic
GI: Soft, Nondistended, Normal Bowel Sounds and Tender (Some discomfort in the epigastric area)
Neuro: AO x 3
Psych: Calm; Negative Confused or Agitated
Anticipated Discharge: Today
Subjective/Interval History
-
Date of Service: October 03, 2023
denies pain
Objective Data
-
Labs:
Laboratory Results
10/03/23
05:24
WBC 15.1 H
Hgb 10.2 L
Hct 30.1 L
Plt Count 305
Sodium 133 L
Potassium 4.5
Chloride 96 L
Carbon Dioxide 30
BUN 44 H
Creatinine 1.1 H
Glucose 92
Calcium 8.5
Vital Signs:
Vital Signs
Temp Pulse Resp BP Pulse Ox
97.9 F 60 18 141/65 100
10/03/23 08:13 10/03/23 08:13 10/03/23 08:13 10/03/23 10:38 10/03/23 08:13
I&O
10/02/23 10/03/23 10/04/23
06:59 06:59 06:59
Intake Total 2640 / 2640 1140 / 1140
Balance 2640 / 2640 1140 / 1140
[2023-10-03 11:47] LABS: Glucose - Point of Care 160 mg/dl (70-99)
--- NOTE | 2023-10-03 11:50 | W.PN.UPDATE ---
Update Note
Progress Note Update
patient seen chart reviewed. daughter at bedside. we addressed a number of issues today. patient taking buspar for anxiety. she also uses trazodone at hs. discussed hyponatremia not currently an issue but it has been an issue in the past. it can
occur w combo of buspar and trazodone so it will need to be watched as an out patient. also discussed that if ssri or snri are suggested they need to be aware these are a risk for low sodium. discussed transition to snf then patient and family
considering an assisted living situation for her and which i feel is a good thought. the importance of keeping moving was addressed as well as PT to improve strength balance etc. diet was discussed again including the importance of
nutritious easy to get down meals. patient is doing better. anxiety is better. buspar can be inc after dc as long as sodium is monitored. she will leave in the next day or two. psych will sign off.
[2023-10-03] MEDS: NOVOLOG FLEXPEN-LOW RESISTANCE 1 UNITS SC ×2 (12:02→16:39)
[2023-10-03] MEDS: APRESOLINE 5 MG IV (16:00)
[2023-10-03] MEDS: ATIVAN 0.5 MG IV (16:28)
[2023-10-03 16:37] LABS: Glucose - Point of Care 168 mg/dl (70-99)
[2023-10-03] MEDS: CARDIZEM 10 MG IV (17:19)
[2023-10-03] MEDS: LIPITOR 10 MG PO (17:20)
[2023-10-03] MEDS: MIRALAX 17 GRAMS PO (17:22)
--- NOTE | 2023-10-03 18:47 | PTCARENOTE ---
Patient drank three ensure drinks throughout the day, ate oatmeal and drank milk for breakfast, ate 100% of lunch, and about 90% of dinner (did not eat custard)
--- NOTE | 2023-10-03 19:04 | PTCARENOTE ---
Patient's HR noted to be in the 140s on the night monitor, patient rhythm atrial fibrillation; Dr. Corey notified; ECG performed which confirmed afib RVR; Stat dose of cardizem ordered and given per physician order
[2023-10-03] MEDS: TOPROL XL 50 MG PO (21:33)
[2023-10-03] MEDS: DESYREL 150 MG PO (21:34)
[2023-10-03] MEDS: DESYREL 12.5 MG PO (21:41)
[2023-10-03 21:50] LABS: Glucose - Point of Care 135 mg/dl (70-99)
[2023-10-04] VITALS (7 sets, daily range): BP systolic 128–156; BP diastolic 63–87; PULSE 110; O2SAT 98; BMI 19.9
[2023-10-04 06:28] LABS: % Basophils 0.3 % (0-2); % Eosinophils 0.1 % (0-6); % Immature Granulocytes 4.1 % (0-0.5); % Lymphocytes 11.7 % (20.5-51.1); % Monocytes 8.6 % (1.7-9.3); % Neutrophils 75.2 % (42.2-75.2); Absolute Basophils 0.1 10^3/uL (0-0.2); Absolute Immature Granulocytes 0.7 10^3/uL (0-0.05); Absolute Lymphocytes 1.9 10^3/uL (1.2-3.4); Absolute Monocytes 1.4 10^3/uL (0.1-0.6); Absolute Neutrophils 12.2 10^3/uL (1.4-6.5); Hematocrit 28.7 % (37.0-47.0); Hemoglobin 9.8 g/dL (12.0-16.0); Mean Corp Hgb Conc. 34.1 g/dL (33.0-37.0); Mean Corpuscular Hgb 30.9 pg (27.0-31.0); Mean Corpuscular Volume 90.5 fL (81.0-99.0); Mean Platelet Volume 10.2 fL (7.4-10.4); Nucleated Red Blood Cells % 0 %; Platelet Count 292 10^3/uL (130-400); Red Blood Cell Count 3.17 10^6/uL (4.20-5.40); Red Cell Dist. Width 15.9 % (11.5-14.5); White Blood Cell Count 16.2 10^3/uL (4.8-10.8)
[2023-10-04 06:56] LABS: Blood Urea Nitrogen 54 mg/dl (7-17); Calcium 8.2 mg/dl (8.4-10.2); Carbon Dioxide 30 mmol/L (22-30); Chloride 99 mmol/L (98-107); Estimated Creatinine Clearance 33 ml/min; Glucose 76 mg/dl (70-99); Potassium 4.5 mmol/L (3.5-5.1); Sodium 132 mmol/L (135-145); eGFR 49.86
[2023-10-04 07:53] LABS: Glucose - Point of Care 112 mg/dl (70-99)
[2023-10-04] MEDS: ADVAIR HFA 115/21 MCG INHALER 2 PUFF INH ×2 (08:21→19:58)
[2023-10-04] MEDS: SPIRIVA RESPIMAT 2.5 MCG 2 PUFF INH (08:21)
[2023-10-04] MEDS: XOPENEX 1.25 MG INHALANT SOLUTION INH ×3 (08:21→19:57)
[2023-10-04] MEDS: MARINOL 2.5 MG PO ×3 (09:11→21:33)
[2023-10-04] MEDS: CARDIZEM CD 240 MG PO (09:11)
[2023-10-04] MEDS: BUSPAR 10 MG PO ×2 (09:11→19:58)
[2023-10-04] MEDS: PROTONIX IV 40 MG IV (09:12)
[2023-10-04] MEDS: DELTASONE 30 MG PO (09:12)
[2023-10-04] MEDS: ELIQUIS 2.5 MG PO ×2 (09:12→19:58)
[2023-10-04] MEDS: NOVOLOG FLEXPEN-LOW RESISTANCE SC ×2 (09:13→11:47)
[2023-10-04] MEDS: NSS (PRESERVATIVE FREE) 10 ML IV (09:13)
[2023-10-04] MEDS: FLUSH (NSS) 2 FLUSH IV (09:14)
--- NOTE | 2023-10-04 10:47 | W.PN.HOSP.TC ---
Today's Communication/Plan
-
monitor vitals
see plan
dc planning
monitor leukocytosis; no fever
encourage PO intake; been improving
Assessment / Plan
Assessment / Plan
Nausea vomiting with worsening reflux.
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 Upper GI series with small bowel follow-through also raises concern about duodenal compression and SMA syndrome.
She is delayed gastric emptying unclear if it is because of external compression of duodenum or motility problem.
Severe gastric reflux noted on upper GI series
GI and surgery following -now advanced to minced and moist with ensure; if patient able to tolerate then likely can persue further care outpatient. Spoke with patient in detail and she doesnt want to persue feeding tube if it requires intubation.
Patient has severe COPD and pulmonary HTN. Currently tolerating minced and moist diet. GI wants patient to follow-up outpatient
Continue with PPI
Ongoing evaluation for GJ tube insertion for nutrition. appears will need to hold off and pursue this outpatient.
pulmonary following
Spoke with GI 09/30 who also spoke with IR about GJ tube; Our IR at [facility] doesnt do GJ tube. GI also spoke with IR at [facility] who wants patient to be intubated for GJ tube. Surgery recommending NJ tube and if patient tolerates then J tube. GI
doesnt think patient will get EGD without intubation at this time. Nonetheless patient is now improving and is tolerating diet
Rapid atrial fibrillation-hemodynamically stable. Improved heart rate patient known to have permanent atrial fibrillation. She on beta-edilma and Cardizem . Cardiology following
Shortness of breath- chest x-ray with mild small bilateral pleural effusions. No evidence of pulmonary edema. Suspect multifactorial-atrial fibrillation, COPD flare, anxiety .
COPD-with mild flare . Currently not bronchospastic. Continue with Xopenex nebulizers. Wean steroids further-changed to oral prednisone 09/28
Chronic hypoxic respiratory insufficiency-patient on home O2-continue with 3 L of oxygen which is her home O2 FiO2
pulmonary following; per pulmonary patient is high risk for perioperative pulmonary complications
Echo 09/30 with severe pulmonary hypertension
Decrease prednisone to 30 mg
mild hyperkalemia
resolved
Hyponatremia
monitor
Leukocytosis noted-patient clinically feels better from a breathing.
Suspect leukocytosis may be related to steroids. She is afebrile. Nontoxic looking. Continue to follow.
CRISTÓBAL-resolved
Klebsiella UTI
dc further abx
History of CVA- Last episode 10/2022 -felt thromboembolic- on Eliquis [last taken on Saturday evening]. Dr Agsutin discussed with GI and surgery-no plans for interventions. Resumed Eliquis .
Essential HTN - cw home meds and follow
RA on Humira
Anxiety disorder-patient on BuSpar along with Xanax at home. She is becoming more anxious around her diagnosis. Continue with Ativan . consult psychiatry.
Moderate protein calorie malnutrition
Full code
Discussed with granddaughter 09/[address] Agustin who is a trauma surgeon at bedside today. She wants to explore the option of IR directed GJ tube insertion if not done short-term TPN for weight gain to help with her SMA syndrome. GI and surger
following. They also want to try Marinol for appetitie.
General: No Apparent Distress
HEENT: Moist Mucous Membranes
Respiratory: Crackles (Bibasilar) and Non Labored Respirations; Negative Wheezes
Cardiac: S1/S2 and Irregular Rhythm; Negative Tachycardic
GI: Soft, Nondistended, Normal Bowel Sounds and Tender (Some discomfort in the epigastric area)
Neuro: AO x 3
Psych: Calm; Negative Confused or Agitated
Anticipated Discharge: Today
Subjective/Interval History
-
Date of Service: October 04, 2023
denies pain
Objective Data
-
Labs:
Laboratory Results
10/04/23
04:26
WBC 16.2 H
Hgb 9.8 L
Hct 28.7 L
Plt Count 292
Sodium 132 L
Potassium 4.5
Chloride 99
Carbon Dioxide 30
BUN 54 H
Creatinine 1.1 H
Glucose 76
Calcium 8.2 L
Vital Signs:
Vital Signs
Temp Pulse Resp BP Pulse Ox
97.9 F 76 16 128/66 97
10/04/23 07:11 10/04/23 08:27 10/04/23 08:27 10/04/23 07:11 10/04/23 08:27
I&O
10/03/23 10/04/23 10/05/23
06:59 06:59 06:59
Intake Total 1140 / 1140 1200 / 1200
Balance 1140 / 1140 1200 / 1200
[2023-10-04 11:40] LABS: Glucose - Point of Care 115 mg/dl (70-99)
--- NOTE | 2023-10-04 12:25 | CM ---
Addendum entered by Arelis Perea 10/04/23 13:19:
Pt and daughter concerned about semi-private room at [facility]
Josiane from [facility] returned call - able to accept pt tomorrow 10/05
Spoke with pt and her daughter Kat - agreed to [facility]
Plan - d/c to [facility] on 10/05/2023
Report - [phone]
Fax - [phone]
Original Note:
Chart reviewed. Spoke with pt and her at bedside
Pt medically ready for d/c
Accepted at [facility] [place] -
Called and LM at [facility] and [facility] inquiring about bed availability/able to take pt
Called Kaley at [facility] - can accept
Pt/ aware - daughter Kat [phone] to speak with Kaley at [facility]
--- NOTE | 2023-10-04 15:48 | PN.CDI ---
CDI
- -
CDI:
Physician Documentation Request
Admit Date: 09/25/23 05:40
Dear Doctor Madhav,
Patient admitted for SMA syndrome.
10/02 Wound Care Note: 'Patient has a stage 2 PI of linear buttock/sacrum. There was a scant amount of serous drainage on old dressing.'
Physician documentation of the type and location of wounds is required for compliant documentation. Based on the above clinical findings and your assessment, please provide the following in your progress note:
1. Location of the ulcer/wound, including laterality.
2. Type (etiology) of ulcer/wound:
- Pressure (decubitus) ulcer
- Other
- Unable to determine
3. If a pressure ulcer, please also include the stage* of the ulcer:
- Stage 1 - Skin intact, non-blanchable redness
- Stage 2 - Partial thickness loss of dermis, includes intact or open blister
- Stage 3 - Full thickness tissue not including bone, tendon or muscle
- Stage 4 - Full thickness tissue loss, including exposed bone, tendon or muscle
- Unstageable - Full thickness loss in which the base of the ulcer is covered by slough (yellow, montiel, zamarripa, green or brown) and/or eschar (montiel, brown or black) in the wound bed.
- Unable to determine
Use of terms such as suspected, likely, concern for, or probable (associated with a specific diagnosis that is being evaluated, monitored, or treated as if it exists) are acceptable and can be coded in the inpatient setting, when documented at the
time of discharge.
Thank you,
Claudine Wilson RN, BSN
CDI Specialist
Available via [employer] text
Please use your independent medical judgment in providing your response.
*Source: National Pressure Ulcer Advisory Panel (NPUAP)
[2023-10-04 16:51] LABS: Glucose - Point of Care 180 mg/dl (70-99)
[2023-10-04] MEDS: NOVOLOG FLEXPEN-LOW RESISTANCE 1 UNITS SC (17:27)
[2023-10-04] MEDS: MIRALAX 17 GRAMS PO (17:28)
[2023-10-04] MEDS: LIPITOR 10 MG PO (17:28)
[2023-10-04] MEDS: DESYREL 150 MG PO (21:33)
[2023-10-04] MEDS: TOPROL XL 50 MG PO (21:33)
[2023-10-04 21:41] LABS: Glucose - Point of Care 139 mg/dl (70-99)
[2023-10-05 03:10] VITALS: BP 155/80
[2023-10-05 07:42] LABS: Glucose - Point of Care 123 mg/dl (70-99)
[2023-10-05 07:50] VITALS: BP 148/66
[2023-10-05] MEDS: NOVOLOG FLEXPEN-LOW RESISTANCE SC ×2 (07:51→11:52)
[2023-10-05] MEDS: BUSPAR 10 MG PO (08:04)
[2023-10-05] MEDS: DELTASONE 20 MG PO (08:04)
[2023-10-05] MEDS: MARINOL 2.5 MG PO ×2 (08:04→15:08)
[2023-10-05] MEDS: ELIQUIS 2.5 MG PO (08:05)
[2023-10-05] MEDS: PROTONIX IV 40 MG IV (08:05)
[2023-10-05] MEDS: NSS (PRESERVATIVE FREE) 10 ML IV (08:05)
[2023-10-05] MEDS: CARDIZEM CD 240 MG PO (08:05)
[2023-10-05] MEDS: SPIRIVA RESPIMAT 2.5 MCG 2 PUFF INH (08:12)
[2023-10-05] MEDS: XOPENEX 1.25 MG INHALANT SOLUTION INH ×2 (08:12→13:42)
[2023-10-05] MEDS: ADVAIR HFA 115/21 MCG INHALER 2 PUFF INH (08:13)
[2023-10-05 08:37] LABS: COVID-19 Antigen Negative (Negative)
[2023-10-05 09:14] LABS: % Basophils 0.3 % (0-2); % Eosinophils 0.2 % (0-6); % Lymphocytes 15.8 % (20.5-51.1); % Monocytes 7.8 % (1.7-9.3); % Neutrophils 71.9 % (42.2-75.2); Absolute Basophils 0.1 10^3/uL (0-0.2); Absolute Immature Granulocytes 0.8 10^3/uL (0-0.05); Absolute Monocytes 1.5 10^3/uL (0.1-0.6); Absolute Neutrophils 13.5 10^3/uL (1.4-6.5); Hematocrit 33.2 % (37.0-47.0); Hemoglobin 11.1 g/dL (12.0-16.0); Mean Corp Hgb Conc. 33.4 g/dL (33.0-37.0); Mean Corpuscular Hgb 30.8 pg (27.0-31.0); Mean Corpuscular Volume 92.2 fL (81.0-99.0); Mean Platelet Volume 10.1 fL (7.4-10.4); Nucleated Red Blood Cells % 0 %; Platelet Count 335 10^3/uL (130-400); Red Cell Dist. Width 15.9 % (11.5-14.5); White Blood Cell Count 18.8 10^3/uL (4.8-10.8)
[2023-10-05] MEDS: ATIVAN 0.5 MG IV (09:25)
[2023-10-05 09:37] LABS: Blood Urea Nitrogen 51 mg/dl (7-17); Calcium 9.1 mg/dl (8.4-10.2); Carbon Dioxide 30 mmol/L (22-30); Chloride 97 mmol/L (98-107); Estimated Creatinine Clearance 33 ml/min; Glucose 120 mg/dl (70-99); Potassium 3.9 mmol/L (3.5-5.1); Sodium 134 mmol/L (135-145); eGFR 49.86
--- NOTE | 2023-10-05 10:27 | W.PN.HOSP.TC ---
Addendum entered and electronically signed by Jd Corey MD 10/05/23 10:31:
Patient has a stage 2 PI of linear buttock/sacrum
Time of discharge 37 minutes
Original Note:
Today's Communication/Plan
-
Monitor vital signs and see plan
Discharge today if has placement
Monitor leukocytosis
Prednisone currently at 20, decrease by 10 every 72 hours
Continue with diltiazem, metoprolol
Assessment / Plan
Assessment / Plan
Nausea vomiting with worsening reflux.
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 Upper GI series with small bowel follow-through also raises concern about duodenal compression and SMA syndrome.
She is delayed gastric emptying unclear if it is because of external compression of duodenum or motility problem.
Severe gastric reflux noted on upper GI series
GI and surgery following -now advanced to minced and moist with ensure; if patient able to tolerate then likely can persue further care outpatient. Spoke with patient in detail and she doesnt want to persue feeding tube if it requires intubation.
Patient has severe COPD and pulmonary HTN. Currently tolerating minced and moist diet. GI wants patient to follow-up outpatient
Continue with PPI
Ongoing evaluation for GJ tube insertion for nutrition. appears will need to hold off and pursue this outpatient.
pulmonary following
Spoke with GI 09/30 who also spoke with IR about GJ tube; Our IR at [facility] doesnt do GJ tube. GI also spoke with IR at [place] who wants patient to be intubated for GJ tube. Surgery recommending NJ tube and if patient tolerates then J tube. GI
doesnt think patient will get EGD without intubation at this time. Nonetheless patient is now improving and is tolerating diet
Rapid atrial fibrillation-hemodynamically stable. Improved heart rate patient known to have permanent atrial fibrillation. She on beta-edilma and Cardizem . Cardiology following
Shortness of breath- chest x-ray with mild small bilateral pleural effusions. No evidence of pulmonary edema. Suspect multifactorial-atrial fibrillation, COPD flare, anxiety .
COPD-with mild flare . Currently not bronchospastic. Continue with Xopenex nebulizers. Wean steroids further-changed to oral prednisone 09/28
Chronic hypoxic respiratory insufficiency-patient on home O2-continue with 3 L of oxygen which is her home O2 FiO2
pulmonary following; per pulmonary patient is high risk for perioperative pulmonary complications
Echo 09/30 with severe pulmonary hypertension
Decrease prednisone to 20 mg; dec by every 72hrs
mild hyperkalemia
resolved
Hyponatremia
monitor
Leukocytosis noted-patient clinically feels better from a breathing.
Suspect leukocytosis may be related to steroids. She is afebrile. Nontoxic looking. Continue to follow.
CRISTÓBAL-resolved
Klebsiella UTI
dc further abx
History of CVA- Last episode 10/2022 -felt thromboembolic- on Eliquis [last taken on Saturday evening]. Dr Agustin discussed with GI and surgery-no plans for interventions. Resumed Eliquis .
Essential HTN - cw home meds and follow
RA on Humira
Anxiety disorder-patient on BuSpar along with Xanax at home. She is becoming more anxious around her diagnosis. Continue with Ativan . consult psychiatry.
Moderate protein calorie malnutrition
Full code
Discussed with granddaughter 09/[address] Agustin who is a trauma surgeon at bedside today. She wants to explore the option of IR directed GJ tube insertion if not done short-term TPN for weight gain to help with her SMA syndrome. GI and surger
following. They also want to try Marinol for appetitie.
General: No Apparent Distress
HEENT: Moist Mucous Membranes
Respiratory: Crackles (Bibasilar) and Non Labored Respirations; Negative Wheezes
Cardiac: S1/S2 and Irregular Rhythm; Negative Tachycardic
GI: Soft, Nondistended, Normal Bowel Sounds and Tender (Some discomfort in the epigastric area)
Neuro: AO x 3
Psych: Calm; Negative Confused or Agitated
Anticipated Discharge: Today
Subjective/Interval History
-
Date of Service: October 05, 2023
denies pain
Objective Data
-
Labs:
Laboratory Results
10/05/23 10/05/23
05:49 08:38
WBC Cancelled 18.8 H
Hgb Cancelled 11.1 L
Hct Cancelled 33.2 L
Plt Count Cancelled 335
Sodium Cancelled 134 L
Potassium Cancelled 3.9
Chloride Cancelled 97 L
Carbon Dioxide Cancelled 30
BUN Cancelled 51 H
Creatinine Cancelled 1.1 H
Glucose Cancelled 120 H
Calcium Cancelled 9.1
Vital Signs:
Vital Signs
Temp Pulse Resp BP Pulse Ox
98.1 F 92 16 143/70 100
10/05/23 07:50 10/05/23 08:15 10/05/23 08:15 10/05/23 08:05 10/05/23 08:15
I&O
10/04/23 10/05/23 10/06/23
06:59 06:59 06:59
Intake Total 1200 / 1200 1320 / 1320
Balance 1200 / 1200 1320 / 1320
--- NOTE | 2023-10-05 10:35 | W.DCSUMMARY ---
Discharge Summary
Discharge Data
Date of Admission: 09/25/23
Date of Discharge: 10/05/23
-
Pending Results: No
Hospital Course
83-year-old female with past medical history of CVA, essential hypertension, rheumatoid arthritis, anxiety, pulmonary atrial fibrillation, GERD came to the hospital with nausea vomiting which was likely provoked secondary to worsening acid reflux.
CT scan was done which raises concern of SMA syndrome. Patient was followed up by GI and surgery throughout hospitalization. Patient's symptoms were likely thought were also secondary to delayed gastric emptying. Initially patient was severely
symptomatic and was not able to tolerate diet so feeding tube was entertained. Due to her severe COPD and severe pulmonary hypertension pulmonary was consulted who states patient has very high risk for EGD. IR was also contacted for possible GJ
tube however our IR does not do GJ tube. [facility] IR was also contacted however they wanted patient to be intubated for the GJ. Patient continued to refuse any intubation. While patient was in the hospital she also had shortness of breath which
was likely thought was multifactorial from atrial fibrillation, anxiety, COPD. Patient was initially started on IV steroids which were later transitioned to oral prednisone. For her anxiety she was seen by psychiatrist. Patient also had acute
kidney injury which over time resolved. She also had Klebsiella urinary tract infection for which she was treated with antibiotics. Over time patient GI symptoms started to improve and she was able to tolerate diet. She was evaluated by physical
therapy who recommended SNF. Once her symptoms started to improve, she was then discharged to SNF with instructions to follow-up closely with all her physicians outpatient.
Discharge Plan
-
Patient Disposition: Detention/SNF
Discharge Diagnosis/Procedures: Nausea/vomiting with worsening gastric reflux
Suspected SMA
Shortness of breath likely multifactorial secondary to atrial fibrillation, COPD and anxiety
Hyponatremia
Leukocytosis
Klebsiella urinary tract infection
Acute kidney injury
Dysphagia
Diet: Other diet
Additional Diets: Minced and moist diet
Activity: With assistance and As tolerated
Driving Restrictions: Not until seen by your Dr
Activity Restrictions/Additional Instructions:
Wound Care Instructions Sacrum- Clean with normal saline or soap and water. Apply silicone border foam. Change Q 3 days and PRN if loose or soiled.
Air Mattress
Increase intake of protein and calories
Limit time in chair to 1.5 hours
Air or gel cushion to chair
Keep heels off-loaded with pillows under calves
Turning schedule
20 mg prednisone started 10/05, decrease by 10 mg after 3 days
Referrals:
Carlin Alegria MD [Active] -
Radu Simon MD [Active] - 10/25/23 12:00 pm (with wt loss and nausea with concern for SMA syndrome)
Isai Luo MD [Family Provider] - in less than 1 week
Henry Black MD [Active] -
Varghese Davidson MD [Active] -
Prescriptions:
New
prednisone 10 mg Tablet
20 mg PO DAILY Qty: 0 0RF
trazodone 50 mg Tablet
12.5 mg PO BIDPRN PRN (Reason: anxiety) Qty: 1 0RF
levalbuterol HCl 0.63 mg/3 mL Solution For Nebulization
0.63 mg inhalation R Q6HPRN PRN (Reason: wheeze/shortness of breath) Qty: 0 0RF
dronabinol 2.5 mg Capsule
2.5 mg PO TID Qty: 0 0RF
pantoprazole [Protonix] 40 mg tablet,delayed release (DR/EC)
40 mg PO DAILY Qty: 30 0RF
lorazepam [Ativan] 0.5 mg tablet
0.5 mg PO TID PRN (Reason: anxiety) Qty: 9 0RF
Acid Gone Antacid 95-358 mg/15 mL Suspension
30 ml PO QIDPRN PRN (Reason: reflux) Qty: 0 0RF
Continued
fluticasone propion-salmeterol [Wixela Inhub] 250-50 mcg/dose Blister With Device
1 inh INHALATION R BID
acetaminophen 325 mg Tablet
650 mg PO HSPRN PRN (Reason: mild pain)
polyethylene glycol 3350 [Miralax] 17 gram Powder In Packet
17 g PO QPM
diltiazem HCl 240 mg Capsule,Extended Release 24hr
240 mg PO DAILY
simvastatin 20 mg Tablet
20 mg PO QPM
trazodone 150 mg Tablet
150 mg PO HS
apixaban 2.5 mg Tablet
2.5 mg PO BID
metoprolol succinate 50 mg Tablet Extended Release 24 Hr
50 mg PO HS
furosemide 20 mg Tablet
20 mg PO DAILY PRN (Reason: swelling)
estradiol [Estrace] 0.01 % (0.1 mg/gram) Cream
1 appful VAGINAL .4-5 TIMES A WEEK
Patient Comments:
09/27/2023, pt. applies 4-5/week on varying days.
ondansetron 4 mg Tablet,Disintegrating
4 mg PO Q8H PRN (Reason: nausea)
tiotropium bromide [Spiriva with HandiHaler] 18 mcg Capsule, W/Inhalation Device
2 cap INHALATION R DAILY
Patient Comments:
09/27/2023, pt. states that she takes 2 inhalations daily.
Humira(CF) Pen 40 mg/0.4 mL pen injector kit
40 mg SC Q2W
Changed
buspirone 5 mg Tablet
10 mg PO TID Qty: 0 0RF
Discontinued
rabeprazole [AcipHex] 20 mg Tablet,Delayed Release (Dr/Ec)
20 mg PO DAILY
albuterol sulfate [ProAir HFA] 90 mcg/actuation Hfa Aerosol Inhaler
2 puff INHALATION R Q6HPRN PRN (Reason: SOB)
Discharge Orders:
Discharge Patient (As Directed); Ordered 10/05/23
Ordered By: Jd Corey
Discharge Date and Time
Discharge Date/Time: 10/05/23 17:39
--- NOTE | 2023-10-05 11:10 | CM ---
CM following re: discharge planning.
Reviewed pt's chart, met with pt.
Discharge order noted. Pt is aware, expressed her agreement with discharge. IMM reviewed, placed in chart, pt has a copy.
CM spoke to [facility] veterans contact representative Jayshree and she confirmed that pt is accepted for admission today.
arranged transportation with 4:30 p.m. mushroom picker time. [facility] [id number], left with .
Pt's spouse is aware of discharge time, expressed his appreciation. RN and [facility] are aware of discharge time
[facility] Nursing Report - [phone]
Discharge instructions fax: Fax - [phone]
D/C plan: [facility].
[2023-10-05 11:30] VITALS: BP 121/53
[2023-10-05 11:51] LABS: Glucose - Point of Care 88 mg/dl (70-99)
[2023-10-05 15:35] VITALS: BP 134/60
== END 2023-10-05 17:39 | DRG 394 ==
LOC: 2 SOUTH 05:40
PROVIDERS: Internal Medicine; Surgery; ADMITTING PHYSICIAN Internal Medicine; ATTENDING PHYSICIAN Internal Medicine; CONSULT PHYSICIAN Internal Medicine; CONSULT PHYSICIAN Internal Medicine Critical Care Medicine; CONSULT PHYSICIAN Internal Medicine Gastroenterology; EMERGENCY PHYSICIAN Student in an Organized Health Care Education/Training Program; FAMILY PHYSICIAN Otolaryngology; OTHER PHYSICIAN Psychiatry & Neurology Psychiatry; OTHER PHYSICIAN Surgery
PROC: 0D9670Z Drainage of Stomach with Drainage Device, Via Natural or Artificial Opening (ICD-10-PCS; 2023-09-25)
DX: K55.1 Chronic vascular disorders of intestine (principal); E44.0 Moderate protein-calorie malnutrition; E87.1 Hypo-osmolality and hyponatremia; I48.21 Permanent atrial fibrillation; J44.1 Chronic obstructive pulmonary disease with (acute) exacerbation; J98.11 Atelectasis; N39.0 Urinary tract infection, site not specified; N17.9 Acute kidney failure, unspecified; J90 Pleural effusion, not elsewhere classified; Z68.1 Body mass index [BMI] 19.9 or less, adult; Z87.891 Personal history of nicotine dependence; I12.9 Hypertensive chronic kidney disease with stage 1 through stage 4 chronic kidney disease, or unspecified chronic kidney disease; N18.31 Chronic kidney disease, stage 3a; Z79.01 Long term (current) use of anticoagulants; F41.9 Anxiety disorder, unspecified; B96.1 Klebsiella pneumoniae [K. pneumoniae] as the cause of diseases classified elsewhere; L89.152 Pressure ulcer of sacral region, stage 2; K52.9 Noninfective gastroenteritis and colitis, unspecified; R63.0 Anorexia
CPT/HCPCS: 70450; 71045; 71046; 72110; 74177; 74240; 74248; 80048; 80053; 81003; 81015; 82962; 83036; 83690; 84134; 85014; 85018; 85025; 85027; 86850; 86900; 86901; 87077; 87086; 87186; 87811; 93005; 93306; 94060; 94640; 96361; 96374; 96375; 97162; 97166; 97530; 97535; 99291; Q9967

== ENCOUNTER 2024-07-23 20:01 | Inpatient (IN) | payer MEDICARE, OTHER, SELFPAY ==
[2024-07-23] VITALS (10 sets, daily range): BP systolic 114–157; BP diastolic 66–93; BMI 18.3; BMI 17.7
[2024-07-23 11:09] LABS: % Basophils 0.1 % (0-2); % Eosinophils 0.4 % (0-6); % Immature Granulocytes 0.5 % (0-0.5); % Lymphocytes 9.9 % (20.5-51.1); % Monocytes 4.3 % (1.7-9.3); % Neutrophils 84.8 % (42.2-75.2); Absolute Eosinophils 0.1 10^3/uL (0-0.7); Absolute Immature Granulocytes 0.1 10^3/uL (0-0.05); Absolute Lymphocytes 1.7 10^3/uL (1.2-3.4); Absolute Monocytes 0.7 10^3/uL (0.1-0.6); Absolute Neutrophils 14.3 10^3/uL (1.4-6.5); Hematocrit 35.3 % (37.0-47.0); Hemoglobin 11.6 g/dL (12.0-16.0); Mean Corp Hgb Conc. 32.9 g/dL (33.0-37.0); Mean Corpuscular Hgb 30.5 pg (27.0-31.0); Mean Corpuscular Volume 92.9 fL (81.0-99.0); Mean Platelet Volume 10.3 fL (7.4-10.4); Nucleated Red Blood Cells % 0 %; Platelet Count 332 10^3/uL (130-400); Red Cell Dist. Width 15.1 % (11.5-14.5); White Blood Cell Count 16.9 10^3/uL (4.8-10.8)
[2024-07-23] MEDS: NSS 1000 IV ×2 (11:17→22:11)
[2024-07-23] MEDS: ZOFRAN 4 MG IV (11:17)
[2024-07-23 11:29] LABS: ALT (SGPT) 14 U/L (0-35); AST (SGOT) 29 U/L (14-36); Albumin 4.3 g/dl (3.5-5.0); Alkaline Phosphatase 99 U/L (38-126); Blood Urea Nitrogen 57 mg/dl (7-17); Calcium 9.3 mg/dl (8.4-10.2); Carbon Dioxide 30 mmol/L (22-30); Chloride 101 mmol/L (98-107); Estimated Creatinine Clearance 16 ml/min; Glucose 124 mg/dl (70-99); Lipase 34 U/L (23-300); Potassium 4.3 mmol/L (3.5-5.1); Sodium 142 mmol/L (135-145); Total Bilirubin 0.9 mg/dl (0.2-1.3); Total Protein 7.4 g/dl (6.3-8.2); eGFR 25.72
[2024-07-23 14:13] LABS: Blood Urea Nitrogen 52 mg/dl (7-17); Calcium 8.5 mg/dl (8.4-10.2); Chloride 105 mmol/L (98-107); Glucose 115 mg/dl (70-99); Potassium 4.3 mmol/L (3.5-5.1); Sodium 140 mmol/L (135-145)
[2024-07-23 14:29] LABS: Carbon Dioxide 27 mmol/L (22-30); Estimated Creatinine Clearance 18 ml/min; eGFR 29.39
[2024-07-23] MEDS: NSS 500 IV (14:39)
[2024-07-23] MEDS: OMNIPAQUE 50 ML PO (14:39)
--- NOTE | 2024-07-23 14:51 | ED.GENMED ---
History of Present Illness
<Matthew Heller Jr., PA-C - Last Filed: 07/24/24 07:06>
General
Chief Complaint: Abdominal Symptoms
Source: patient and spouse
Exam Limitations: none
Time Seen by Provider: 07/23/24 10:56
Nursing documentation reviewed up to this point in time: agreed with
History of Present Illness
History of Present Illness:
84-year-old female past medical history of A-fib currently on Eliquis, hypertension hyperlipidemia, COPD presenting to the emergency department today with concerns of nausea vomiting diarrhea since yesterday. Symptoms slightly improved today but
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
Past History
<Matthew Heller Jr., PA-C - Last Filed: 07/24/24 07:06>
Past History
ED Past Medical History: Arrthythmia (Afib), COPD, HTN and Hypercholesterolemia
ED Past Surgical History: Appendectomy and Gynecological (hysterectomy)
Social History
Tobacco: Former smoker
Alcohol: None
Drug: Marijuana
Personal:
Living: with family
Review of Systems
<DAVID Moralez Jr. Last Filed: 07/24/24 07:06>
Review of Systems
Allergies reviewed?: Yes
All Other Systems: ROS reviewed and negative except as documented in HPI and ROS
Phy Exam
<Matthew Heller Jr., PA-C - Last Filed: 07/24/24 07:06>
Physical Exam
Physical Exam:
GENERAL: Alert , in no apparent distress
EYE: pupils equal and reactive
NECK: Supple, no significant adenopathy.
ENT: o/p clr, mmm.
CARDIAC: Regular rate and rhythm .
LUNGS: Clear breath sounds bilaterally, no acute respiratory distress, no wheezes/rales/rhonchi
ABDOMEN: Vague abdominal discomfort to palpation no focal tenderness no significant bloating no peritoneal signs no guarding
NEUROLOGICAL: Alert and oriented, no focal neuro deficits
SKIN: Warm and dry, skin intact.
MUSCULOSKELETAL: No edema, well perfused.
PSYCH: Normal and appropriate interaction.
Course
<Matthew Heller Jr., DAVID - Last Filed: 07/24/24 07:06>
Orders/Labs/Results
Orders:
Orders
07/23/24 09:49
EKG [Electrocardiogram (*1)] Urgent
Reason for Study: Tachycardia
07/23/24 09:50
EKG- Treatment ONCE
07/23/24 10:59
Complete Blood Count/With Diff Urgent
Comprehensive Metabolic Panel Urgent
Lipase Urgent
07/23/24 11:11
Ondansetron Injectable [Zofran] 4 mg IV NOW STA
07/23/24 11:12
0.9% Sodium Chloride 1000 ml [Nss] 1,000 ml IV BOLUS
07/23/24 13:47
BMP [Basic Metabolic Panel] Urgent
07/23/24 14:31
0.9% Sodium Chloride 500 ml [Nss] 500 ml IV BOLUS
Iohexol [Omnipaque] See Protocol PO NOW STA
07/23/24 14:48
CT Abd/pel (oral only)-[facility] Only Urgent
Comment:
Reason For Exam: abd pain hx of SMA
Iohexol [Omnipaque] See Protocol PO NOW STA
07/23/24 Dinner
Clear Liquid
At Your Request: Full Participation
Does patient need a safe tray?: No
07/23/24 18:13
Metoclopramide [Reglan] 10 mg IV NOW STA
07/23/24 19:24
Norovirus by PCR Routine
TERRENCE Source: Feces/Stool
Specimen Description:
07/23/24 19:32
Admit/Transfer Patient As Directed
Co-Sign Provider:
Level of Care: Inpatient admission
Assign to:: Telemetry
Physician / Group: Tim Haji
Diagnosis: gastroenteritis
Reason for Telemetry: Arrhythmia
Date to Stop Telemetry: 07/26/24
Time to Stop Telemetry: 11:00
Reason for Hospitalization: gastroenteritis
Expected length of stay greater than two midnights?: Yes
ELOS- Estimated Length of Stay in days: 3
I certify the patient meets the requirements for IP care: Yes
07/23/24 19:33
PRN Pain Medication Management As Directed
May give lesser potent ordered pain med per pt: Yes
preference::
Protocol:: Medication orders for pain may be administered in a
manner that supports deferring to patient preference
when the pt is:
- Requesting an ordered lesser potent pain medication.
Least to most potent pain medications are defined
as: acetaminophen < NSAID < tramadol < opioids
(morphine, oxycodone, hydromorphone).
- Requesting a lesser dose of the same medication IF
ORDERED.
- Requesting a less intrusive route of administration
if both routes are prescribed by the provider (PO <
IV).
07/23/24 19:34
Code Status As Directed
Resuscitation Status: Do not resuscitate
Reached after discussion with pt or family/Healthcare POA: Yes
Decision communicated with: patient
DNR Bracelet Application ONCE
07/23/24 19:44
Lorazepam [Ativan] 0.5 mg IV NOW STA
07/23/24 19:45
Stool Culture Routine
TERRENCE Source: Feces/Stool
Specimen Description:
07/23/24 19:52
0.9% Sodium Chloride [Nss (Preservative Free)] 0.25 ml IV NOW STA
07/23/24 20:13
Lactic Acid Stat
07/23/24 20:33
0.9% Sodium Chloride 1000 ml [Nss] 1,000 ml IV 80 mls/hr
Acetaminophen [Tylenol] 650 mg PO Q4HPRN PRN
Apixaban [Eliquis] 2.5 mg PO BID
Lorazepam [Ativan] 0.5 mg IV Q8HPRN PRN
Ondansetron Injectable [Zofran] 4 mg IV Q6HPRN PRN
07/23/24 20:33
Activity As Directed
Activity Level: As Tolerated
Vital Signs As Directed
Frequency: Per unit guidelines
07/23/24 20:43
HYDROmorphone [Dilaudid] 0.25 mg IV Q4HPRN PRN
07/23/24 21:00
Fluticasone/Salmeterol 115/21 [Advair Hfa 115/21 Mcg Inhaler] 2 puff INH R BID
07/23/24 22:00
Atorvastatin [Lipitor] 10 mg PO HS
Buspirone [Buspar] 10 mg PO TID
Metoprolol Xl [Toprol Xl] 50 mg PO HS
Mirtazapine [Remeron] 15 mg PO HS
Trazodone [Desyrel] 50 mg PO HS
07/24/24 06:00
Basic Metabolic Panel IN AM
Complete Blood Count/No Diff IN AM
07/24/24 08:00
Diltiazem Extended Release [Cardizem Cd] 240 mg PO DAILY
Furosemide [Lasix] 40 mg PO DAILY
Losartan [Cozaar] 50 mg PO DAILY
Pantoprazole [Protonix] 40 mg PO DAILY
Tiotropium Raritan 2.5 Mcg [Spiriva Respimat 2.5 Mcg] 2 puff INH R DAILY
07/25/24 06:00
Basic Metabolic Panel IN AM
Complete Blood Count/No Diff IN AM
07/26/24 06:00
Basic Metabolic Panel IN AM
Complete Blood Count/No Diff IN AM
07/26/24 11:00
DC Protocol for Telemetry ONCE
Abnormal Lab Results
07/23/24 07/23/24
10:59 13:47
WBC 16.9 H 10^3/uL
(4.8-10.8)
RBC 3.80 L 10^6/uL
(4.20-5.40)
Hgb 11.6 L g/dL
(12.0-16.0)
Hct 35.3 L %
(37.0-47.0)
MCHC 32.9 L g/dL
(33.0-37.0)
RDW 15.1 H %
(11.5-14.5)
Abs Immat Gran (auto) 0.1 H 10^3/uL
(0-0.05)
Absolute Neuts (auto) 14.3 H 10^3/uL
(1.4-6.5)
Absolute Monos (auto) 0.7 H 10^3/uL
(0.1-0.6)
Neutrophils % 84.8 H %
(42.2-75.2)
Lymphocytes % 9.9 L %
(20.5-51.1)
BUN 57 H mg/dl 52 H mg/dl
(7-17) (7-17)
Creatinine 1.9 H mg/dL 1.7 H mg/dL
(0.6-1.0) (0.6-1.0)
Glucose 124 H mg/dl 115 H mg/dl
(70-99) (70-99)
07/23/24 10:59
07/23/24 13:47
Vital Signs
Initial and Last Documented VS:
Initial Vital Signs
Temp Pulse Resp BP Pulse Ox
98.2 F 112 24 154/85 98
07/23/24 09:44 07/23/24 09:44 07/23/24 09:44 07/23/24 09:44 07/23/24 09:44
Last Documented Vital Signs
Temp Pulse Resp BP Pulse Ox
97.5 F 96 16 153/66 99
07/24/24 03:00 07/24/24 03:00 07/24/24 03:00 07/24/24 03:00 07/24/24 03:00
<Andry Carney PA-C - Last Filed: 07/23/24 21:46>
Orders/Labs/Results
Orders:
Orders
07/23/24 09:49
EKG [Electrocardiogram (*1)] Urgent
Reason for Study: Tachycardia
07/23/24 09:50
EKG- Treatment ONCE
07/23/24 10:59
Complete Blood Count/With Diff Urgent
Comprehensive Metabolic Panel Urgent
Lipase Urgent
07/23/24 11:11
Ondansetron Injectable [Zofran] 4 mg IV NOW STA
07/23/24 11:12
0.9% Sodium Chloride 1000 ml [Nss] 1,000 ml IV BOLUS
07/23/24 13:47
BMP [Basic Metabolic Panel] Urgent
07/23/24 14:31
0.9% Sodium Chloride 500 ml [Nss] 500 ml IV BOLUS
Iohexol [Omnipaque] See Protocol PO NOW STA
07/23/24 14:48
CT Abd/pel (oral only)-[facility] Only Urgent
Comment:
Reason For Exam: abd pain hx of SMA
Iohexol [Omnipaque] See Protocol PO NOW STA
07/23/24 Dinner
Clear Liquid
At Your Request: Full Participation
Does patient need a safe tray?: No
07/23/24 18:13
Metoclopramide [Reglan] 10 mg IV NOW STA
07/23/24 19:24
Norovirus by PCR Routine
TERRENCE Source: Feces/Stool
Specimen Description:
07/23/24 19:32
Admit/Transfer Patient As Directed
Co-Sign Provider:
Level of Care: Inpatient admission
Assign to:: Telemetry
Physician / Group: Tim Haji
Diagnosis: gastroenteritis
Reason for Telemetry: Arrhythmia
Date to Stop Telemetry: 07/26/24
Time to Stop Telemetry: 11:00
Reason for Hospitalization: gastroenteritis
Expected length of stay greater than two midnights?: Yes
ELOS- Estimated Length of Stay in days: 3
I certify the patient meets the requirements for IP care: Yes
07/23/24 19:33
PRN Pain Medication Management As Directed
May give lesser potent ordered pain med per pt: Yes
preference::
Protocol:: Medication orders for pain may be administered in a
manner that supports deferring to patient preference
when the pt is:
- Requesting an ordered lesser potent pain medication.
Least to most potent pain medications are defined
as: acetaminophen < NSAID < tramadol < opioids
(morphine, oxycodone, hydromorphone).
- Requesting a lesser dose of the same medication IF
ORDERED.
- Requesting a less intrusive route of administration
if both routes are prescribed by the provider (PO <
IV).
07/23/24 19:34
Code Status As Directed
Resuscitation Status: Do not resuscitate
Reached after discussion with pt or family/Healthcare POA: Yes
Decision communicated with: patient
DNR Bracelet Application ONCE
07/23/24 19:44
Lorazepam [Ativan] 0.5 mg IV NOW STA
07/23/24 19:45
Stool Culture Routine
TERRENCE Source: Feces/Stool
Specimen Description:
07/23/24 19:52
0.9% Sodium Chloride [Nss (Preservative Free)] 0.25 ml IV NOW STA
07/23/24 20:13
Lactic Acid Stat
07/23/24 20:33
0.9% Sodium Chloride 1000 ml [Nss] 1,000 ml IV 80 mls/hr
Acetaminophen [Tylenol] 650 mg PO Q4HPRN PRN
Apixaban [Eliquis] 2.5 mg PO BID
Lorazepam [Ativan] 0.5 mg IV Q8HPRN PRN
Ondansetron Injectable [Zofran] 4 mg IV Q6HPRN PRN
07/23/24 20:33
Activity As Directed
Activity Level: As Tolerated
Vital Signs As Directed
Frequency: Per unit guidelines
07/23/24 20:43
HYDROmorphone [Dilaudid] 0.25 mg IV Q4HPRN PRN
07/23/24 21:00
Fluticasone/Salmeterol 115/21 [Advair Hfa 115/21 Mcg Inhaler] 2 puff INH R BID
07/23/24 22:00
Atorvastatin [Lipitor] 10 mg PO HS
Buspirone [Buspar] 10 mg PO TID
Metoprolol Xl [Toprol Xl] 50 mg PO HS
Mirtazapine [Remeron] 15 mg PO HS
Trazodone [Desyrel] 50 mg PO HS
07/24/24 06:00
Basic Metabolic Panel IN AM
Complete Blood Count/No Diff IN AM
07/24/24 08:00
Diltiazem Extended Release [Cardizem Cd] 240 mg PO DAILY
Furosemide [Lasix] 40 mg PO DAILY
Losartan [Cozaar] 50 mg PO DAILY
Pantoprazole [Protonix] 40 mg PO DAILY
Tiotropium Raritan 2.5 Mcg [Spiriva Respimat 2.5 Mcg] 2 puff INH R DAILY
07/25/24 06:00
Basic Metabolic Panel IN AM
Complete Blood Count/No Diff IN AM
07/26/24 06:00
Basic Metabolic Panel IN AM
Complete Blood Count/No Diff IN AM
07/26/24 11:00
DC Protocol for Telemetry ONCE
Abnormal Lab Results
07/23/24 07/23/24
10:59 13:47
WBC 16.9 H 10^3/uL
(4.8-10.8)
RBC 3.80 L 10^6/uL
(4.20-5.40)
Hgb 11.6 L g/dL
(12.0-16.0)
Hct 35.3 L %
(37.0-47.0)
MCHC 32.9 L g/dL
(33.0-37.0)
RDW 15.1 H %
(11.5-14.5)
Abs Immat Gran (auto) 0.1 H 10^3/uL
(0-0.05)
Absolute Neuts (auto) 14.3 H 10^3/uL
(1.4-6.5)
Absolute Monos (auto) 0.7 H 10^3/uL
(0.1-0.6)
Neutrophils % 84.8 H %
(42.2-75.2)
Lymphocytes % 9.9 L %
(20.5-51.1)
BUN 57 H mg/dl 52 H mg/dl
(7-17) (7-17)
Creatinine 1.9 H mg/dL 1.7 H mg/dL
(0.6-1.0) (0.6-1.0)
Glucose 124 H mg/dl 115 H mg/dl
(70-99) (70-99)
07/23/24 10:59
07/23/24 13:47
Vital Signs
Initial and Last Documented VS:
Initial Vital Signs
Temp Pulse Resp BP Pulse Ox
98.2 F 112 24 154/85 98
07/23/24 09:44 07/23/24 09:44 07/23/24 09:44 07/23/24 09:44 07/23/24 09:44
Last Documented Vital Signs
Temp Pulse Resp BP Pulse Ox
97.5 F 96 16 153/66 99
07/24/24 03:00 07/24/24 03:00 07/24/24 03:00 07/24/24 03:00 07/24/24 03:00
<Matthew Heller Jr., PA-C - Last Filed: 07/24/24 07:06>
MDM/Problems Addressed
MDM/Problems Addressed:
84-year-old female presenting to the emergency department with concerns of nausea vomiting diarrhea with multiple episodes since yesterday. Trouble tolerating by mouth today. On arrival mildly tachycardic does not history of A-fib does take
diltiazem has been taking the medication as well as Eliquis. Heart rate improving to the 90s after receiving a liter of fluid white count of 16.9. Otherwise BUN elevated as well as creatinine baseline slight CRISTÓBAL on labs. Patient was concerned she
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
<Andry Carney PA-C - Last Filed: 07/23/24 21:46>
*Critical Care Note
Total Time (30-74mins, 75-104mins- exclusive of procedures): Not Applicable
<Andry Carney PA-C - Last Filed: 07/23/24 21:46>
Update Note
Update Note:
9900: Assumed care of pt from Odilon Heller PA-C at shift change. Pending imaging, suspicion for viral gastroenteritis. Prior hx of non specific SMA syndrome. Plan for d/c if CT unremarkable.
1814: Patient reassessed, had another high-volume bowel movement after CT. Imaging shows no acute process. Patient with an CRISTÓBAL and she is markedly tachycardic on my evaluation, tachypneic after slight exertion. Will admit for further IV fluids
ED Attending Note
<Matthew Heller Jr., PA-C - Last Filed: 07/24/24 07:06>
-
Portions of this chart may have been created with voice recognition software.� Occasional wrong word or��sound alike� substitutions may have occurred due to the inherent limitations of voice recognition software.
Discharge Plan
Departure
Patient Disposition: Admit
Date of Disposition: 07/23/24
Time of Disposition: 18:15
Admit to: Med/Surg
Presentation/result/management discussed w/ accepting MD/DO: Hospitalist
Discharge Problem:
Gastroenteritis
Interventions
Interventions:
*Risk Screen - Suicide Last Done: 07/23/24 09:44
*General Assessment Last Done: 07/23/24 09:44
*Neglect/Abuse Screening Last Done: 07/23/24 09:44
ED- Fall Risk Assessment Last Done: 07/23/24 20:58
*ED COVID-19 Vaccine History Last Done: 07/23/24 09:44
*Nursing Disposition Last Done: 07/23/24 20:58
IE-Ysdvxi-Eewlyzubri Assessment Last Done: 07/23/24 11:03
Discharge Date and Time
Discharge Date/Time: 07/23/24 20:58
[2024-07-23] MEDS: REGLAN 10 MG IV (18:17)
--- NOTE | 2024-07-23 18:50 | HPS.HSE ---
Family Physician
-
Family Physician: Isai Luo
Chief Complaint
-
abdominal pain with nausea/vomiting and diarrhea
History of Present Illness
Patient is a 84-year-old female with past medical history significant for hypertension, hyperlipidemia, HFpEF, COPD, paroxysmal atrial fibrillation, anxiety and GERD who presented to [facility] for evaluation of nausea and vomiting since
yesterday. Patient states yesterday morning she started with abdominal cramping and this morning the vomiting and diarrhea worsened so she decided to come in for evaluation. Patient denies any fever, chills, cough, shortness of breath, chest pain,
constipation or urinary symptoms.
Medical History
Past Medical History
Past Medical History: Reports Other
Additional Past Medical History:
hypertension
hyperlipidemia
HFpEF
COPD
paroxysmal atrial fib
anxiety
GERD
Past Surgical History: Reports Other
Additional Past Surgical History:
appendectomy
hysterectomy
Social History
Tobacco: Former Smoker (quit 1989)
Alcohol: None
Drug: None
Personal:
Living: With Family
Employment: Retired
Family History
Family History: Not pertinent
Allergies / Home Medications
Allergies reflects when Allergies were last updated in [facility].
Home Medications with original date entered in [employer]
Allergy/Medication List:
Allergies
Allergy/AdvReac Type Severity Reaction Status Date / Time
No Known Drug Allergies Allergy Unknown Verified 07/23/24 09:49
Home Medications
apixaban 2.5 mg tablet 2.5 mg PO BID Blood clot prevention/tx 10/19/22
diltiazem HCl 240 mg capsule,extended release 24 hr 240 mg PO DAILY Arrhythmia 10/19/22
fluticasone 250 mcg-salmeterol 50 mcg/dose blistr powdr for inhalation (Wixela Inhub) 1 inh inhalation R BID Lung/breathing issues 10/19/22
simvastatin 20 mg tablet 20 mg PO HS High cholesterol 10/19/22
adalimumab 40 mg/0.4 mL subcutaneous pen kit (Humira(CF) Pen) 40 mg SC Q3W Autoimmune Disorder 09/27/23
metoprolol succinate 50 mg tablet,extended release 24 hr 50 mg PO HS Blood Pressure 09/27/23
tiotropium bromide 18 mcg capsule with inhalation device (Spiriva with HandiHaler) 2 cap inhalation R DAILY Lung/Breathing Issues 09/27/23
buspirone 5 mg tablet 10 mg (2 x 5 mg) PO TID Mental Health/Anxiety #0 tabs 10/05/23
alprazolam 0.25 mg tablet 0.25 mg PO HS 07/23/24
furosemide 40 mg tablet 40 mg PO DAILY 07/23/24
losartan 50 mg tablet 50 mg PO DAILY 07/23/24
mirtazapine 15 mg tablet 15 mg PO HS 07/23/24
rabeprazole 20 mg tablet,delayed release 20 mg PO DAILY 07/23/24
trazodone 50 mg tablet 50 mg PO HS 07/23/24
Review of Systems
-
History Source: Patient
Constitutional: Reports Fatigue
EENT: Reports No Symptoms
Respiratory: Reports No Symptoms
Cardiac: Reports No Symptoms
Abdomen/GI: Reports Abdominal Pain, Nausea, Vomiting and Diarrhea
: Reports No Symptoms
Musculoskeletal: Reports No Symptoms
Skin: Reports No Symptoms
Neurological: Reports No Symptoms
Endocrine: Reports No Symptoms
Hematologic/Lymphatic: Reports No Symptoms
Psych: Reports No Symptoms
Physical Exam
Vital Signs
Vital Signs
Temp Pulse Resp BP Pulse Ox
98.2 F 127 21 152/83 98
07/23/24 09:44 07/23/24 17:45 07/23/24 17:45 07/23/24 16:01 07/23/24 09:44
Physical Exam
General: Well Developed, Well Nourished, No Apparent Distress, Comfortable and Conversant
HEENT: NormoCephalic, Moist mucous membranes and Atraumatic
Respiratory: Clear and Non Labored Respirations
Cardiac: S1/S2, Irregular Rhythm and Tachycardia; No Murmur, Rub or Gallop
Breast: Deferred by me
GI: Soft, Non Tender, Non Distended and Normal Bowel Sounds; No Organomegaly
Rectal: Deferred by Provider
Genito-urinary: Deferred by me
Musculoskeletal: No Clubbing, No Cyanosis and No Edema
Skin: Warm and IV/Catheter Site; No Rash
Neuro: Awake, Alert, AO x 3 and Nonfocal/grossly intact
Hematologic/Lymphatic: No Lymphadenopathy
Psych: Calm and Intact Judgment/Insight
Laboratory Results
-
07/23/24 10:59
07/23/24 13:47
Laboratory Results
Total Bilirubin 0.9 mg/dl (0.2-1.3) 07/23/24 10:59
AST 29 U/L (14-36) 07/23/24 10:59
ALT 14 U/L (0-35) 07/23/24 10:59
Alkaline Phosphatase 99 U/L (38-126) 07/23/24 10:59
Lipase 34 U/L (23-300) 07/23/24 10:59
Data Reviewed
-
CT Scan: Report Reviewed by me (Abd/Pelvis CT: Small right pleural effusion. Improved. Tiny left pleural effusion. Improved. Numerous bilateral simple renal cysts. Bilateral hyperdense renal lesions likely benign proteinaceous cysts. These would
better be evaluated by MR examination if not previously performed. Grossly stable. T)
Medical Tests (Nuc Med, Echo, EKG etc): Report Reviewed by me (EKG: ATRIAL FIBRILLATION WITH RAPID VENTRICULAR RESPONSE)
Lab Data: Labs Reviewed by me (WBC 16.9, BUN 52, Creat 1.7)
Impression/Plan
-
IMPRESSION/PLAN:
#gastroenteritis
nausea, vomiting and diarrhea since yesterday
Hx SMA syndrome
- Admit to telemetry
- Consult GI
- Norovirus pending
- Lactic pending
- Clear liquid diet, advance as tolerated
- PRN Zofran
#Acute kidney injury
chronic kidney disease 3b
BUN 52, Creat 1.7
- trend BMP
- NSS 80cc/hr
#hypertension
- continue furosemide, losartan, and metoprolol
#hyperlipidemia
- continue simvastatin
#HFpEF
- continue furosemide, and metoprolol
#COPD
- Wixela and Spiriva
#paroxysmal atrial fib
- continue apixaban, diltiazem, and metoprolol
#GERD
- continue rabeprazole
#Anxiety
- continue alprazolam, buspirone, mirtazapine, and trazodone
Code Status: DNR
DVT Prophylaxis: Eliquis
--- NOTE | 2024-07-23 19:33 | W.PN.UPDATE ---
Update Note
Progress Note Update
This note serves as an addendum to the H&P by firer helper ANATOLY Alix Finley
HPI
84F PMH suspected SMA syndrome , HX Prx AF , HTN, HLD, COPD, RA, and appendectomy seen at ER
- concerns of nausea vomiting diarrhea since yesterday. HX similar to last admission sep 2023
- Symptoms slightly improved today but having some abdominal bloating which she was concerned
- on last admission she was suspected with SMA syndrome in Sep 2023
PHX
Afib, HTN, HLD, COPD, RA
Past Surgical History: Reports Appendectomy
Social History
Tobacco: Former Smoker
Alcohol: None
Family History
Family History: Not pertinent
Allergies / Home Medications
Reviewed VS: Afebrile , HR 110-130s RR 20- 25
PE
Gen: mod distress with abdominal pain
HEENT: anicteric
Neck: supple
Lungs: CTA
Cor: tachycardic
Abdomen: mildly distended abdomen, diffuse tenderness
MINE SURVEYOR: AAO3 , grossly normal
MS: no edema
Psych: nl mood and affect
Data
10/05/23 07/23/24 07/23/24
08:38 10:59 13:47
WBC 18.8 H 16.9 H
Hgb 11.1 L 11.6 L
BUN 52 H
Creatinine 1.1 H 1.7 H
eGFR 49.[address]/pel PO -DH Only
- Small right pleural effusion. Improved. Tiny left pleural effusion. Improved.
- Numerous bilateral simple renal cysts. Bilateral hyperdense renal lesions likely benign proteinaceous cysts. These would better be evaluated by MR examination if not previously performed. Grossly stable.
- Tiny pericardial effusion versus pericardial thickening. New
- Right adrenal mass concerning for malignancy. Stable. This would better be evaluated by MRI examination.
- Severe diverticulosis. No evidence of acute diverticulitis. Stable
- Moderate atherosclerotic vascular disease. Stable
- Mild L3 compression fracture. Stable
Last hospitalist admission: Date of Admission: 09/25/23 - Date of Discharge: 10/05/23
Discharge Diagnosis
Nausea/vomiting with worsening gastric reflux
Suspected SMA
Shortness of breath likely multifactorial secondary to atrial fibrillation, COPD and anxiety
Hyponatremia
Leukocytosis
Klebsiella urinary tract infection
Acute kidney injury
Dysphagia
ASSESSMENT & PLAN
Acute N/V and abdominal pain wit dirrhea s/p 1.5 NS at ER
DDX: acute infective GE ( Viral, bacterial or non infective) or Falre up of SMA syndrome on Eliquis
- check LA
- clear and ADAT
- IVF NS
- anti emetics
- Narcotic analgesia IV Dilaudid 0.25mg q4h PRN -hold for AMS
- GI consult
CRISTÓBAL due to GI fluid Loss
HX CKD3a/b
PCK dz per CT
- IV NS 80/H
- Trend Cr
Chronic Leukocytosis - unclear etiolgy
Nontoxic looking.
- Continue to follow [facility]
HX Prx AF on Eliquis
- cont Eliquis especially with SMA syndrome
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
Benign HTN
- on Losartan
Chronic conditions
CVA Status Post tPA
HX Epistaxis s/p Cauterization
COPD
Kidney stones
Rheumatoid arthritis (on Humira)
Reflux
Anxiety on chr Alprazolam HS to be cont.
DVT Px: on Eliquis
Code: Full
IP TLM
[2024-07-23] MEDS: ATIVAN 0.5 MG IV (20:12)
[2024-07-23 20:35] LABS: Lactic Acid 0.5 mmol/L (0.7-2.0)
--- NOTE | 2024-07-23 21:00 | PTCARENOTE ---
Pt transferred from ED. Pt ambulated into room with assistance. Pt [id number], able to make needs known, VSS. Pt oriented to unit, call meza within reach. Will continue with current plan.
[2024-07-23] MEDS: ADVAIR HFA 115/21 MCG INHALER INH (21:49)
[2024-07-23] MEDS: DESYREL 50 MG PO (22:11)
[2024-07-23] MEDS: BUSPAR 10 MG PO (22:11)
[2024-07-23] MEDS: REMERON 15 MG PO (22:11)
[2024-07-23] MEDS: TOPROL XL 50 MG PO (22:12)
[2024-07-23] MEDS: LIPITOR 10 MG PO (22:12)
[2024-07-23] MEDS: ELIQUIS 2.5 MG PO (22:12)
[2024-07-24] VITALS (7 sets, daily range): BP systolic 115–153; BP diastolic 66–95; PULSE 80–139; O2SAT 96–98; BMI 17.7
--- NOTE | 2024-07-24 07:00 | CON.GI ---
Addendum entered and electronically signed by Crissy Horne MD 07/24/24 10:47:
I saw and examined the patient.
The SOCK FOLDER's note was reviewed and I agree with the note.
Comment: This is a 84-year-old female with multiple medical problems as listed below who has had chronic symptoms of nausea with early satiety vomiting, loss of appetite and weight loss and has had extensive workup for this in the past and was
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 A GJ tube was considered in the past but patient had decided against it because of the risk of sedation and underlying respiratory
issues with COPD. She has seen multiple GI physicians in the past and was last seen by Dr. Simon and she does have an appointment with Dr. Broussard at [facility] in August. She says that she has not been drinking protein supplements on a
consistent basis she also has an adrenal mass and patient decided against workup and repeat CT on admission was also negative for obstruction and no gastric distention was noted either.
Assessment and plan chronic symptoms of nausea with early satiety intermittent episodes of vomiting, weight loss, loss of appetite with possible SMA syndrome and possible gastroparesis patient does not want to have a GJ tube given higher risk given
age, comorbidities and COPD. I encouraged her to drink at least 2 to 3 cans of Ensure a day will get nutrition consult to recommend other nutritional supplements if patient able to tolerate that. She will follow-up with Dr. Broussard as scheduled in
August and she had seen Dr. Simon in the past also encouraged her to eat small frequent low fat low residue meals and continue PPI for now. GI will s/o and will be available as needed. Consider palliative care
Patient does not want w/u or surgery if needed for the adrenal mass
Original Note:
Consultation
-
Date/Time Consultation Requested: 07/23/242229
Date/Time Consultation Performed: 07/23/24 0700
Requesting Provider: CHAPIN Rodriguez
Performing Provider: CHAPIN Renee, Crissy Horne MD
Reason for Consultation: wt loss nausea, vomiting
Medical History
Chief Complaint / HPI
Chief Complaint: nausea.vomiting
History of Present Illness:
Pt is an 84yo with hx Afib on Eliquis, RA on Humira, HTN, HLD, COPD,prior appe, adrenal mass, prior noted concern for gastroparesis and SMA syndrome with onset of nausea and vomiting. She had admission last September with similar symptoms with
concern at that time for SMA syndrome and delayed gastric emptying. She as high risk for EGD with pulm status. G/J tube was discussed but pt declined due for need for sedation. She was also treated with steroids for resp issue and noted with UTI
and treated with antibiotics. She was noted at that time with SBFT with moderate distention on stomach, proximal duodenum with midline extrinsic compression of duodenum at SMA with collapse of fourth portion suggest SMA syndrome. She also admit to
noted adrenal lesion at that time but did not feel she could proceed with MRI due to lung issues. She denies any further admissions since that time. She now return with nausea and vomiting. She admist feeling ok but intermittent symptoms.
Symptoms become severe around . She is concern for wt loss. He weight was 140 for many years then now down to 103. She has seen several GI MD and scheduled with her 4th gi MD -- Dr. Broussard in August with concern for wt loss and
decreased appetite.CT on return with small effusion, tiny pericardial effusion, renal cyst and b/l hyperdense renal lesions likely proteinaceous cysts, right adrenal mass concern for malignancy, diverticulosis, atherosclerosis and L3 comp fx.
At this time she admits to decreased appetite with lack of taste. She also had GERD worse with recent GI symptoms. She denies issues with diarrhea, constipation or rectal bleeding. last EGD/colon in 2013 and deferred recently with
significant lung disease. + marijuana use last use last week without improvement.
Past Medical History
Past Medical History: Arrhythmias (PAF), CHF, COPD, GERD, HTN, Hypercholesterolemia, Psychiatric (anxiety) and Other (RA on humira, adrenal mass, SMA syndrome, gastroparesis )
Past Surgical History: Appendectomy
Social History
Tobacco: Former Smoker
Alcohol: None
Drug: Marijuana
Personal:
Living: With Family
Employment: Retired
Family History
Family History: Other (pt denies but her records family hx colon CA)
Allergies / Home Medications
Allergy/AdvReac Type Severity Reaction Status Date / Time
No Known Drug Allergies Allergy Unknown Verified 07/23/24 09:49
�Medication �Instructions �Recorded
apixaban 2.5 mg tablet 2.5 mg PO BID Blood clot 10/19/22
prevention/tx
diltiazem HCl 240 mg 240 mg PO DAILY Arrhythmia 10/19/22
capsule,extended release 24 hr
fluticasone 250 mcg-salmeterol 50 1 inh inhalation R BID 10/19/22
mcg/dose blistr powdr for Lung/breathing issues
inhalation (Wixela Inhub)
simvastatin 20 mg tablet 20 mg PO HS High cholesterol 10/19/22
adalimumab 40 mg/0.4 mL 40 mg SC Q3W Autoimmune Disorder 09/27/23
subcutaneous pen kit (Humira(CF)
Pen)
metoprolol succinate 50 mg 50 mg PO HS Blood Pressure 09/27/23
tablet,extended release 24 hr
tiotropium bromide 18 mcg capsule 2 cap inhalation R DAILY 09/27/23
with inhalation device (Spiriva Lung/Breathing Issues
with HandiHaler)
buspirone 5 mg tablet 10 mg (2 x 5 mg) PO TID Mental 10/05/23
Health/Anxiety #0 tabs
alprazolam 0.25 mg tablet 0.25 mg PO HS 07/23/24
furosemide 40 mg tablet 40 mg PO DAILY 07/23/24
losartan 50 mg tablet 50 mg PO DAILY 07/23/24
mirtazapine 15 mg tablet 15 mg PO HS 07/23/24
rabeprazole 20 mg tablet,delayed 20 mg PO DAILY 07/23/24
release
trazodone 50 mg tablet 50 mg PO HS 07/23/24
Review of Systems
-
History Source: Patient
Constitutional: Reports Weight Loss (over time 40 lbs ) and Fatigue
EENT: Reports Other (decreased taste sensation)
Respiratory: Reports Trouble Breathing (with COPD on chronic O2 )
Cardiac: Reports No Symptoms
Abdomen/GI: Reports Abdominal Pain, Nausea, Vomiting and Anorexia
: Reports Other (prior hx UTI's)
Musculoskeletal: Reports No Symptoms
Skin: Reports No Symptoms
Neurological: Reports Weakness
Endocrine: Reports No Symptoms
Hematologic/Lymphatic: Reports No Symptoms
Vital Signs
Temp Pulse Resp BP Pulse Ox
97.5 F 96 16 153/66 99
07/24/24 03:00 07/24/24 03:00 07/24/24 03:00 07/24/24 03:00 07/24/24 03:00
Physical Exam
Exam
General: Well Nourished, No Apparent Distress and Other (thin appearing )
HEENT: Normocephalic and Anicteric
Respiratory: Clear
Cardiac: Regular Rhythm
GI: Soft, Non Tender and Non Distended
Musculoskeletal: No Clubbing and No Cyanosis
Skin: Warm and Dry
Neuro: Awake, Alert and AO x 3
Psych: Calm
Results
WBC 16.9 10^3/uL (4.8-10.8) H 07/23/24 10:59
Hgb 11.6 g/dL (12.0-16.0) L 07/23/24 10:59
Hct 35.3 % (37.0-47.0) L 07/23/24 10:59
MCV 92.9 fL (81.0-99.0) 07/23/24 10:59
Plt Count 332 10^3/uL (130-400) 07/23/24 10:59
Absolute Neuts (auto) 14.3 10^3/uL (1.4-6.5) H 12/05/24 10:59
Sodium 140 mmol/L (135-145) 07/23/24 13:47
Potassium 4.3 mmol/L (3.5-5.1) 07/23/24 13:47
Chloride 105 mmol/L (98-107) 07/23/24 13:47
Carbon Dioxide 27 mmol/L (22-30) 07/23/24 13:47
BUN 52 mg/dl (7-17) H 07/23/24 13:47
Creatinine 1.7 mg/dL (0.6-1.0) H 07/23/24 13:47
Calcium 8.5 mg/dl (8.4-10.2) 07/23/24 13:47
Total Bilirubin 0.9 mg/dl (0.2-1.3) 07/23/24 10:59
AST 29 U/L (14-36) 07/23/24 10:59
ALT 14 U/L (0-35) 07/23/24 10:59
Alkaline Phosphatase 99 U/L (38-126) 07/23/24 10:59
Lipase 34 U/L (23-300) 07/23/24 10:59
Diagnostic Image Results:
09/25/23 CT Abd/pelvis W Iv Cont
Fluid-filled stomach and small bowel which could represent gastroenteritis with some fluid seen in the distal thoracic esophagus which may be secondary to gastroesophageal reflux.
Distended stomach with narrowed aorta mesenteric angle, cannot exclude SMA syndrome.
Marked atherosclerosis of the proximal SMA and proximal left renal artery.
Bilateral lower lobe subsegmental atelectasis, small right and tiny left pleural effusions.
Numerous bilateral renal cysts suggesting PCKD.
Please note, evaluation of the study performed on prior day does reveal an approximate 2.4 cm mildly lobulated slightly high attenuation right adrenal lesion which although may be benign, malignancy cannot be entirely excluded. Further evaluation
with abdomen CT without and with contrast or MRI recommended for more complete evaluation.
09/2023 SBFT
1. Severe gastroesophageal reflux.
2. Moderate distention of the stomach with very slow passage of contrast material into the duodenum and small bowel.
3. Moderate distention of the proximal third portion of the duodenum with midline extrinsic compression on the duodenum in the region of the superior mesenteric artery. Relative collapse of the fourth portion of the duodenum and proximal jejunum
suggesting superior mesenteric artery (SMA) syndrome.
4. Slow passage of contrast material through the small bowel most suggestive of an adynamic ileus.
5. Small right indirect inguinal hernia.
6. Mild cardiomegaly.
7. Small right and minimal left pleural effusions.
09/2023 CT A/P:
Fluid-filled stomach and small bowel which could represent gastroenteritis with some fluid seen in the distal thoracic esophagus which may be secondary to gastroesophageal reflux.
Distended stomach with narrowed aorta mesenteric angle, cannot exclude SMA syndrome.
Marked atherosclerosis of the proximal SMA and proximal left renal artery.
Bilateral lower lobe subsegmental atelectasis, small right and tiny left pleural effusions.
Numerous bilateral renal cysts suggesting PCKD.
Please note, evaluation of the study performed on prior day does reveal an approximate 2.4 cm mildly lobulated slightly high attenuation right adrenal lesion which although may be benign, malignancy cannot be entirely excluded. Further evaluation
with abdomen CT without and with contrast or MRI recommended for more complete evaluation.
IMPRESSION:
Prior GI Procedures:
EGD: 2013 normal with neg bx
Colonoscopy: 2013 with diverticulosis and hemorrhoids.
Assessment / Plan
-
Pt is an 84yo with hx Afib on Eliquis, RA on Humira, HTN, HLD, COPD,prior appe, adrenal mass, prior noted concern for gastroparesis and SMA syndrome with onset of nausea and vomiting. She had admission last September with similar symptoms with
concern at that time for SMA syndrome and delayed gastric emptying. She as high risk for EGD with pulm status. G/J tube was discussed but pt declined due for need for sedation. She was also treated with steroids for resp issue and noted with UTI
and treated with antibiotics. She was noted at that time with SBFT with moderate distention on stomach, proximal duodenum with midline extrinsic compression of duodenum at SMA with collapse of fourth portion suggest SMA syndrome. She also admit to
noted adrenal lesion at that time but did not feel she could proceed with MRI due to lung issues. She denies any further admissions since that time. She now return with nausea and vomiting. She admist feeling ok but intermittent symptoms.
Symptoms become severe around . She is concern for wt loss. He weight was 140 for many years then now down to 103. She has seen several GI MD and scheduled with her 4th gi MD -- Dr. Broussard in August with concern for wt loss and
decreased appetite.CT on return with small effusion, tiny pericardial effusion, renal cyst and b/l hyperdense renal lesions likely proteinaceous cysts, right adrenal mass concern for malignancy, diverticulosis, atherosclerosis and L3 comp fx.
-nausea/vomiting/GERD
-decreased appetite
-admission in September with concern for SMA syndrome/gastroparesis pt declined G/J tube
-CT with concern for adrenal malignancy
advanced lung disease/COPD with pulm HTN
recent Marijuana use
-GERD on Aciphex
-wt loss
other medical problems:
-afib on Eliquis
-RA in Humira
-HTN
-hyperlipidemia
-Prior appe
-hx prior tobacco use
PLAN:
Etiology of decreased appetite with nausea and vomiting related to prior noted SMA, delayed gastric emptying, Marijuana use, advanced lung disease vs other
discussed options with patient including G/J tube, MRI to eval for adrenal lesion, appetite stimulants with side effects such as Remeron , diet management vs other
she will consider options but currently denies MRI and feeding tube with concern for advancing lung disease
will advance to gastroparesis diet, small frequent meals, avoid insoluble fiber, fizzy drinks consider blenderized foods
discussed Marijuana abstinence as not improving symptoms
add supplement BID
she is agreeable to dietary consult
follow up with Dr. Broussard as schedule in August
Pt remain on Eliquis
cont PPI
I also discussed consider palliative care since she is declining some interventions -- she will consider if wants to proceed
optimize pulm status
monitor diet intakes
-
-
Thank you for consultation and allowing me to participate in the patient's care. Please call the real estate transaction manager GI physician during the after hours with any questions or concerns.
[2024-07-24] MEDS: ADVAIR HFA 115/21 MCG INHALER 2 PUFF INH ×2 (08:27→19:57)
[2024-07-24] MEDS: SPIRIVA RESPIMAT 2.5 MCG 2 PUFF INH (08:32)
[2024-07-24] MEDS: CARDIZEM CD 240 MG PO (09:21)
[2024-07-24] MEDS: COZAAR 50 MG PO (09:22)
[2024-07-24] MEDS: LASIX 40 MG PO (09:22)
[2024-07-24] MEDS: ELIQUIS 2.5 MG PO ×2 (09:22→20:40)
[2024-07-24] MEDS: PROTONIX 40 MG PO (09:23)
[2024-07-24] MEDS: BUSPAR 10 MG PO ×3 (09:23→20:40)
[2024-07-24 09:38] LABS: Hemoglobin 9.5 g/dL (12.0-16.0); Mean Corp Hgb Conc. 31.7 g/dL (33.0-37.0); Mean Corpuscular Hgb 30.2 pg (27.0-31.0); Mean Corpuscular Volume 95.2 fL (81.0-99.0); Mean Platelet Volume 10.2 fL (7.4-10.4); Platelet Count 277 10^3/uL (130-400); Red Blood Cell Count 3.15 10^6/uL (4.20-5.40); Red Cell Dist. Width 15.1 % (11.5-14.5)
[2024-07-24 09:55] LABS: Blood Urea Nitrogen 41 mg/dl (7-17); Calcium 7.5 mg/dl (8.4-10.2); Carbon Dioxide 23 mmol/L (22-30); Chloride 108 mmol/L (98-107); Estimated Creatinine Clearance 24 ml/min; Glucose 70 mg/dl (70-99); Potassium 4.6 mmol/L (3.5-5.1); Sodium 141 mmol/L (135-145); eGFR 40.55
--- NOTE | 2024-07-24 10:47 | W.PN.HOSP.TC ---
Today's Communication/Plan
-
see outlined plan
Assessment / Plan
Assessment / Plan
Assessment:
Acute GI uspet (N/V, abd pain) on chronic abdominal pain and poor appetite
Known hx of SMA syndrome, GERD
complicating factor of MJ use
- d/w patient for small frequent meals, low fat, low fiber ordered
- cessation of MJ
- supplements; nutrition evaluation
- supportive care
- declines G/J tube due to age, COPD and risk of procedure
Low appetite
Weight loss 40lbs in 1 year
Renal mass on CT
- patient opts against MRI or further diagnostics, aware she might have adrenal malignancy.
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
hx of Polycystic kidney disease
- Cr improving with IVF
Chronic Leukocytosis - unclear etiology
hx of PAF
- continue Toprol/Diltiazem and Eliquis
Benign HTN
- on Losartan
hx of CVA s/p tPA
Hx Epistaxis s/p Cauterization
COPD, advanced with pulm HTN
Chronic hypoxic respiratory failure on 3L NC
Kidney stones
Rheumatoid arthritis (on Humira)
Anxiety on chr Alprazolam HS to be cont.
RA on Humira
HLD
DVT ppx: Eliquis
Code: Full
Dispo: Pall care consult. assess diet tolerance.
Anticipated Discharge: 24 - 48 hours
Subjective/Interval History
-
Date of Service: July 24, 2024
denies any new complaints at present
States feels a bit better this morning, eager to try food
Objective Data
-
Labs:
Laboratory Results
07/24/24
09:19
WBC 11.0 H
Hgb 9.5 L
Hct 30.0 L
Plt Count 277
Sodium 141
Potassium 4.6
Chloride 108 H
Carbon Dioxide 23
BUN 41 H
Creatinine 1.3 H
Glucose 70
Calcium 7.5 L
Vital Signs:
Vital Signs
Temp Pulse Resp BP Pulse Ox
97.3 F 68 16 152/93 98
07/24/24 07:45 07/24/24 08:33 07/24/24 08:33 07/24/24 07:45 07/24/24 08:33
I&O
07/23/24 07/24/24 07/25/24
06:59 06:59 06:59
Output Total 50 / 50
Balance -50 / -50
Physical Exam
-
General: Appears Chronically Ill
HEENT: Normocephalic and Atraumatic
Respiratory: Decreased Breath Sounds; Negative Wheezes
Cardiac: Regular Rhythm and S1/S2
GI: Soft
Genito-urinary: No Costovertebral Tender
Neuro: AO x 3
Psych: Calm
Data Reviewed
-
Total Time Spent with Patient (in minutes): 42
Labs: Labs Reviewed by me
[2024-07-24] MEDS: NSS 1000 IV (10:50)
--- NOTE | 2024-07-24 13:01 | CM ---
CM reviewed chart, reviewed with Hospitalist, PT/OT evals placed, Palliaitive care consulted. Patient seen bedside with , Jeremiah, initial assessment completed. Patient resides with spouse in a split level home, five steps to enter, six steps
between levels. Patient has a rollator at home, shower chair, grab bars, home O2 ([place], 3L). Patient reports [facility] in past, [facility] ([facility] Patient confirms PCP Isai Luo, [facility], confirms
prescription coverage. Patient denies insecurities at home. Patient unsure if she would like [facility] at this time. CM will continue to follow for all discharge planning needs.
Plan; palliative care consulted, PT recommending VN, patient undecided on VN at this time.
--- NOTE | 2024-07-24 16:09 | W.CON.PAL ---
Consultation
-
Date/Time Consultation Requested: 07/24/2024
Date/Time Consultation Performed: 07/24/2024
Requesting Provider: Dr. Das
Performing Provider: Dr. Dickens
Reason for Consult: Goals of Care Discussion
Primary Diagnosis: SMA, weight loss, new mass
Reason for Admission
Illness Course/HPI
Shanna is a 84 y/o female with SMA syndrome with poor appetite and intake and 40lb weight loss over the past year. comorbid hx of COPD on home oxygen. during current hospitalizaion had imgaging which showed a mass on the right adrenal. palliative
care consulted to discuss goals of care.
Functional Status
at her baseline patient is functionally independent, driving. has been feeling unwell over the last few months however
lives with her spouse
Goals of Care Discussion
-
Individuals Present for Discussion & Relationship to Patient:
Patient
Patient able to participate in discussion at time of visit: Yes
Patient Goals
Patient just received news of this adrenal mass earlier today, has not told all of her family.
She states she does not think she could go and get a biopsy, due to her breathing and other medical problems, and likely would not pursue any treatment even it was confirmed to be hospice.
Discussed palliative vs. hospice services. provided brochure about each. she will talk more with her family about these options after she shares the news.
Code status has been changed to DNR
Pain & Symptom Assessment
-
today feels ok, denies pain or dyspnea.
SMA symptoms managed by small meals frequently
Objective Data
-
Objective Data:
Vital Signs
Temp Pulse Resp BP Pulse Ox
97.3 F 68 16 152/93 98
07/24/24 07:45 07/24/24 08:33 07/24/24 08:33 07/24/24 07:45 07/24/24 08:33
Laboratory Results
07/24/24 09:19
07/24/24 09:19
Total Protein 7.4 g/dl (6.3-8.2) 07/23/24 10:59
Albumin 4.3 g/dl (3.5-5.0) 07/23/24 10:59
Palliative Performance Scale
Palliative Performance Scale:
PPS Level Ambulation Activity & Evidence of Disease Self Care Intake Conscious Level
100% Full Normal Activity & Work; Full Intake Full
No Evidence of Disease
90% Full Normal Activity & Work; Full Normal Full
Some Evidence of Disease
80% Full Normal Activity with Effort Full Normal or Full
Some Evidence of Disease Reduced
70% Reduced Unable Normal Job/Work Full Normal or Full
Significant Disease Reduced
60% Reduced Unable Hobby/Housework Occasional Normal or Full or Confusion
Significant Disease Assistance Reduced
50% Mainly Sit/Lie Unable to do Any Work Considerable Normal or Full or Confusion
Extensive Disease Assistance Req'd Reduced
40% Mainly in Bed Unable to do Most Activity Mainly Assistance Normal or Full or Drowsy;
Extensive Disease Reduced +/- Confusion
30% Totally Bed Unable to do Any Activity Total Care Normal or Full or Drowsy;
Bound Extensive Disease Reduced +/- Confusion
20% Totally Bed Bound Unable to do Any Activity Total Care Minimal to Full or Drowsy;
Extensive Disease Sips +/- Confusion
10% Totally Bed Bound Unable to do Any Activity Total Care Mouth Care Drowsy or Coma;
Extensive Disease Only +/- Confusion
0%
PPS Score Level:
Palliative Performance Score Response
Palliative Performance Score Response: 50%
Physical Exam
-
General: No Apparent Distress and Appears Chronically Ill
Neuro: Awake and Alert
Psych: Calm
Assessment / Plan
-
Assessment/Plan:
Patient processing information from testing earlier today
Leaning towards no workup and no treatment of suspected malignancy
provided information about hospice and palliative care, she will discuss with family if interested
Code status dnr
floor time 60 min
Care Reviewed
Data Reviewed
Reviewed with: Patient
[2024-07-24] MEDS: DESYREL 50 MG PO (20:39)
[2024-07-24] MEDS: TYLENOL 650 MG PO (20:39)
[2024-07-24] MEDS: LIPITOR 10 MG PO (20:40)
[2024-07-24] MEDS: REMERON 15 MG PO (20:40)
[2024-07-24] MEDS: TOPROL XL 50 MG PO (20:40)
[2024-07-24] MEDS: XANAX 0.25 MG PO (20:56)
[2024-07-25] MEDS: NSS 1000 IV
[2024-07-25 03:00] VITALS: BP 96/48
[2024-07-25 06:00] VITALS: BMI 18.2
[2024-07-25 06:57] LABS: Hematocrit 28.9 % (37.0-47.0); Hemoglobin 9.2 g/dL (12.0-16.0); Mean Corp Hgb Conc. 31.8 g/dL (33.0-37.0); Mean Corpuscular Hgb 30.6 pg (27.0-31.0); Mean Platelet Volume 10.6 fL (7.4-10.4); Platelet Count 253 10^3/uL (130-400); Red Blood Cell Count 3.01 10^6/uL (4.20-5.40); Red Cell Dist. Width 15.1 % (11.5-14.5)
[2024-07-25 07:22] LABS: Blood Urea Nitrogen 36 mg/dl (7-17); Calcium 7.1 mg/dl (8.4-10.2); Carbon Dioxide 24 mmol/L (22-30); Chloride 108 mmol/L (98-107); Estimated Creatinine Clearance 23 ml/min; Glucose 83 mg/dl (70-99); Potassium 3.7 mmol/L (3.5-5.1); Sodium 141 mmol/L (135-145)
[2024-07-25] MEDS: ADVAIR HFA 115/21 MCG INHALER 2 PUFF INH (07:34)
[2024-07-25] MEDS: SPIRIVA RESPIMAT 2.5 MCG 2 PUFF INH (07:35)
[2024-07-25 08:16] VITALS: BP 144/75
--- NOTE | 2024-07-25 08:18 | W.PN.HOSP.TC ---
Today's Communication/Plan
-
dc home with VN later this afternoon
resume Lasix at discharge
Assessment / Plan
Assessment / Plan
Assessment:
Acute GI uspet (N/V, abd pain) on chronic abdominal pain and poor appetite
Known hx of SMA syndrome, GERD
complicating factor of MJ use
- d/w patient for small frequent meals, low fat, low fiber recommended
- cessation of MJ
- supplements; nutrition following
- supportive care
- declines G/J tube due to age, COPD and risk of procedure
Low appetite
Weight loss 40lbs in 1 year (severe protein caloric malnutrition of chronic illness)
Renal mass on CT
- patient opts against MRI or further diagnostics, aware she might have adrenal malignancy.
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
hx of Polycystic kidney disease
- Cr improving with IVF
Chronic Leukocytosis - unclear etiology
hx of PAF
- continue Toprol/Diltiazem and Eliquis
Benign HTN
- on Losartan
hx of CVA s/p tPA
Hx Epistaxis s/p Cauterization
COPD, advanced with pulm HTN
Chronic hypoxic respiratory failure on 3L NC
Kidney stones
Rheumatoid arthritis (on Humira)
Anxiety on chr Alprazolam HS to be cont.
RA on Humira
HLD
DVT ppx: Eliquis
Code: Full
Dispo: Pall care consulted and patient considering ongoing pall care services vs hospice, with outpatient follow up.
Anticipated Discharge: Today
Subjective/Interval History
-
Date of Service: July 25, 2024
tolerating low fat low residue diet
Objective Data
-
Labs:
Laboratory Results
07/25/24
06:11
WBC 9.0
Hgb 9.2 L
Hct 28.9 L
Plt Count 253
Sodium 141
Potassium 3.7
Chloride 108 H
Carbon Dioxide 24
BUN 36 H
Creatinine 1.4 H
Glucose 83
Calcium 7.1 L
Vital Signs:
Vital Signs
Temp Pulse Resp BP Pulse Ox
97.5 F 66 18 144/75 100
07/25/24 08:16 07/25/24 08:16 07/25/24 08:16 07/25/24 08:16 07/25/24 08:16
I&O
07/24/24 07/25/24 07/26/24
06:59 06:59 06:59
Intake Total 1200 / 1200
Output Total 50 / 50
Balance 1150 / 1150
Physical Exam
-
General: No Apparent Distress and Appears Chronically Ill
HEENT: Normocephalic and Atraumatic
Respiratory: Decreased Breath Sounds
Cardiac: Regular Rhythm and S1/S2
Neuro: AO x 3
Psych: Calm
Data Reviewed
-
Total Time Spent with Patient (in minutes): 44
Labs: Labs Reviewed by me
[2024-07-25] MEDS: CARDIZEM CD 240 MG PO (09:31)
[2024-07-25] MEDS: BUSPAR 10 MG PO (09:32)
[2024-07-25] MEDS: ELIQUIS 2.5 MG PO (09:32)
[2024-07-25] MEDS: PROTONIX 40 MG PO (09:34)
[2024-07-25] MEDS: COZAAR 50 MG PO (09:34)
[2024-07-25] MEDS: NSS IV (11:05)
[2024-07-25] MEDS: LASIX 40 MG PO (11:06)
[2024-07-25 11:57] VITALS: BP 131/62
--- NOTE | 2024-07-25 12:41 | W.DS.TRANS ---
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
-
Discharge Instructions:
Discharge Diagnosis/Procedures acute on chronic GI upset from SMA syndrome,
GERD, gastroparesis, Marijuana gummie use
Diet Low Fat,Low Fiber,As tolerated
Additional Diets small, frequent meals
Activity As tolerated
Bathing Restrictions None
Other Services VN
Instructions:
Stand-Alone Forms:
Changes to Home Medications: No
Discharge Medications:
DC Medications w/original date entered in [facility]
apixaban 2.5 mg tablet 2.5 mg PO BID Blood clot prevention/tx 10/19/22
diltiazem HCl 240 mg capsule,extended release 24 hr 240 mg PO DAILY Arrhythmia 10/19/22
fluticasone 250 mcg-salmeterol 50 mcg/dose blistr powdr for inhalation (Wixela Inhub) 1 inh inhalation R BID Lung/breathing issues 10/19/22
simvastatin 20 mg tablet 20 mg PO HS High cholesterol 10/19/22
adalimumab 40 mg/0.4 mL subcutaneous pen kit (Humira(CF) Pen) 40 mg SC Q3W Autoimmune Disorder 09/27/23
metoprolol succinate 50 mg tablet,extended release 24 hr 50 mg PO HS Blood Pressure 09/27/23
tiotropium bromide 18 mcg capsule with inhalation device (Spiriva with HandiHaler) 2 cap inhalation R DAILY Lung/Breathing Issues 09/27/23
buspirone 5 mg tablet 10 mg (2 x 5 mg) PO TID Mental Health/Anxiety #0 tabs 10/05/23
alprazolam 0.25 mg tablet 0.25 mg PO HS Mental Health/Anxiety 07/23/24
furosemide 40 mg tablet 40 mg PO DAILY Fluid Retention/Swelling 07/23/24
losartan 50 mg tablet 50 mg PO DAILY Blood Pressure 07/23/24
mirtazapine 15 mg tablet 15 mg PO HS Depression 07/23/24
rabeprazole 20 mg tablet,delayed release 20 mg PO DAILY Gastrointestinal Issue 07/23/24
trazodone 50 mg tablet 50 mg PO HS Sleep 07/23/24
Home Medication Changes
Pending Results: No
Total time spent discharging patient (in min): 41
--- NOTE | 2024-07-25 12:47 | CM ---
Pt for dc today.
was at bedside and will provide transport to home.
IMM was verbally reviewed with and pt and both understanding and ready for dc.
Pt will dc to home with referral to VN and Palliative Care.
== END 2024-07-25 17:38 | disposition home health service (06) | DRG 393 ==
LOC: 4 WEST ACU 20:01
PROVIDERS: Nurse Practitioner Family; Physician Assistant; ADMITTING PHYSICIAN Internal Medicine; ATTENDING PHYSICIAN Internal Medicine; CONSULT PHYSICIAN Internal Medicine Gastroenterology; CONSULT PHYSICIAN Internal Medicine Hospice and Palliative Medicine; EMERGENCY PHYSICIAN Emergency Medicine; FAMILY PHYSICIAN Otolaryngology
DX: K55.1 Chronic vascular disorders of intestine (principal); E43 Unspecified severe protein-calorie malnutrition; N17.9 Acute kidney failure, unspecified; Z68.1 Body mass index [BMI] 19.9 or less, adult; I50.32 Chronic diastolic (congestive) heart failure; I13.0 Hypertensive heart and chronic kidney disease with heart failure and stage 1 through stage 4 chronic kidney disease, or unspecified chronic kidney disease; J96.11 Chronic respiratory failure with hypoxia; J98.11 Atelectasis; E87.1 Hypo-osmolality and hyponatremia; N39.0 Urinary tract infection, site not specified; K21.9 Gastro-esophageal reflux disease without esophagitis; K31.84 Gastroparesis; Z79.899 Other long term (current) drug therapy; J44.9 Chronic obstructive pulmonary disease, unspecified; N18.32 Chronic kidney disease, stage 3b; I48.0 Paroxysmal atrial fibrillation; Z86.73 Personal history of transient ischemic attack (TIA), and cerebral infarction without residual deficits; I27.20 Pulmonary hypertension, unspecified; N20.0 Calculus of kidney; M06.9 Rheumatoid arthritis, unspecified; Z79.620 Long term (current) use of immunosuppressive biologic; F41.9 Anxiety disorder, unspecified; Z66 Do not resuscitate; Z87.891 Personal history of nicotine dependence; Z90.49 Acquired absence of other specified parts of digestive tract; K57.30 Diverticulosis of large intestine without perforation or abscess without bleeding; B96.1 Klebsiella pneumoniae [K. pneumoniae] as the cause of diseases classified elsewhere; R13.10 Dysphagia, unspecified; E86.9 Volume depletion, unspecified; E78.00 Pure hypercholesterolemia, unspecified; Z79.01 Long term (current) use of anticoagulants; K52.9 Noninfective gastroenteritis and colitis, unspecified; Z80.0 Family history of malignant neoplasm of digestive organs; N28.1 Cyst of kidney, acquired; Z90.710 Acquired absence of both cervix and uterus; Z99.81 Dependence on supplemental oxygen
CPT/HCPCS: 74176; 80048; 80053; 83605; 83690; 85025; 85027; 87045; 87046; 87427; 87798; 93005; 94640; 96361; 96374; 96375; 97162; 97166; 99285

== ENCOUNTER 2024-12-23 04:26 | Inpatient (IN) | payer MEDICARE, OTHER, SELFPAY ==
[2024-12-22 20:07] VITALS: BP 170/75
[2024-12-22 20:34] LABS: % Basophils 0.5 % (0-2); % Immature Granulocytes 0.4 % (0-0.5); % Lymphocytes 38.7 % (20.5-51.1); % Monocytes 8.7 % (1.7-9.3); % Neutrophils 49.7 % (42.2-75.2); Absolute Basophils 0.1 10^3/uL (0-0.2); Absolute Eosinophils 0.3 10^3/uL (0-0.7); Absolute Immature Granulocytes 0.1 10^3/uL (0-0.05); Absolute Lymphocytes 5.2 10^3/uL (1.2-3.4); Absolute Monocytes 1.2 10^3/uL (0.1-0.6); Absolute Neutrophils 6.7 10^3/uL (1.4-6.5); Hematocrit 32.2 % (37.0-47.0); Hemoglobin 10.7 g/dL (12.0-16.0); Mean Corp Hgb Conc. 33.2 g/dL (33.0-37.0); Mean Corpuscular Hgb 29.6 pg (27.0-31.0); Mean Platelet Volume 9.7 fL (7.4-10.4); Nucleated Red Blood Cells % 0 %; Platelet Count 358 10^3/uL (130-400); Red Blood Cell Count 3.62 10^6/uL (4.20-5.40); Red Cell Dist. Width 15.8 % (11.5-14.5); White Blood Cell Count 13.5 10^3/uL (4.8-10.8)
[2024-12-22 20:48] LABS: ALT (SGPT) 14 U/L (0-35); AST (SGOT) 25 U/L (14-36); Albumin 3.9 g/dl (3.5-5.0); Alkaline Phosphatase 87 U/L (38-126); Blood Urea Nitrogen 19 mg/dl (7-17); Calcium 8.8 mg/dl (8.4-10.2); Carbon Dioxide 24 mmol/L (22-30); Chloride 99 mmol/L (98-107); Glucose 103 mg/dl (70-99); Potassium 4.5 mmol/L (3.5-5.1); Sodium 134 mmol/L (135-145); Total Bilirubin 0.6 mg/dl (0.2-1.3); Total Protein 6.5 g/dl (6.3-8.2)
[2024-12-22 20:58] LABS: Troponin I < 0.012 ng/ml
[2024-12-22 23:50] LABS: Lactic Acid 2.2 mmol/L (0.7-2.0)
[2024-12-23] VITALS (17 sets, daily range): BP systolic 105–153; BP diastolic 50–94; BMI 15.6; BMI 16.1
--- NOTE | 2024-12-23 00:42 | ED.GENMED ---
History of Present Illness
General
Chief Complaint: Weakness
Time Seen by Provider: 12/23/24 00:42
History of Present Illness
History of Present Illness:
TIME OF INITIAL ENCOUNTER: 12:45 AM
HPI: The patient presents with a general unwell feeling, increased anxiety, shortness of breath, chills including temperature over 100 �F. She reportedly was recently placed on Cipro for possible UTI. She chronically wears oxygen for COPD.
EXAM:
GENERAL: The patient is ill-appearing, she is tachypneic with increased work of breathing
HEENT: Moist oral mucosa
CARDIOVASCULAR: No murmurs, tachycardic heart rate, irregular rhythm, No chest wall tenderness
PULMONARY: Tachypneic with decreased breath sounds equally
ABDOMEN: Soft with no peritoneal signs, no tenderness
NEUROLOGIC: Good strength all extremities, no coordination deficits
PSYCHIATRIC: Appropriate mental status, reasonable insight and judgement, but appeared anxious upon arrival
EXTREMITIES: Nontender, no edema, moves all extremities equally
SKIN: No rash, no lesions
NUMBER AND COMPLEXITY OF PROBLEMS ADDRESSED AT THE ENCOUNTER
� Chronic conditions affecting care: COPD, A-fib on Eliquis, high blood pressure, anxiety
� Acute Exacerbation and/or Progression of Chronic Illness: This is an acute problem
� Differential Diagnosis includes: COPD exacerbation, anxiety, rapid A-fib, UTI/sepsis, pneumonia
AMOUNT AND/OR COMPLEXITY OF DATA TO BE REVIEWED AND ANALYZED
� I performed an independent evaluation of and my interpretation is:
EKG: A-fib ventricular rate 126, nonspecific ST abnormality
CT:
X-rays: Chest x-ray shows elevation of the right hemidiaphragm but no sign of pneumonia, findings consistent with COPD
Laboratory Studies: Troponin less than 0.012, lactic 2.2, creatinine 1.4 she is near baseline
Other:
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
� Clinical information was obtained by an independent historian: I spoke to and son and daughter at bedside
� Prescriptions/Medications Considered but not given:
� Further testing considered but not performed:
RISK OF COMPLICATIONS AND/OR MORBIDITY OR MORTALITY OF PATIENT MANAGEMENT
� Social determinants of health affecting care: Lives at home
� Discussion with other providers:
� Escalation of care including admission/observation vs risk of discharge considered: The patient is tachypneic with history of COPD and is tachypneic. Gave DuoNebs and steroids. She was also found to be in rapid A-fib.
Placing on Cardizem. Mild leukocytosis noted with elevated lactic of 2.2
ANY OTHER UPDATES:
2 AM: On reassessment after rate is controlled and she received Ativan, fluids, and treatment for COPD, she is much improved. She is still on a Cardizem drip.
Past History
Past History
ED Past Medical History: Arrthythmia (Afib), COPD, HTN and Hypercholesterolemia
ED Past Surgical History: Appendectomy and Gynecological (hysterectomy)
Social History
Tobacco: Former smoker
Alcohol: None
Drug: Marijuana
Personal:
Living: with family
Phy Exam
Physical Exam
Physical Exam:
See HPI
Course
Orders/Labs/Results
Orders:
Orders
12/22/24 20:12
Electrocardiogram (*1) Urgent
Reason for Study: Tachycardia
EKG- Treatment ONCE
12/22/24 20:24
Complete Blood Count/With Diff Urgent
Comprehensive Metabolic Panel Urgent
Troponin I Urgent
12/22/24 22:21
Urinalysis Reflex To Culture Urgent
Date Specimen was Collected: 12/22/24
Time Specimen was Collected: 20:12
12/22/24 23:29
Lactate Level [Lactic Acid] Urgent
12/23/24 00:42
CR Chest Portable - 1 View Urgent
Comment:
Reason For Exam: sob copd leukocytosis
Reason Study Needs to be Portable: Unable to Transport
12/23/24 00:45
0.9% Sodium Chloride 500 ml [Nss] 500 ml IV BOLUS
Diltiazem 125 mg/125 ml Nss [Cardizem] 125 mg in 125 ml IV PER PROTOCOL
Initial dose in mg/hr, then titrate:: 5
Titrate to keep:: Heart rate 80-100 bpm
Titrate by mg/hr:: 5 mg/hr
Frequency of titrations (minutes):: 15
Maximum dose in mg/hr:: 15
Diltiazem HCl [Cardizem] 10 mg IV NOW STA
Ipratropium/Albuterol Sulfate [Duoneb] 3 ml INH R NOW STA
Lorazepam [Ativan] 0.5 mg IV NOW STA
MethylPREDNISolone PF [Solu-Medrol Pf] 125 mg IV NOW STA
12/23/24 00:58
COVID-19 Antigen Urgent
Source: Nasal Swab
Urine Microscopic Reflex Cult Urgent
Influenza A+B Rapid Molecular Urgent
TERRENCE Source: Nasal Swab
Specimen Description:
Abnormal Lab Results
12/22/24 12/22/24 12/23/24
20:24 23:29 00:58
WBC 13.5 H 10^3/uL
(4.8-10.8)
RBC 3.62 L 10^6/uL
(4.20-5.40)
Hgb 10.7 L g/dL
(12.0-16.0)
Hct 32.2 L %
(37.0-47.0)
RDW 15.8 H %
(11.5-14.5)
Abs Immat Gran (auto) 0.1 H 10^3/uL
(0-0.05)
Absolute Neuts (auto) 6.7 H 10^3/uL
(1.4-6.5)
Absolute Lymphs (auto) 5.2 H 10^3/uL
(1.2-3.4)
Absolute Monos (auto) 1.2 H 10^3/uL
(0.1-0.6)
Sodium 134 L mmol/L
(135-145)
BUN 19 H mg/dl
(7-17)
Creatinine 1.4 H mg/dL
(0.6-1.0)
Glucose 103 H mg/dl
(70-99)
Lactic Acid 2.2 H mmol/L
(0.7-2.0)
Urine Bacteria (Reflex) Few A
(Negative)
Urine Albumin (Reflex) 2+ A
(Neg - Trace)
12/22/24 20:24
12/22/24 20:24
Vital Signs
Initial and Last Documented VS:
Initial Vital Signs
Temp Pulse Resp BP Pulse Ox
36.8 C 132 25 170/75 96
12/22/24 20:07 12/22/24 20:07 12/22/24 20:07 12/22/24 20:07 12/22/24 20:07
Last Documented Vital Signs
Temp Pulse Resp BP Pulse Ox
36.8 C 85 28 137/84 95
12/22/24 20:07 12/23/24 01:24 12/23/24 01:24 12/23/24 01:24 12/23/24 01:24
*Critical Care Note
Total Time (30-74mins, 75-104mins- exclusive of procedures): Not Applicable
ED Attending Note
-
Portions of this chart may have been created with voice recognition software.� Occasional wrong word or��sound alike� substitutions may have occurred due to the inherent limitations of voice recognition software.
Discharge Plan
Departure
Patient Disposition: Admit
Date of Disposition: 12/23/24
Time of Disposition: 01:55
Presentation/result/management discussed w/ accepting MD/DO: Hospitalist
Discharge Problem:
Atrial fibrillation with rapid ventricular response
Prescriptions:
No Action
fluticasone propion-salmeterol [Wixela Inhub] 250-50 mcg/dose Blister With Device
1 inh INHALATION R BID
diltiazem HCl 240 mg Capsule,Extended Release 24hr
240 mg PO DAILY
simvastatin 20 mg Tablet
20 mg PO HS
apixaban 2.5 mg Tablet
2.5 mg PO BID
metoprolol succinate 50 mg Tablet Extended Release 24 Hr
50 mg PO HS
tiotropium bromide [Spiriva with HandiHaler] 18 mcg Capsule, W/Inhalation Device
2 cap INHALATION R DAILY
Patient Comments:
09/27/2023, pt. states that she takes 2 inhalations daily.
Humira(CF) Pen 40 mg/0.4 mL pen injector kit
40 mg SC Q3W
buspirone 5 mg Tablet
10 mg PO TID Qty: 0 0RF
losartan 50 mg tablet
50 mg PO DAILY
furosemide 40 mg tablet
40 mg PO DAILY
rabeprazole 20 mg tablet,delayed release (DR/EC)
20 mg PO DAILY
alprazolam 0.25 mg tablet
0.25 mg PO HS
mirtazapine 15 mg tablet
15 mg PO HS
trazodone 50 mg tablet
50 mg PO HS
Referrals:
UNKNOWN,NO INTERVIEW [Family Provider] -
Interventions
Interventions:
*Risk Screen - Suicide Last Done: 12/22/24 20:07
*General Assessment Last Done: 12/22/24 20:07
*Neglect/Abuse Screening Last Done: 12/22/24 20:07
*ED- Fall Risk Assessment Last Done: 12/22/24 20:07
*ED COVID-19 Vaccine History Last Done: 12/22/24 20:07
ED- Cardiac Assessment Last Done: 12/23/24 00:35
ED- Neurological Assessment Last Done: 12/23/24 00:35
ED- Pulmonary Assessment Last Done: 12/23/24 00:35
Discharge Date and Time
Print Language: CYMRO
[2024-12-23] MEDS: CARDIZEM 10 MG IV (01:13)
[2024-12-23] MEDS: DUONEB 3 ML INH ×5 (01:13→20:39)
[2024-12-23 01:17] LABS: Urine Albumin 2+ (Neg - Trace); Urine Bilirubin Negative (Negative); Urine Character Clear (Clear); Urine Color Yellow; Urine Glucose Negative (Negative); Urine Ketone Negative (Negative); Urine Leukocyte Negative (Negative); Urine Nitrite Negative (Negative); Urine Occult Blood Negative (Negative); Urine Specific Gravity 1.005 (<1.030); Urine Urobilinogen Negative (Neg - 1+)
[2024-12-23] MEDS: ATIVAN 0.5 MG IV (01:18)
[2024-12-23] MEDS: NSS 500 IV (01:18)
[2024-12-23] MEDS: SOLU-MEDROL PF 125 MG IV (01:20)
[2024-12-23] MEDS: CARDIZEM 125 IV (01:24)
[2024-12-23 01:30] LABS: Urine Bacteria Few (Negative); Urine Red Blood Cell 0-2 /HPF (0-2); Urine White Cell 0-2 /HPF (0-5)
[2024-12-23 01:31] LABS: COVID-19 Antigen Negative (Negative)
--- NOTE | 2024-12-23 04:11 | HPS.HSE ---
Family Physician
-
Family Physician: NO INTERVIEW UNKNOWN
Chief Complaint
-
Nausea. SOB
History of Present Illness
Patient is an 84y F with PMH significant for COPD, CKD, chronic leukocytosis and A-Fib who presents to ED complaining of nausea and SOB. Patient states that she had some abdominal discomfort and nausea about 3 days ago. She spoke with her PCP
who started her on abx for presumed urinary infection. She states that she has had worsening nausea since that time. She denies any emesis. She denies any bloody stools, diarrhea, etc. No urinary complaints. No chest pain. She does complain of
SOB - worse with activity / exertion. No fevers / chills.
Today patient felt more weak and nauseated and presented to the ED for further evaluation.
Medical History
Past Medical History
Past Medical History: Reports Other
Additional Past Medical History:
Hypertension
SMA Syndrome
HFpEF
COPD
Chronic Hypoxemic Respiratory Failure
A-Fib
Anxiety
GERD
CKD III
Chronic Leukocytosis
ASCVD / CVA s/p tPA
Rheumatoid Arthritis
Past Surgical History: Reports Other
Additional Past Surgical History:
appendectomy
hysterectomy
Social History
Tobacco: Former Smoker (quit 1989)
Alcohol: None
Drug: None
Personal:
Living: With Family
Employment: Retired
Family History
Family History: Not pertinent
Allergies / Home Medications
Allergies reflects when Allergies were last updated in [facility].
Home Medications with original date entered in [facility]
Allergy/Medication List:
Allergies
Allergy/AdvReac Type Severity Reaction Status Date / Time
No Known Drug Allergies Allergy Unknown Verified 07/23/24 09:49
Home Medications
apixaban 2.5 mg tablet 2.5 mg PO BID Blood clot prevention/tx 10/19/22
diltiazem HCl 240 mg capsule,extended release 24 hr 240 mg PO DAILY Arrhythmia 10/19/22
fluticasone 250 mcg-salmeterol 50 mcg/dose blistr powdr for inhalation (Parisa Inhub) 1 inh inhalation R BID Lung/breathing issues 10/19/22
simvastatin 20 mg tablet 20 mg PO HS High cholesterol 10/19/22
adalimumab 40 mg/0.4 mL subcutaneous pen kit (Humira(CF) Pen) 40 mg SC Q3W Autoimmune Disorder 09/27/23
tiotropium bromide 18 mcg capsule with inhalation device (Spiriva with HandiHaler) 2 cap inhalation R DAILY Lung/Breathing Issues 09/27/23
buspirone 5 mg tablet 10 mg (2 x 5 mg) PO TID Mental Health/Anxiety #0 tabs 10/05/23
alprazolam 0.25 mg tablet 0.25 mg PO HS Mental Health/Anxiety 07/23/24
furosemide 40 mg tablet 20 mg PO DAILY Fluid Retention/Swelling 07/23/24
losartan 50 mg tablet 50 mg PO DAILY Blood Pressure 07/23/24
mirtazapine 15 mg tablet 15 mg PO HS Depression 07/23/24
rabeprazole 20 mg tablet,delayed release 20 mg PO DAILY Gastrointestinal Issue 07/23/24
trazodone 50 mg tablet 100 mg PO HS Sleep 07/23/24
estradiol 0.01% (0.1 mg/gram) vaginal cream vaginal 12/23/24
metoprolol succinate 12/23/24
ondansetron 4 mg disintegrating tablet mg 12/23/24
Review of Systems
-
History Source: Patient
A 12 point ROS was completed and negative except as noted: Yes
Constitutional: Reports Fatigue; Denies Fever or Chills
Respiratory: Reports Trouble Breathing; Denies Cough
Cardiac: Denies Chest Pain or Palpitations
Abdomen/GI: Reports Abdominal Pain, Nausea and Anorexia; Denies Vomiting, Diarrhea, Constipated, Bloody Stools or Black Stools
: Denies Dysuria or Frequency
Musculoskeletal: Denies Joint Pain or Edema
Neurological: Denies Dizzy or Headache
Psych: Denies Depression or Anxiety
Physical Exam
Vital Signs
Vital Signs
Temp Pulse Resp BP Pulse Ox
98.2 F 103 15 117/74 100
12/22/24 20:07 12/23/24 04:00 12/23/24 04:00 12/23/24 04:00 12/23/24 04:00
Physical Exam
General: Other (Frail, 84y F in no acute distress.)
HEENT: Other (Dry MM, neck supple. )
Respiratory: Other (BS somewhat diminished throughout. No wheezing at present.)
Cardiac: S1/S2, Irregular Rhythm and Tachycardia; No Murmur
GI: Soft, Non Tender, Non Distended and Normal Bowel Sounds
Musculoskeletal: No Clubbing, No Cyanosis, No Edema and Other (Chronic LE hyperpigmentation / scattered ecchymoses.)
Neuro: AO x 3
Laboratory Results
-
12/22/24 20:24
12/22/24 20:24
Laboratory Results
Lactic Acid 2.2 mmol/L (0.7-2.0) H 12/22/24 23:29
Total Bilirubin 0.6 mg/dl (0.2-1.3) 12/22/24 20:24
AST 25 U/L (14-36) 12/22/24 20:24
ALT 14 U/L (0-35) 12/22/24 20:24
Alkaline Phosphatase 87 U/L (38-126) 12/22/24 20:24
Troponin I < 0.012 ng/ml 12/22/24 20:24
Impression/Plan
-
A/P: Patient is an 84y F with PMH significant for COPD, CHF, A-Fib and SMA syndrome who presents to ED complaining of nausea and SOB.
Paroxysmal A-Fib with Rapid Ventricular Response
- Admit for further evaluation and treatment.
- Continue IV diltiazem for now and titrate as needed.
- Resume usual home meds and wean off of Cardizem gtt as able.
- Continue Eliquis for stroke risk reduction.
SMA Syndrome
- Nausea and abdominal pain.
- Continue supportive care.
- Avoid hypotension.
- Antiemetics as needed.
COPD
- Perhaps mild exacerbation with wheezing reported on initial arrival.
- Now much improved.
- Nebs ATC and PRN.
- Monitor off of systemic steroids for now.
- Follow for any new / worsening symptoms.
CKD III
- Stable. Renal function is at / near known baseline.
- Follow for changes.
Benign Hypertension
- Stable. Continue current med regimen.
- Adjust to avoid hypotension as noted above.
Generalized Anxiety
- Stable. Continue usual outpatient med regimen.
RA on Humira
- Stable. No acute joint pain or other issues.
Anemia of Chronic Disease
- Stable. Hgb is at / near known baseline.
- Follow for any changes.
Adrenal Lesion
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
- She has decided against any further evaluation of this.
- Is followed by Palliative Care as an outpatient.
DVT Prophylaxis: On Eliquis
Code Status: DNR
[2024-12-23 06:22] LABS: Hemoglobin 9.8 g/dL (12.0-16.0); Mean Corp Hgb Conc. 31.6 g/dL (33.0-37.0); Mean Corpuscular Hgb 28.7 pg (27.0-31.0); Mean Corpuscular Volume 90.9 fL (81.0-99.0); Mean Platelet Volume 9.6 fL (7.4-10.4); Platelet Count 324 10^3/uL (130-400); Red Blood Cell Count 3.41 10^6/uL (4.20-5.40); Red Cell Dist. Width 15.8 % (11.5-14.5); White Blood Cell Count 12.6 10^3/uL (4.8-10.8)
--- NOTE | 2024-12-23 06:31 | PTCARENOTE ---
Addendum entered by Misty Ayala RN 12/23/24 07:08:
Heart rate dipping in the 50s- afib. mail caller provider made aware and ok to discontinue.
Original Note:
Received patient from the ED around 0600. Afib on the monitor in the 70s with cardizem gtt at 5 mcg/min. Complains of SOB on 3 liters NC. SPO2 97 percent.
[2024-12-23 06:45] LABS: Blood Urea Nitrogen 20 mg/dl (7-17); Calcium 8.4 mg/dl (8.4-10.2); Carbon Dioxide 23 mmol/L (22-30); Chloride 102 mmol/L (98-107); Estimated Creatinine Clearance 19 ml/min; Glucose 129 mg/dl (70-99); Potassium 4.5 mmol/L (3.5-5.1); Sodium 136 mmol/L (135-145); eGFR 34.15
[2024-12-23] MEDS: ADVAIR HFA 115/21 MCG INHALER 2 PUFF INH ×2 (07:13→20:38)
[2024-12-23] MEDS: CARDIZEM CD 240 MG PO (09:52)
[2024-12-23] MEDS: PROTONIX 40 MG PO (09:52)
[2024-12-23] MEDS: TOPROL XL 25 MG PO (09:53)
[2024-12-23] MEDS: ELIQUIS 2.5 MG PO ×2 (09:53→19:52)
[2024-12-23] MEDS: COZAAR 50 MG PO (09:53)
[2024-12-23] MEDS: BUSPAR 10 MG PO ×3 (09:57→21:41)
--- NOTE | 2024-12-23 11:27 | W.PN.HOSP.TC ---
Today's Communication/Plan
-
Continue diltiazem and metoprolol XL at current dose
May need to increase metoprolol if HR accelerates
Encourage frequent small meals, Ensure with meals
Possible discharge if stable tomorrow
Assessment / Plan
Assessment / Plan
#Permanent AF with RVR
-Presented with RVR and heart rate near 130/min, likely related to nausea/abdomen symptoms
-Home regimen includes diltiazem ER 240 and metoprolol succinate 25 mg daily and reduced dose Eliquis
-Nonvalvular etiology; no known history of electrophysiologic interventions
-Status post IV diltiazem drip with resolution of RVR, back on oral regimen
-Most recent HR 71/min and rate controlled AF; hemodynamically stable
-Continue to monitor on telemetry for now, consider increase metoprolol dose if needed
#SMA syndrome
#Left renal artery stenosis
#Severe protein calorie malnutrition
-CT A/P with IV contrast in 09/2023 showed marked atherosclerosis of the proximal SMA and proximal left renal artery
-Symptomatically with intestinal angina that is limited her oral intake over time; BMI today 16.1, follows palliative
-Home regimen includes moderate intensity statin; not on antiplatelet but is on DOAC for AF
-Symptomatically has improved since arrival
-Encourage multiple small meals and monitor
-Ensure BID AC
#Chronic HFpEF
#Severe pulmonary hypertension (group 3)
-Last echocardiogram with normal biventricular size and function, severe TR and pulmonary hypertension
-Likely at risk for RV predominant heart failure with significant pulmonary hypertension from lung disease
-Home medications include Lasix 20 mg daily, not currently on GDMT with SGLT2i
-Home meds do include afterload reduction with ARB, rate control with metoprolol
-Appears euvolemic at this time
#COPD without exacerbation
-No recent PFTs to review, Home regimen includes Wixela and Spiriva
-Initial concerns for exacerbation on arrival however symptomatically improved, stable on RA here
-No wheezes or other signs of bronchospasm on exam today
-Continue to monitor on RA on home maintenance regimen
#CKD stage IIIb
-Likely related to age and possibly hypertension history
-Baseline creatinine likely near 1.3, has been at baseline here
-Has AoCD related to CKD and RA; no acidemia or bone mineral disease
#Primary hypertension
-Possibly related to CKD, no other history of hypertensive systemic disease
-Home regimen includes losartan, diltiazem, and metoprolol
-Blood pressure here at goal for age
#Rheumatoid arthritis
#Immunosuppressed status
#Anemia of chronic disease
-Home regimen includes Humira every 3 weeks
-No history of CAD or ILD associated, does have anemia
-No signs of flare, hemoglobin currently near baseline
#Adrenal lesion
-Unclear etiology, patient has chosen to not have further workup
-Based on labs does not appear to be metabolically active
#Chronic leukocytosis
-Unclear etiology, possibly related to medications v. primary bone marrow etiology/malignancy
-Trend CBC
#Anxiety
#Tremor
-Patient states she has significant anxiety, has tremor at the moment that she relates to her anxiousness
-Tremor does wax and wane, seems to improve when she is distracted
-Continue home BuSpar, alprazolam PRN
Diet: Regular
DVT prophylaxis: SCDs
CODE STATUS: DNR
Anticipated Discharge: 24 - 48 hours
Subjective/Interval History
-
Date of Service: December 23, 2024
Seen and examined at the bedside. No acute events reported since admission. AFVSS at time of my eval
Was weaned off of diltiazem drip, heart rate high 80s with permanent AF. She states her abdomen pain and nausea are improved as of this morning
Denies any new complaints as well
Objective Data
-
Labs:
Laboratory Results
12/23/24
06:02
WBC 12.6 H
Hgb 9.8 L
Hct 31.0 L
Plt Count 324
Sodium 136
Potassium 4.5
Chloride 102
Carbon Dioxide 23
BUN 20 H
Creatinine 1.5 H
Glucose 129 H
Calcium 8.4
Vital Signs:
Vital Signs
Temp Pulse Resp BP Pulse Ox
97.6 F 71 18 141/65 96
12/23/24 07:25 12/23/24 07:17 12/23/24 07:17 12/23/24 06:00 12/23/24 11:27
I&O
12/22/24 12/23/24 12/24/24
06:59 06:59 06:59
Intake Total 360 / 360
Balance 360 / 360
Review of Systems
-
History Source: Patient
All other systems: Reviewed and negative
Physical Exam
-
General: Well Developed, Comfortable, Appears Chronically Ill and Cachectic
HEENT: Normocephalic, Atraumatic, Moist Mucous Membranes and Anicteric
Respiratory: Clear to Auscultation and Non Labored Respirations; Negative Accessory Resp Muscle Use
Cardiac: S1/S2 and Irregular Rhythm; Negative Murmur, Rub, Gallop or Tachycardic
GI: Soft, Nontender, Nondistended and Normal Bowel Sounds
Musculoskeletal: No Clubbing, No Cyanosis and No Edema
Skin: Warm and Dry; Negative Rash
Neuro: AO x 3 and Nonfocal/Grossly Intact; Negative Tremors
Psych: Calm
Data Reviewed
-
Labs: Labs Reviewed by me, Discussed with Nurse and Discussed with Patient
[2024-12-23] MEDS: XANAX 0.25 MG PO ×2 (13:20→21:42)
--- NOTE | 2024-12-23 14:00 | PTCARENOTE ---
While assisting patient to bedside commode patient weak and very tremulous bilateral hands and legs. Patient SOB and took some times to recover. She did not desaturate but increased o2 to 4L. Patient highly anxious. Xannax order changed to Q8h
PRN. Afib on monitor. VS stable. Patient ringing for RN appropriately.
--- NOTE | 2024-12-23 15:54 | CM ---
Patient with Dx Afib w RVR, Severe protein calorie malnutrition. O2 3L. Receiving Cardizem gtt. Per nurse; hand tremors, weak.
Met with patient and spoke with Kartik by phone;
the patient resides with her in a split level house, with 6 outside steps, and 6 + 6 inside stairs.
She is assisted with ADLs - supervises showers and medications.
Patient is ambulatory with her RW when out, and is unsteady on her feet.
does grocery shopping, cooking and cleaning.
DME - RW, SPC, w/c, shower chair, commode, home O2 concentrator (uses 3-4L with activity)
Prior [facility] VN.
Prior SNF - unknown facility
PCP - Geovanni Anders
Pharmacy - [facility] [place]
Message to Dr Davis; reports patient unsteady with ambulation, please order PT.
Plan follow up after seen by PT.
[2024-12-23] MEDS: DESYREL 100 MG PO (21:42)
[2024-12-23] MEDS: LIPITOR 10 MG PO (21:42)
--- NOTE | 2024-12-23 23:15 | PTCARENOTE ---
Pt received from soni RN. Pt very anxious, AAOx3. hand tremors present. HS xanax admin per order, see mar. afib on monitor. HR 70-90 bpm. satting 98% on 2L. assessment as documented. call light in reach.
[2024-12-24] VITALS (13 sets, daily range): BP systolic 103–141; BP diastolic 51–70; PULSE 72; O2SAT 98; BMI 16.8
[2024-12-24 04:59] LABS: % Basophils 0.1 % (0-2); % Immature Granulocytes 0.7 % (0-0.5); % Monocytes 4.6 % (1.7-9.3); % Neutrophils 89.6 % (42.2-75.2); Absolute Immature Granulocytes 0.1 10^3/uL (0-0.05); Absolute Monocytes 0.9 10^3/uL (0.1-0.6); Hematocrit 25.3 % (37.0-47.0); Hemoglobin 8.3 g/dL (12.0-16.0); Mean Corp Hgb Conc. 32.8 g/dL (33.0-37.0); Mean Corpuscular Hgb 29.3 pg (27.0-31.0); Mean Corpuscular Volume 89.4 fL (81.0-99.0); Mean Platelet Volume 10.3 fL (7.4-10.4); Nucleated Red Blood Cells % 0 %; Platelet Count 271 10^3/uL (130-400); Red Blood Cell Count 2.83 10^6/uL (4.20-5.40); Red Cell Dist. Width 15.6 % (11.5-14.5); White Blood Cell Count 20.1 10^3/uL (4.8-10.8)
[2024-12-24 05:20] LABS: Blood Urea Nitrogen 25 mg/dl (7-17); Calcium 8.2 mg/dl (8.4-10.2); Carbon Dioxide 28 mmol/L (22-30); Chloride 97 mmol/L (98-107); Estimated Creatinine Clearance 25 ml/min; Glucose 140 mg/dl (70-99); Potassium 4.5 mmol/L (3.5-5.1); Sodium 131 mmol/L (135-145); eGFR 44.64
--- NOTE | 2024-12-24 06:56 | PTCARENOTE ---
Captured VS for nightshift from [id number].
[2024-12-24] MEDS: DUONEB 3 ML INH ×4 (07:41→20:21)
[2024-12-24] MEDS: ADVAIR HFA 115/21 MCG INHALER 2 PUFF INH ×2 (07:41→20:20)
[2024-12-24] MEDS: PROTONIX 40 MG PO (08:05)
[2024-12-24] MEDS: TOPROL XL 25 MG PO (08:05)
[2024-12-24] MEDS: COZAAR 50 MG PO (08:06)
[2024-12-24] MEDS: CARDIZEM CD 240 MG PO (08:06)
[2024-12-24] MEDS: BUSPAR 10 MG PO ×3 (08:06→21:21)
[2024-12-24] MEDS: ELIQUIS 2.5 MG PO (08:06)
[2024-12-24 08:48] LABS: Iron 33 ug/dl (37-170)
[2024-12-24 08:58] LABS: Percent Saturation 12 % (20-50); Total Iron Binding Capacity 274 ug/dl (265-497)
--- NOTE | 2024-12-24 09:43 | PTCARENOTE ---
Assumed care of patient this morning. She is aaox3, appears anxious. She reports she felt the urge to void, pt placed on bedpan but unable to void. Bladder scanned for 197. RT at bedside and attempted to wean to RA, unsuccessful and placed back on
2L NC. On telemetry, pt remains in A-fib. VS stable. Assessment, care and VS as charted.
[2024-12-24 11:17] LABS: Ferritin 62.4 ng/ml (11.1-264.0)
--- NOTE | 2024-12-24 11:27 | W.PN.HOSP.TC ---
Today's Communication/Plan
-
Continue PO diltiazem and metoprolol
Hold Eliquis
Start PO iron
Continue with Ensure
Trend CBC
Assessment / Plan
Assessment / Plan
#Permanent AF with RVR
-Presented with RVR and heart rate near 130/min, likely related to nausea/abdomen symptoms
-Home regimen includes diltiazem ER 240 and metoprolol succinate 25 mg daily and reduced dose Eliquis
-Nonvalvular etiology; no known history of electrophysiologic interventions
-Status post IV diltiazem drip with resolution of RVR, back on oral regimen
-Most recent HR 75/min and rate controlled AF; hemodynamically stable
-Continue to monitor on telemetry for now, consider increase metoprolol dose if needed
-Holding Eliquis due to downtrending hemoglobin
#Acute on chronic anemia
-Upon arrival hemoglobin was 10.7 but is down trended 8.3 as of morning 12/24
-Iron studies on morning of 12/24 with low ferritin and TIBC, likely multifactoral
-No signs of bleeding reported, heme test ordered but pending results
-Reticulocyte index <2%, inadequate bone marrow response with age
-Repeat CBC today, consider type and screen if continue to
-Transfuse PRBC PRN for hemoglobin goal >7 or absence of symptoms
-Hold Eliquis for now, start PO iron
#SMA syndrome
#Left renal artery stenosis
#Severe protein calorie malnutrition
-CT A/P with IV contrast in 09/2023 showed marked atherosclerosis of the proximal SMA and proximal left renal artery
-Symptomatically with intestinal angina that is limited her oral intake over time; BMI today 16.1, follows palliative
-Home regimen includes moderate intensity statin; not on antiplatelet but is on DOAC for AF
-Symptomatically has improved since arrival
-Encourage multiple small meals and monitor
-Ensure BID AC
#Chronic HFpEF
#Severe pulmonary hypertension (group 3)
-Last echocardiogram with normal biventricular size and function, severe TR and pulmonary hypertension
-Likely at risk for RV predominant heart failure with significant pulmonary hypertension from lung disease
-Home medications include Lasix 20 mg daily, not currently on GDMT with SGLT2i
-Home meds do include afterload reduction with ARB, rate control with metoprolol
-Appears euvolemic at this time
#COPD without exacerbation
-No recent PFTs to review, Home regimen includes Wixela and Spiriva
-Initial concerns for exacerbation on arrival however symptomatically improved, stable on RA here
-No wheezes or other signs of bronchospasm on exam today
-Continue to monitor on RA on home maintenance regimen
#CKD stage IIIb
-Likely related to age and possibly hypertension history
-Baseline creatinine likely near 1.3, has been at baseline here
-Has AoCD related to CKD and RA; no acidemia or bone mineral disease
#Primary hypertension
-Possibly related to CKD, no other history of hypertensive systemic disease
-Home regimen includes losartan, diltiazem, and metoprolol
-Blood pressure here at goal for age
#Rheumatoid arthritis
#Immunosuppressed status
#Anemia of chronic disease
-Home regimen includes Humira every 3 weeks
-No history of CAD or ILD associated, does have anemia
-No signs of flare, hemoglobin currently near baseline
#Adrenal lesion
-Unclear etiology, patient has chosen to not have further workup
-Based on labs does not appear to be metabolically active
#Chronic leukocytosis
-Unclear etiology, possibly related to medications v. primary bone marrow etiology/malignancy
-Trend CBC
#Anxiety
#Tremor
-Patient states she has significant anxiety, has tremor at the moment that she relates to her anxiousness
-Tremor does wax and wane, seems to improve when she is distracted
-Continue home BuSpar, alprazolam PRN
Diet: Regular
DVT prophylaxis: SCDs
CODE STATUS: DNR
Anticipated Discharge: 24 - 48 hours
Subjective/Interval History
-
Date of Service: December 24, 2024
Seen and examined at the bedside. No acute events reported overnight. AFVSS with HR 71/min
Hemoglobin downtrending 10.7�9.8�8.3 since admission. She denies any known sources of bleeding. Iron studies with signs of FRANCHESCA. Heme test pending
She denies any abdomen pain and states she is breathing okay.
Objective Data
-
Labs:
Laboratory Results
12/24/24 12/24/24
04:26 11:26
WBC 20.1 H
Hgb 8.3 L Pending
Hct 25.3 L Pending
Plt Count 271
Sodium 131 L
Potassium 4.5
Chloride 97 L
Carbon Dioxide 28
BUN 25 H
Creatinine 1.2 H
Glucose 140 H
Calcium 8.2 L
Vital Signs:
Vital Signs
Temp Pulse Resp BP Pulse Ox
97.4 F 68 21 110/62 98
12/24/24 07:32 12/24/24 10:00 12/24/24 10:00 12/24/24 10:00 12/24/24 10:00
I&O
12/23/24 12/24/24 12/25/24
06:59 06:59 06:59
Intake Total 1035 / 1035
Output Total 830 / 830
Balance 205 / 205
Review of Systems
-
History Source: Patient
All other systems: Reviewed and negative
Physical Exam
-
General: Well Developed, No Apparent Distress, Appears Chronically Ill, Cachectic and Other (Frail-appearing)
HEENT: Normocephalic, Atraumatic, Moist Mucous Membranes and Other
Respiratory: Clear to Auscultation and Non Labored Respirations; Negative Accessory Resp Muscle Use
Cardiac: S1/S2 and Irregular Rhythm; Negative Murmur, Rub, Gallop or Tachycardic
GI: Soft, Nontender, Nondistended and Normal Bowel Sounds
Musculoskeletal: No Clubbing, No Cyanosis and No Edema
Skin: Warm, Dry and Normal Turgor; Negative Rash
Neuro: AO x 3 and Nonfocal/Grossly Intact
Psych: Calm
Data Reviewed
-
Labs: Labs Reviewed by me and Discussed with Patient
[2024-12-24 11:48] LABS: Folate 10.8 ng/ml (2.76-20); Vitamin B12 229 pg/ml (239-931)
[2024-12-24] MEDS: FEOSOL 325 MG PO (12:41)
[2024-12-24 13:10] LABS: Hematocrit 24.7 % (37.0-47.0); Hemoglobin 8.4 g/dL (12.0-16.0)
--- NOTE | 2024-12-24 18:13 | PTCARENOTE ---
Patient having minimal output during shift, voiding 40-50 mls at a time. Bladder scans less than 400, see flowsheet. made aware via TT. No new orders at this time.
[2024-12-24] MEDS: XANAX 0.25 MG PO (21:21)
[2024-12-24] MEDS: DESYREL 100 MG PO (21:21)
[2024-12-24] MEDS: LIPITOR 10 MG PO (21:22)
[2024-12-25] VITALS (14 sets, daily range): BP systolic 96–163; BP diastolic 39–100; BMI 16.6
[2024-12-25 03:30] LABS: % Basophils 0.1 % (0-2); % Immature Granulocytes 0.7 % (0-0.5); % Lymphocytes 5.7 % (20.5-51.1); % Monocytes 4.4 % (1.7-9.3); % Neutrophils 89.1 % (42.2-75.2); Absolute Immature Granulocytes 0.1 10^3/uL (0-0.05); Absolute Lymphocytes 1.2 10^3/uL (1.2-3.4); Hemoglobin 8.9 g/dL (12.0-16.0); Mean Corpuscular Hgb 29.5 pg (27.0-31.0); Mean Corpuscular Volume 89.4 fL (81.0-99.0); Mean Platelet Volume 10.1 fL (7.4-10.4); Nucleated Red Blood Cells % 0 %; Platelet Count 302 10^3/uL (130-400); Red Blood Cell Count 3.02 10^6/uL (4.20-5.40); Red Cell Dist. Width 16.3 % (11.5-14.5); White Blood Cell Count 21.4 10^3/uL (4.8-10.8)
--- NOTE | 2024-12-25 03:48 | PTCARENOTE ---
Elisabet is still only voiding 25-50cc at a time when up to the BSC... retaining >500cc urine via bladder scan. Straight cathed x1 this morning for 550cc clear yellow urine. pt tolerated well. thankful and feels better. Pt reports no BM in three days
but BM documented on 12/23. Heels floated, repositioning provided. Sacrum foam dressing changed. dark purple scattered bruising to arms and lower legs. Pt VIEYRA/tachypneic when OOB to BSC. Reports SOB and takes several minutes to catch her breath.
Anxiety not an issue, tremors are minimal. slightly forgetful. swallowing pills w/o issues. Afib on telemetry; HR 60-110s. Call meza and tray table within reach. pt calls appropriately for assistance.
[2024-12-25 03:55] LABS: Blood Urea Nitrogen 31 mg/dl (7-17); Calcium 8.4 mg/dl (8.4-10.2); Carbon Dioxide 25 mmol/L (22-30); Chloride 98 mmol/L (98-107); Estimated Creatinine Clearance 21 ml/min; Glucose 101 mg/dl (70-99); Potassium 5.1 mmol/L (3.5-5.1); Sodium 131 mmol/L (135-145)
[2024-12-25] MEDS: ADVAIR HFA 115/21 MCG INHALER 2 PUFF INH ×2 (07:50→19:30)
[2024-12-25] MEDS: DUONEB 3 ML INH ×3 (07:50→15:03)
[2024-12-25] MEDS: BUSPAR 10 MG PO ×3 (08:29→21:10)
[2024-12-25] MEDS: TOPROL XL 25 MG PO (08:29)
[2024-12-25] MEDS: PROTONIX 40 MG PO (08:29)
[2024-12-25] MEDS: CARDIZEM CD 240 MG PO (08:30)
[2024-12-25] MEDS: COZAAR PO (08:31)
[2024-12-25] MEDS: FEOSOL 325 MG PO (08:32)
--- NOTE | 2024-12-25 09:03 | PTCARENOTE ---
Pt asleep , easily arousable, states she had a bad night and is tired also is very hungry breakfast ordered. Pt is AAAOxx3 can be forgetful, [place] and tends to be anxious.
--- NOTE | 2024-12-25 11:02 | W.PN.HOSP.TC ---
Today's Communication/Plan
-
Discharge to SNF
BMP and CBC in 1
Assessment / Plan
Assessment / Plan
#Permanent AF with RVR
-Presented with RVR and heart rate near 130/min, likely related to nausea/abdomen symptoms
-Home regimen includes diltiazem ER 240 and metoprolol succinate 25 mg daily and reduced dose Eliquis
-Nonvalvular etiology; no known history of electrophysiologic interventions
-Status post IV diltiazem drip with resolution of RVR, back on oral regimen
-Most recent HR 75/min and rate controlled AF; hemodynamically stable
-Continue to monitor on telemetry
#Acute on chronic anemia
-Upon arrival hemoglobin was 10.7 but is down trended 8.3 as of morning 12/24
-Iron studies on morning of 12/24 with low ferritin and TIBC, likely multifactoral
-No signs of bleeding reported, heme test ordered but pending results
-Reticulocyte index <2%, inadequate bone marrow response with age
-Repeat CBC today, consider type and screen if continue to
-Transfuse PRBC PRN for hemoglobin goal >7 or absence of symptoms
-Hold Eliquis for now, start PO iron
#SMA syndrome
#Left renal artery stenosis
#Severe protein calorie malnutrition
-CT A/P with IV contrast in 09/2023 showed marked atherosclerosis of the proximal SMA and proximal left renal artery
-Symptomatically with intestinal angina that is limited her oral intake over time; BMI today 16.1, follows palliative
-Home regimen includes moderate intensity statin; not on antiplatelet but is on DOAC for AF
-Symptomatically has improved since arrival
-Encourage multiple small meals and monitor
-Ensure BID AC
#Chronic HFpEF
#Severe pulmonary hypertension (group 3)
-Last echocardiogram with normal biventricular size and function, severe TR and pulmonary hypertension
-Likely at risk for RV predominant heart failure with significant pulmonary hypertension from lung disease
-Home medications include Lasix 20 mg daily, not currently on GDMT with SGLT2i
-Home meds do include afterload reduction with ARB, rate control with metoprolol
-Appears euvolemic at this time
#COPD without exacerbation
-No recent PFTs to review, Home regimen includes Wixela and Spiriva
-Initial concerns for exacerbation on arrival however symptomatically improved, stable on RA here
-No wheezes or other signs of bronchospasm on exam today
-Continue to monitor on RA on home maintenance regimen
#CKD stage IIIb
-Likely related to age and possibly hypertension history
-Baseline creatinine likely near 1.3, has been at baseline here
-Has AoCD related to CKD and RA; no acidemia or bone mineral disease
#Primary hypertension
-Possibly related to CKD, no other history of hypertensive systemic disease
-Home regimen includes losartan, diltiazem, and metoprolol
-Blood pressure here at goal for age
#Rheumatoid arthritis
#Immunosuppressed status
#Anemia of chronic disease
-Home regimen includes Humira every 3 weeks
-No history of CAD or ILD associated, does have anemia
-No signs of flare, hemoglobin currently near baseline
#Adrenal lesion
-Unclear etiology, patient has chosen to not have further workup
-Based on labs does not appear to be metabolically active
#Chronic leukocytosis
-Unclear etiology, possibly related to medications v. primary bone marrow etiology/malignancy
-Trend CBC
#Anxiety
#Tremor
-Patient states she has significant anxiety, has tremor at the moment that she relates to her anxiousness
-Tremor does wax and wane, seems to improve when she is distracted
-Continue home BuSpar, alprazolam PRN
Diet: Regular
DVT prophylaxis: SCDs
CODE STATUS: DNR
Anticipated Discharge: Today
Subjective/Interval History
-
Date of Service: December 25, 2024
Seen and examined at the bedside. No acute events reported overnight. AFVSS on low-level O2 with SpO2 high 90s
Hemoglobin stabilized after initial drop. Remainder of labs stable and at baseline
She denies any new complaints. States she feels well, ready for rehab
Objective Data
-
Labs:
Laboratory Results
12/25/24
03:22
WBC 21.4 H
Hgb 8.9 L
Hct 27.0 L
Plt Count 302
Sodium 131 L
Potassium 5.1
Chloride 98
Carbon Dioxide 25
BUN 31 H
Creatinine 1.4 H
Glucose 101 H
Calcium 8.4
Vital Signs:
Vital Signs
Temp Pulse Resp BP Pulse Ox
97.9 F 64 17 103/39 97
12/25/24 07:30 12/25/24 08:30 12/25/24 08:00 12/25/24 08:31 12/25/24 09:44
I&O
12/24/24 12/25/24 12/26/24
06:59 06:59 06:59
Intake Total 1035 / 1035 240 / 240
Output Total 830 / 830 550 / 550
Balance 205 / 205 -310 / -310
Review of Systems
-
History Source: Patient
All other systems: Reviewed and negative
Physical Exam
-
General: Well Developed, No Apparent Distress, Appears Chronically Ill and Cachectic
HEENT: Normocephalic, Atraumatic, Moist Mucous Membranes, Anicteric and Oxygen
Respiratory: Clear to Auscultation and Non Labored Respirations; Negative Accessory Resp Muscle Use
Cardiac: S1/S2 and Irregular Rhythm; Negative Murmur, Rub, Gallop or Tachycardic
GI: Soft, Nontender, Nondistended and Normal Bowel Sounds
Musculoskeletal: No Clubbing, No Cyanosis and No Edema
Neuro: AO x 3 and Nonfocal/Grossly Intact
Psych: Calm
Data Reviewed
-
Labs: Labs Reviewed by me, Discussed with Nurse and Discussed with Patient
[2024-12-25] MEDS: XANAX 0.25 MG PO ×2 (12:08→21:10)
--- NOTE | 2024-12-25 15:14 | PTCARENOTE ---
Pt OOB to C urinated and now states she is SOB, lungs are clear POX is 98% on 2 L RR 28. Pt states she needs her inhalers, Rsp called to give her a treatment.
--- NOTE | 2024-12-25 17:20 | CM ---
Patient with Dx Afib w RVR, Severe protein calorie malnutrition. O2 2L. PT recommends HH vs skilled. OT held today due to SOB.
Spoke with patient; she says she has not had a good day today due to SOB. She is unsure if she wants to go to SNF for rehab or go home. Suggested she talk it over with her and see how she feels in a next few days.
As per prior CM notes, patient has home O2 in place.
Plan follow patient's mobility.
Plan follow up with patient re; decision for SNF for rehab vs HH.
--- NOTE | 2024-12-25 18:30 | PTCARENOTE ---
Pt OOB to commode hr 178, EKG being done, now back in bed and HR 134 she feels nauseated
[2024-12-25] MEDS: ZOFRAN 4 MG IV (18:34)
--- NOTE | 2024-12-25 18:40 | PTCARENOTE ---
Dr Merino notified of HR and ekg that was done. HR now 128- 134
[2024-12-25] MEDS: ELIQUIS 2.5 MG PO (19:57)
[2024-12-25] MEDS: LIPITOR 10 MG PO (21:09)
[2024-12-25] MEDS: DESYREL 100 MG PO (21:10)
[2024-12-25] MEDS: LOPRESSOR 5 MG IV (21:26)
[2024-12-26] VITALS (15 sets, daily range): BP systolic 93–147; BP diastolic 43–85; PULSE 75; O2SAT 98; BMI 16.7
--- NOTE | 2024-12-26 01:47 | PTCARENOTE ---
Pt unable to void on bedpan. Unable to ambulate [place] [facility] [place] elevated HR on exertion. BS and straight cath performed with 925ml output. Pt reports relief of abdominal pain, urge to void. Denies SOB at this time. Call meza within reach.
[2024-12-26] MEDS: ADVAIR HFA 115/21 MCG INHALER 2 PUFF INH ×2 (07:56→18:18)
[2024-12-26] MEDS: FEOSOL 325 MG PO (08:34)
[2024-12-26] MEDS: COZAAR 50 MG PO (08:34)
[2024-12-26] MEDS: PROTONIX 40 MG PO (08:35)
[2024-12-26] MEDS: ELIQUIS 2.5 MG PO ×2 (08:35→19:56)
[2024-12-26] MEDS: TOPROL XL 25 MG PO (08:35)
[2024-12-26] MEDS: CARDIZEM CD 240 MG PO (08:35)
[2024-12-26 09:50] LABS: Blood Urea Nitrogen 26 mg/dl (7-17); Calcium 8.5 mg/dl (8.4-10.2); Carbon Dioxide 28 mmol/L (22-30); Chloride 103 mmol/L (98-107); Estimated Creatinine Clearance 25 ml/min; Glucose 91 mg/dl (70-99); Potassium 4.4 mmol/L (3.5-5.1); Sodium 135 mmol/L (135-145); eGFR 44.64
[2024-12-26 10:02] LABS: % Basophils 0.1 % (0-2); % Eosinophils 1.4 % (0-6); % Immature Granulocytes 0.4 % (0-0.5); % Lymphocytes 15.1 % (20.5-51.1); % Monocytes 7.1 % (1.7-9.3); % Neutrophils 75.9 % (42.2-75.2); Absolute Eosinophils 0.2 10^3/uL (0-0.7); Absolute Immature Granulocytes 0.1 10^3/uL (0-0.05); Absolute Lymphocytes 2.2 10^3/uL (1.2-3.4); Absolute Monocytes 1.1 10^3/uL (0.1-0.6); Absolute Neutrophils 11.2 10^3/uL (1.4-6.5); Hematocrit 27.9 % (37.0-47.0); Hemoglobin 8.9 g/dL (12.0-16.0); Mean Corp Hgb Conc. 31.9 g/dL (33.0-37.0); Mean Corpuscular Volume 90.9 fL (81.0-99.0); Nucleated Red Blood Cells % 0 %; Platelet Count 299 10^3/uL (130-400); Red Blood Cell Count 3.07 10^6/uL (4.20-5.40); Red Cell Dist. Width 16.7 % (11.5-14.5); White Blood Cell Count 14.7 10^3/uL (4.8-10.8)
[2024-12-26] MEDS: BUSPAR PO (10:28)
--- NOTE | 2024-12-26 11:17 | W.PN.HOSP.TC ---
Today's Communication/Plan
-
Discharge planning ( v. SNF)
Plan to resume Lasix PRN at discharge
Assessment / Plan
Assessment / Plan
#Permanent AF with RVR
-Presented with RVR and heart rate near 130/min, likely related to nausea/abdomen symptoms
-Home regimen includes diltiazem ER 240 and metoprolol succinate 25 mg daily and reduced dose Eliquis
-Nonvalvular etiology; no known history of electrophysiologic interventions
-Status post IV diltiazem drip with resolution of RVR, back on oral regimen
-Most recent HR 68/min and rate controlled AF; hemodynamically stable
-Continue to monitor on telemetry
#Acute on chronic anemia
-Upon arrival hemoglobin was 10.7 but is down trended 8.3 as of morning 12/24
-Iron studies on morning of 12/24 with low ferritin and TIBC, likely multifactoral
-No signs of bleeding reported, heme test ordered but pending results
-Reticulocyte index <2%, inadequate bone marrow response with age
-Transfuse PRBC PRN for hemoglobin goal >7 or absence of symptoms
-Hold Eliquis for now, start PO iron
#SMA syndrome
#Left renal artery stenosis
#Severe protein calorie malnutrition
-CT A/P with IV contrast in 09/2023 showed marked atherosclerosis of the proximal SMA and proximal left renal artery
-Symptomatically with intestinal angina that is limited her oral intake over time; BMI today 16.1, follows palliative
-Home regimen includes moderate intensity statin; not on antiplatelet but is on DOAC for AF
-Symptomatically has improved since arrival
-Encourage multiple small meals and monitor
-Ensure BID AC
#Chronic HFpEF
#Severe pulmonary hypertension (group 3)
-Last echocardiogram with normal biventricular size and function, severe TR and pulmonary hypertension
-Likely at risk for RV predominant heart failure with significant pulmonary hypertension from lung disease
-Home medications include Lasix 20 mg daily, not currently on GDMT with SGLT2i
-Home meds do include afterload reduction with ARB, rate control with metoprolol
-Has remained euvolemic off low-dose home Lasix
-Plan to resume Lasix 20 mg as PRN for edema or weight gain
#COPD without exacerbation
-No recent PFTs to review, Home regimen includes Wixela and Spiriva
-Initial concerns for exacerbation on arrival however symptomatically improved, stable on RA here
-No wheezes or other signs of bronchospasm on exam today
-Continue to monitor on RA on home maintenance regimen
#CKD stage IIIb
-Likely related to age and possibly hypertension history
-Baseline creatinine likely near 1.3, has been at baseline here
-Has AoCD related to CKD and RA; no acidemia or bone mineral disease
#Primary hypertension
-Possibly related to CKD, no other history of hypertensive systemic disease
-Home regimen includes losartan, diltiazem, and metoprolol
-Blood pressure here at goal
#Rheumatoid arthritis
#Immunosuppressed status
#Anemia of chronic disease
-Home regimen includes Humira every 3 weeks
-No history of CAD or ILD associated, does have anemia
-No signs of flare, hemoglobin currently near baseline
#Adrenal lesion
-Unclear etiology, patient has chosen to not have further workup
-Based on labs does not appear to be metabolically active
#Chronic leukocytosis
-Unclear etiology, possibly related to medications v. primary bone marrow etiology/malignancy
-Trend CBC
#Anxiety
#Tremor
-Patient states she has significant anxiety, has tremor at the moment that she relates to her anxiousness
-Tremor does wax and wane, seems to improve when she is distracted
-Continue home BuSpar, alprazolam PRN
Diet: Regular
DVT prophylaxis: SCDs
CODE STATUS: DNR
Disposition: Medically stable for discharge to SNF versus home health, case management appreciated
Anticipated Discharge: Within 24 hours
Subjective/Interval History
-
Date of Service: December 26, 2024
Seen and examined at the bedside. No acute events reported overnight. AFVSS this morning on low level O2 with SpO2 98%
Patient states she has some soreness to her hip and shoulder that she associates with the hospital bed
Labs stable today. Pending discharge to SNF versus home health
Objective Data
-
Labs:
Laboratory Results
12/26/24
09:13
WBC 14.7 H
Hgb 8.9 L
Hct 27.9 L
Plt Count 299
Sodium 135
Potassium 4.4
Chloride 103
Carbon Dioxide 28
BUN 26 H
Creatinine 1.2 H
Glucose 91
Calcium 8.5
Vital Signs:
Vital Signs
Temp Pulse Resp BP Pulse Ox
98.1 F 68 22 111/46 95
12/26/24 11:15 12/26/24 07:58 12/26/24 07:58 12/26/24 06:03 12/26/24 07:58
I&O
12/25/24 12/26/24 12/27/24
06:59 06:59 06:59
Intake Total 240 / 240 120 / 120
Output Total 550 / 550 1250 / 1250
Balance -310 / -310 -1250 / -1250 120 / 120
Review of Systems
-
History Source: Patient
All other systems: Reviewed and negative
Physical Exam
-
General: Well Developed, No Apparent Distress, Pain (Mild, shoulder and hip), Appears Chronically Ill and Cachectic
HEENT: Normocephalic, Atraumatic, Moist Mucous Membranes, Anicteric and Oxygen
Respiratory: Non Labored Respirations and Decreased Breath Sounds; Negative Wheezes, Rales, Rhonchi or Accessory Resp Muscle Use
Cardiac: Regular Rhythm and S1/S2; Negative Murmur, Rub, JVD or Gallop
GI: Soft, Nontender, Nondistended and Normal Bowel Sounds
Musculoskeletal: No Clubbing, No Cyanosis and No Edema
Skin: Warm and Dry; Negative Rash
Neuro: AO x 3 and Nonfocal/Grossly Intact; Negative Tremors
Psych: Anxious
Data Reviewed
-
Labs: Labs Reviewed by me, Discussed with Nurse and Discussed with Patient
--- NOTE | 2024-12-26 13:20 | CM ---
Addendum entered by Ulises Aldridge 12/26/24 15:26:
Spoke w/ nurse and spouse regarding patient. Nurse shared concerns regarding patient lack of urinating independently and c/o constipation. Discussed w/ hospitalist
Per spouse, he is unable to support patient at home due to her weakness and not being strong enough at this time. Spouse agreeable to SNF, prefers [facility] or [facility], referrals placed in [facility] for review.
Updated hospitalist on plan
Plan: SNF; pending accepting facility
Original Note:
Patient stable for d/c. Per chart, patient unsure if she wants SNF vs home care per therapy rec. Patient wants to discuss w/ spouse.
Attempted call to spouse, left message
[2024-12-26] MEDS: TYLENOL 1000 MG PO (14:19)
[2024-12-26] MEDS: MIRALAX 17 GRAMS PO (14:19)
[2024-12-26] MEDS: XANAX 0.25 MG PO ×2 (14:21→19:56)
[2024-12-26] MEDS: BUSPAR 10 MG PO ×2 (18:46→19:56)
--- NOTE | 2024-12-26 19:36 | PTCARENOTE ---
see nursing assessment. pt with o2 at 2l sats in 90s. pt having difficulty voiding. bladder scanned and straight cathed for 550 mls at 1430. pt reports small hard bm 2 days ago. made aware. one time dose of miralax ordered and given.
[2024-12-26] MEDS: LIPITOR 10 MG PO (19:56)
[2024-12-26] MEDS: DESYREL 100 MG PO (19:56)
--- NOTE | 2024-12-26 22:46 | W.PN.UPDATE ---
Update Note
Progress Note Update
RN reports some nocturnal bradycardia (asymptomatic) with HR to 38. Pt came in with afib with RVR. On cardizem 240mg and metoprolol 25mg at home. Likely this is normal for her. Will leave meds as if so now.
[2024-12-27] VITALS (15 sets, daily range): BP systolic 116–145; BP diastolic 48–81; PULSE 95; O2SAT 98; BMI 16.6
--- NOTE | 2024-12-27 02:19 | PTCARENOTE ---
Patient heart rate dropping to the high 30s overnight. Remains in afib. tenderizer tender provider made aware. Patient unable to urinate on her own at this time. Bladder scanned every 6 hours.Remains on 2 liters NC.
[2024-12-27] MEDS: ADVAIR HFA 115/21 MCG INHALER 2 PUFF INH ×2 (07:20→19:55)
[2024-12-27] MEDS: PROTONIX 40 MG PO (09:46)
[2024-12-27] MEDS: MIRALAX 17 GRAMS PO (09:46)
[2024-12-27] MEDS: TOPROL XL 25 MG PO (09:46)
[2024-12-27] MEDS: FEOSOL 325 MG PO (09:46)
[2024-12-27] MEDS: COZAAR 50 MG PO (09:46)
[2024-12-27] MEDS: CARDIZEM CD 240 MG PO (09:46)
[2024-12-27] MEDS: ELIQUIS 2.5 MG PO ×2 (09:46→20:28)
[2024-12-27] MEDS: BUSPAR 10 MG PO ×3 (09:46→20:27)
--- NOTE | 2024-12-27 11:02 | W.PN.HOSP.TC ---
Today's Communication/Plan
-
Encourage OOB activity
Monitor PVR and consider Jordan
Pending SNF placement
Assessment / Plan
Assessment / Plan
#Permanent AF with RVR
-Presented with RVR and heart rate near 130/min, likely related to nausea/abdomen symptoms
-Home regimen includes diltiazem ER 240 and metoprolol succinate 25 mg daily and reduced dose Eliquis
-Nonvalvular etiology; no known history of electrophysiologic interventions
-Status post IV diltiazem drip with resolution of RVR, back on oral regimen
-Most recent HR 68/min and rate controlled AF; hemodynamically stable
-Continue to monitor on telemetry
#Urine retention
-Patient has had episodes with urine retention requiring straight cath
-Likely related to lack of ambulation and OOB activity
-Did pass some urine this morning with PVR 347 mL
-Will encourage ambulation and OOB activity
-If PVR >400 we will plan for Jordan
#Acute on chronic anemia
-Upon arrival hemoglobin was 10.7 but is down trended 8.3 as of morning 12/24
-Iron studies on morning of 12/24 with low ferritin and TIBC, likely multifactoral
-No signs of bleeding reported, heme test ordered but pending results
-Reticulocyte index <2%, inadequate bone marrow response with age
-Transfuse PRBC PRN for hemoglobin goal >7 or absence of symptoms
-Has remained stable since reinitiation of Eliquis, continue p.o. iron
#SMA syndrome
#Left renal artery stenosis
#Severe protein calorie malnutrition
-CT A/P with IV contrast in 09/2023 showed marked atherosclerosis of the proximal SMA and proximal left renal artery
-Symptomatically with intestinal angina that is limited her oral intake over time; BMI today 16.1, follows palliative
-Home regimen includes moderate intensity statin; not on antiplatelet but is on DOAC for AF
-Symptomatically has improved since arrival
-Encourage multiple small meals and monitor
-Ensure BID AC
#Chronic HFpEF
#Severe pulmonary hypertension (group 3)
-Last echocardiogram with normal biventricular size and function, severe TR and pulmonary hypertension
-Likely at risk for RV predominant heart failure with significant pulmonary hypertension from lung disease
-Home medications include Lasix 20 mg daily, not currently on GDMT with SGLT2i
-Home meds do include afterload reduction with ARB, rate control with metoprolol
-Has remained euvolemic off low-dose home Lasix
-Plan to resume Lasix 20 mg as PRN for edema or weight gain
#COPD without exacerbation
-No recent PFTs to review, Home regimen includes Wixela and Spiriva
-Initial concerns for exacerbation on arrival however symptomatically improved, stable on RA here
-No wheezes or other signs of bronchospasm on exam today
-Continue to monitor on RA on home maintenance regimen
#CKD stage IIIb
-Likely related to age and possibly hypertension history
-Baseline creatinine likely near 1.3, has been at baseline here
-Has AoCD related to CKD and RA; no acidemia or bone mineral disease
#Primary hypertension
-Possibly related to CKD, no other history of hypertensive systemic disease
-Home regimen includes losartan, diltiazem, and metoprolol
-Blood pressure here at goal
#Rheumatoid arthritis
#Immunosuppressed status
#Anemia of chronic disease
-Home regimen includes Humira every 3 weeks
-No history of CAD or ILD associated, does have anemia
-No signs of flare, hemoglobin currently near baseline
#Adrenal lesion
-Unclear etiology, patient has chosen to not have further workup
-Based on labs does not appear to be metabolically active
#Chronic leukocytosis
-Unclear etiology, possibly related to medications v. primary bone marrow etiology/malignancy
-Trend CBC
#Anxiety
#Tremor
-Patient states she has significant anxiety, has tremor at the moment that she relates to her anxiousness
-Tremor does wax and wane, seems to improve when she is distracted
-Continue home BuSpar, alprazolam PRN
Diet: Regular
DVT prophylaxis: SCDs
CODE STATUS: DNR
Disposition: Medically stable for discharge to SNF versus home health, case management appreciated
Discussed with her son, Jeremiah, at the bedside
Anticipated Discharge: Within 24 hours
Subjective/Interval History
-
Date of Service: December 27, 2024
Seen and examined at the bedside. No acute events reported overnight. AFVSS on low-level O2 this morning with SpO2 high 90s
Patient was complaining of some urine retention and constipation. Spontaneously had bowel movement and some urine output, PVR <400 currently
Otherwise denies any other new complaints as of this morning
Objective Data
-
Vital Signs:
Vital Signs
Temp Pulse Resp BP Pulse Ox
97.5 F 72 18 128/53 99
12/27/24 07:16 12/27/24 07:21 12/27/24 07:21 12/27/24 06:00 12/27/24 08:59
I&O
12/26/24 12/27/24 12/28/24
06:59 06:59 06:59
Intake Total 360 / 360 120 / 120
Output Total 1250 / 1250 900 / 900
Balance -1250 / -1250 -540 / -540 120 / 120
Review of Systems
-
History Source: Patient
All other systems: Reviewed and negative
Physical Exam
-
General: Well Developed, No Apparent Distress, Appears Chronically Ill and Cachectic
HEENT: Normocephalic, Atraumatic, Moist Mucous Membranes, Anicteric and Oxygen
Respiratory: Non Labored Respirations and Decreased Breath Sounds; Negative Wheezes, Rales, Rhonchi or Accessory Resp Muscle Use
Cardiac: S1/S2 and Irregular Rhythm; Negative Murmur, Rub, Gallop or Tachycardic
GI: Soft, Nontender, Nondistended and Normal Bowel Sounds
Musculoskeletal: No Clubbing, No Cyanosis and No Edema
Skin: Warm, Dry and Normal Turgor; Negative Rash
Neuro: AO x 3 and Nonfocal/Grossly Intact; Negative Tremors
Psych: Calm
[2024-12-27] MEDS: DUONEB 3 ML INH (12:57)
--- NOTE | 2024-12-27 14:38 | PTCARENOTE ---
Pt's assessment as documented. Aox3. Afib on tele monitor. Sating mid 90's on 2L NC. Pt with difficulty voiding, able to void small amounts on BSC; bladder scan/ cath per orders. Moved bowels on BSC. OOB to chair with PT. Able to make needs known,
call meza within reach.
--- NOTE | 2024-12-27 16:14 | PTCARENOTE ---
Pt with bladder scan of 498ml. Dr. Davis notified, order received to place 16F jones- see intervention.
[2024-12-27] MEDS: XANAX 0.25 MG PO (20:27)
[2024-12-27] MEDS: DESYREL 100 MG PO (20:27)
[2024-12-27] MEDS: LIPITOR 10 MG PO (20:27)
[2024-12-27] MEDS: SENNA SYRUP 8.8 MG PO (20:28)
[2024-12-28] VITALS (8 sets, daily range): BP systolic 96–141; BP diastolic 34–85; BMI 17.4
--- NOTE | 2024-12-28 05:32 | PTCARENOTE ---
No acute events overnight. Jordan draining yellow urine with 600 ml output. Remains on 2 liters NC.
[2024-12-28] MEDS: ADVAIR HFA 115/21 MCG INHALER 2 PUFF INH (07:32)
[2024-12-28] MEDS: ProAIR HFA INHALER 1 PUFF INH (07:33)
[2024-12-28] MEDS: COZAAR 50 MG PO (09:43)
[2024-12-28] MEDS: CARDIZEM CD 240 MG PO (09:43)
[2024-12-28] MEDS: SENNA SYRUP 8.8 MG PO (09:43)
[2024-12-28] MEDS: ELIQUIS 2.5 MG PO (09:43)
[2024-12-28] MEDS: PROTONIX 40 MG PO (09:43)
[2024-12-28] MEDS: MIRALAX 17 GRAMS PO (09:43)
[2024-12-28] MEDS: BUSPAR 10 MG PO (09:44)
[2024-12-28] MEDS: TOPROL XL 25 MG PO (09:44)
[2024-12-28] MEDS: FEOSOL 325 MG PO (09:44)
--- NOTE | 2024-12-28 12:34 | W.PN.HOSP.TC ---
Today's Communication/Plan
-
Discharge to [facility]
Trial of void at rehab
Assessment / Plan
Assessment / Plan
#Permanent AF with RVR
-Presented with RVR and heart rate near 130/min, likely related to nausea/abdomen symptoms
-Home regimen includes diltiazem ER 240 and metoprolol succinate 25 mg daily and reduced dose Eliquis
-Nonvalvular etiology; no known history of electrophysiologic interventions
-Status post IV diltiazem drip with resolution of RVR, back on oral regimen
-Most recent HR 93/min and rate controlled AF; hemodynamically stable
-Continue to monitor on telemetry
#Urine retention
-Patient has had episodes with urine retention requiring straight cath
-Likely related to lack of ambulation and OOB activity
-Did pass some urine this morning with PVR 347 mL
-Jordan catheter placed on 12/27/2024 for recurrent return
-Plan for trial of void at rehab in 48-72 hours
-OP urology follow-up provided
#Acute on chronic anemia
-Upon arrival hemoglobin was 10.7 but is down trended 8.3 as of morning 12/24
-Iron studies on morning of 12/24 with low ferritin and TIBC, likely multifactoral
-No signs of bleeding reported, heme test ordered but pending results
-Reticulocyte index <2%, inadequate bone marrow response with age
-Transfuse PRBC PRN for hemoglobin goal >7 or absence of symptoms
-Has remained stable since reinitiation of Eliquis, continue p.o. iron
#SMA syndrome
#Left renal artery stenosis
#Severe protein calorie malnutrition
-CT A/P with IV contrast in 09/2023 showed marked atherosclerosis of the proximal SMA and proximal left renal artery
-Symptomatically with intestinal angina that is limited her oral intake over time; BMI today 16.1, follows palliative
-Home regimen includes moderate intensity statin; not on antiplatelet but is on DOAC for AF
-Symptomatically has improved since arrival
-Encourage multiple small meals and monitor
-Ensure BID AC
#Chronic HFpEF
#Severe pulmonary hypertension (group 3)
-Last echocardiogram with normal biventricular size and function, severe TR and pulmonary hypertension
-Likely at risk for RV predominant heart failure with significant pulmonary hypertension from lung disease
-Home medications include Lasix 20 mg daily, not currently on GDMT with SGLT2i
-Home meds do include afterload reduction with ARB, rate control with metoprolol
-Has remained euvolemic off low-dose home Lasix
-Plan to resume Lasix 20 mg as PRN for edema or weight gain
#COPD without exacerbation
-No recent PFTs to review, Home regimen includes Wixela and Spiriva
-Initial concerns for exacerbation on arrival however symptomatically improved, stable on RA here
-No wheezes or other signs of bronchospasm on exam today
-Continue to monitor on RA on home maintenance regimen
#CKD stage IIIb
-Likely related to age and possibly hypertension history
-Baseline creatinine likely near 1.3, has been at baseline here
-Has AoCD related to CKD and RA; no acidemia or bone mineral disease
#Primary hypertension
-Possibly related to CKD, no other history of hypertensive systemic disease
-Home regimen includes losartan, diltiazem, and metoprolol
-Blood pressure here at goal
#Rheumatoid arthritis
#Immunosuppressed status
#Anemia of chronic disease
-Home regimen includes Humira every 3 weeks
-No history of CAD or ILD associated, does have anemia
-No signs of flare, hemoglobin currently near baseline
#Adrenal lesion
-Unclear etiology, patient has chosen to not have further workup
-Based on labs does not appear to be metabolically active
#Chronic leukocytosis
-Unclear etiology, possibly related to medications v. primary bone marrow etiology/malignancy
-Trend CBC
#Anxiety
#Tremor
-Patient states she has significant anxiety, has tremor at the moment that she relates to her anxiousness
-Tremor does wax and wane, seems to improve when she is distracted
-Continue home BuSpar, alprazolam PRN
Diet: Regular
DVT prophylaxis: SCDs
CODE STATUS: DNR
Disposition: Medically stable for discharge to SNF versus home health, case management appreciated
Anticipated Discharge: Today
Subjective/Interval History
-
Date of Service: December 28, 2024
Seen and examined at the bedside. No acute events reported overnight. AFVSS, HR low 100s in AF prior to a.m. meds, improved after
Patient states she feels well today and is ready to leave hospital
Denies any new complaints this morning
Objective Data
-
Vital Signs:
Vital Signs
Temp Pulse Resp BP Pulse Ox
97.0 F 93 18 137/60 97
12/28/24 06:27 12/28/24 12:00 12/28/24 12:00 12/28/24 12:00 12/28/24 11:11
I&O
12/27/24 12/28/24 12/29/24
06:59 06:59 06:59
Intake Total 360 / 360 120 / 120
Output Total 900 / 900 1100 / 1100
Balance -540 / -540 -980 / -980
Review of Systems
-
History Source: Patient
All other systems: Reviewed and negative
Physical Exam
-
General: Well Developed, No Apparent Distress, Appears Chronically Ill and Cachectic
HEENT: Normocephalic, Atraumatic, Moist Mucous Membranes and Anicteric
Respiratory: Clear to Auscultation and Non Labored Respirations; Negative Accessory Resp Muscle Use
Cardiac: S1/S2 and Irregular Rhythm; Negative Murmur, Rub, Gallop or Tachycardic
GI: Soft, Nontender, Nondistended and Normal Bowel Sounds
Genito-urinary: Clear Urine and Jordan
Musculoskeletal: No Clubbing, No Cyanosis and No Edema
Skin: Warm and Dry; Negative Rash
Neuro: AO x 3 and Nonfocal/Grossly Intact; Negative Tremors
Psych: Calm
[2024-12-28 13:42] LABS: COVID-19 Antigen Negative (Negative)
--- NOTE | 2024-12-28 16:14 | CM ---
Patient with Dx Afib w RVR, urine retention, anemia. O2 2L. Jordan. PT/OT recommend skilled rehab. Covid test 12/28 negative.
Spoke with Jane, [facility]; they are able to accept the patient today. A Covid test is needed. The ph for report to nurse's cell [phone], fax [phone].
Met with patient and Kartik; both agree to [facility] today by ambulance. IMM completed.
Plan [facility] today by ambulance.
--- NOTE | 2024-12-28 16:22 | PTCARENOTE ---
Pt for d/c to [facility]. Report to receiving RN. IV and monitor equipment removed. Belongings collected from room. D/C off unit with [facility].
--- NOTE | 2024-12-29 15:25 | W.DCSUMMARY ---
Discharge Summary
Discharge Data
Date of Admission: 12/23/24
Date of Discharge: 12/28/24
Total time spent discharging patient (in min): 35
-
Pending Results: No
Hospital Course
Discharging Physician :�Radu Davis DO
Disposition :���� SNF
Principal Discharge diagnosis :�
AF with RVR
Multifactorial anemia (AOCD and FRANCHESCA)
Acute urine retention
Chronic Discharge diagnosis :�
Chronic respiratory failure on as needed O2
COPD
HFpEF
Persistent AF on Eliquis
CKD stage III
Chronic mesenteric ischemia/SMA syndrome
RA on Humira
AOCD
Leukocytosis
Hypertension
GERD
Adrenal lesion
Anxiety
H/O CVA s/p tPA
Hospital Course :�
84-year-old female that presented to the hospital with nausea and shortness of breath after being started on antibiotics for a UTI. Upon arrival she was found to be in atrial fibrillation with RVR. Placed on to diltiazem drip with spontaneous
achievement of rate control and persistent heart rates in the range of 70 to 80/min and rate controlled AF after diltiazem drip was weaned. Was placed back onto oral regimen of diltiazem ER and metoprolol succinate. Was evaluated by physical
therapy who recommended SNF placement. Was held over weekend while SNF placement was in process. Had small drop in hemoglobin with iron studies consistent with multifactorial anemia secondary to AOCD and iron deficiency. Was started on oral iron
supplement. Blood counts stable thereafter. Due to poor mobility and minimal ambulation she developed urine retention and Jordan catheter ultimately needed placed. Jordan catheter was maintained at time of discharge and she was provided with
urology follow-up as an outpatient. Trial of void to be performed 48 to 72 hours after discharge to SNF with urology follow-up in event of unsuccessful voiding trial. Of note, home daily Lasix was transitioned to as needed for lower extremity
edema or weight gain >3 pounds in 24 hours or 5 pounds in 1 week. Lasix was held upon arrival while in RVR, remained stable and euvolemic without while in hospital
Consultants : N/A
Important imaging findings :� N/A
Procedure findings :� N/A
Follow-up :
PCP in 1 to 2 weeks after discharge
Cardiology referral within 1 to 2 weeks of discharge
Urology if needed (if fails trial of void)
Discharge Plan
-
Patient Disposition: [facility]ci/SNF
Discharge Diagnosis/Procedures: AF with RVR
Multifactorial anemia (AOCD + FRANCHESCA)
Acute urine retention s/p Jordan cath
Chronic mesenteric ischemia/SMA syndrome
Chronic leukocytosis
Chronic respiratory failure (as needed O2)
Condition: Fair
Diet: No restrictions
Activity: As tolerated
Driving Restrictions: Not until seen by your Dr
Bathing Restrictions: None
Blood Work: BMP, magnesium level, phosphorus level, CBC 1 week after discharge
Others Tests: Repeat CT scan of adrenal lesion in 6 months
Specialty Instructions: Weigh Daily- Call MD for wt gain/loss 3 lbs overnight/5 lbs in 1 week
Activity Restrictions/Additional Instructions:
Follow-up with family doctor within 1 to 2 weeks of discharge from hospital (referral provided)
Follow-up with airplane dispatch clerk within 2 weeks of discharge from hospital (referral provided if needed)
Patient will need trial of void for Jordan catheter removal, 48 to 72 hours after discharge when ambulating. If she fails trial of void then replace Jordan catheter and schedule follow-up with urology referral that was provide
Instructions: Atrial fibrillation - Discharge instructions
Referrals:
Kostas Rivera MD, Resident [Family Practice Resident Year2] - in one to two weeks (if needed)
Carlin Alegria MD [Active] - in two weeks (IF needed)
Scott Duarte MD [Active] - in two weeks (IF needed)
UNKNOWN,NO INTERVIEW [Family Provider] -
Additional Discharge Medication Instructions: Start ferrous sulfate 325 mg daily
Transition standing Lasix 20 mg daily standing to 20 mg once daily NEEDED for edema or >3 pound weight gain in 24 hours
Continue alprazolam 0.25 mg nightly standing and once daily as needed for anxiety
Prescriptions:
New
ferrous sulfate [FeroSul] 325 mg (65 mg iron) Tablet
325 mg PO DAILY 30 Days Qty: 30 0RF
furosemide [Lasix] 20 mg tablet
20 mg PO DAILY PRN (Reason: edema) Qty: 30 0RF
Rx Instructions:
weight gain >3lb/24h or >5lb/week
alprazolam 0.25 mg Tablet
0.25 mg PO DAILY PRN (Reason: Anxiety) 14 Days Qty: 14 0RF
Continued
fluticasone propion-salmeterol [Wixela Inhub] 250-50 mcg/dose Blister With Device
1 inh INHALATION R BID
diltiazem HCl 240 mg Capsule,Extended Release 24hr
240 mg PO DAILY
simvastatin 20 mg Tablet
20 mg PO HS
apixaban 2.5 mg Tablet
2.5 mg PO BID
tiotropium bromide [Spiriva with HandiHaler] 18 mcg Capsule, W/Inhalation Device
2 cap INHALATION R DAILY
Patient Comments:
09/27/2023, pt. states that she takes 2 inhalations daily.
Humira(CF) Pen 40 mg/0.4 mL pen injector kit
40 mg SC Q3W
buspirone 5 mg Tablet
10 mg PO TID Qty: 0 0RF
losartan 50 mg tablet
50 mg PO DAILY
rabeprazole 20 mg tablet,delayed release (DR/EC)
20 mg PO DAILY
mirtazapine 15 mg tablet
15 mg PO HS
trazodone 50 mg tablet
100 mg PO HS
estradiol 0.01 % (0.1 mg/gram) Cream
VAGINAL
Rx Instructions:
every 4-5 days
ondansetron 4 mg Tablet,Disintegrating
4 mg PRN (Reason: nausea)
metoprolol succinate
50 mg PO DAILY
alprazolam 0.25 mg tablet
0.25 mg PO HS 14 Days Qty: 14 0RF
Discontinued
furosemide 40 mg tablet
20 mg PO DAILY
Discharge Orders:
Discharge Patient (As Directed); Ordered 12/28/24
Ordered By: Radu Davis
Discharge Date and Time
Discharge Date/Time: 12/28/24 16:18
Print Language: DANISH
== END 2024-12-28 16:18 | DRG 308 ==
LOC: IMU 04:26
PROVIDERS: ADMITTING PHYSICIAN Hospitalist; ATTENDING PHYSICIAN Internal Medicine; EMERGENCY PHYSICIAN Emergency Medicine
DX: I48.21 Permanent atrial fibrillation (principal); E43 Unspecified severe protein-calorie malnutrition; K55.1 Chronic vascular disorders of intestine; Z68.1 Body mass index [BMI] 19.9 or less, adult; I13.0 Hypertensive heart and chronic kidney disease with heart failure and stage 1 through stage 4 chronic kidney disease, or unspecified chronic kidney disease; I50.32 Chronic diastolic (congestive) heart failure; D84.821 Immunodeficiency due to drugs; J96.11 Chronic respiratory failure with hypoxia; R33.9 Retention of urine, unspecified; D63.1 Anemia in chronic kidney disease; I70.1 Atherosclerosis of renal artery; N18.32 Chronic kidney disease, stage 3b; J44.9 Chronic obstructive pulmonary disease, unspecified; M06.9 Rheumatoid arthritis, unspecified; Z79.620 Long term (current) use of immunosuppressive biologic; F41.1 Generalized anxiety disorder; Z66 Do not resuscitate; K21.9 Gastro-esophageal reflux disease without esophagitis; Z87.891 Personal history of nicotine dependence; Z90.710 Acquired absence of both cervix and uterus; E78.00 Pure hypercholesterolemia, unspecified; Z11.52 Encounter for screening for COVID-19
CPT/HCPCS: 71045; 80048; 80053; 81003; 81015; 82607; 82728; 82746; 83540; 83550; 83605; 84484; 85014; 85018; 85025; 85027; 85045; 87502; 87811; 93005; 94640; 97116; 97163; 97167; 97530; J2916